=== PATIENT | female | born 1970 | race Caucasian/White ===

== ENCOUNTER 2018-06-26 11:44 | Emergency (ER) | payer MEDICAID ==
[2018-06-26 11:55] VITALS: BMI 28.6
[2018-06-26] MEDS ORDERED: Sodium Chloride 0.9% 1,000 ML IV STA (12:40)
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
[2018-06-26 15:02] LABS: BASO # 0.01 K/mm3 (0.0-2.0); BASO % 0.1 % (0.0-3.0); EOS % 0.6 % (1.5-5.0); GRAN # 5.35 (1.4-6.5); GRAN % 76.6 % (50.0-68.0); HEMOGLOBIN 11.6 g/dL (12.0-16.0); LYMPH # 0.9 (1.2-3.4); LYMPH % 13.3 % (22.0-35.0); MEAN CELL VOLUME 81.8 fl (80.0-105.0); MEAN CORPUSCULAR HEMOGLOBIN 26.7 pg (25.0-35.0); MEAN CORPUSCULAR HGB CONC 32.7 g/dl (31.0-37.0); MEAN PLATELET VOLUME 10.1 fl (7.0-11.0); MONO # 0.7 (0.1-0.6); MONO % 9.4 % (1.0-6.0); RBC 4.34 10^6/uL (3.5-6.1); RED CELL DISTRIBUTION WIDTH 16.8 % (11.5-14.5)
[2018-06-26 15:03] LABS: ALB/GLOB RATIO 1.2 (1.1-1.8); ALBUMIN 3.9 g/dL (3.0-4.8); ALT/SGPT 22 U/L (7-56); AST/SGOT 22 U/L (14-36); BLOOD UREA NITROGEN 10 mg/dL (7-21); CALCIUM 9.4 mg/dL (8.4-10.5); GFR NON-AFRICAN AMERICAN > 60
[2018-06-26 17:50] VITALS: BP 120/74; RESP 19; TEMP 98
[2018-06-26 17:55] VITALS: PULSE 90; O2SAT 99
--- NOTE | 2018-06-28 20:18 | US ---
HISTORY: Leg pain and swelling. Evaluate for DVT PHYSICIAN(S): Mao Lechuga MD. TECHNIQUE: Duplex sonography and color-flow Doppler with graded compression were used to evaluate the deep venous systems of both lower extremities. FINDINGS: The visualized deep venous systems of both lower extremities are sonographically normal and compressible. Normal wave forms and augmentation are seen. There is no sonographic evidence for deep venous thrombosis in the visualized segments of both lower extremities. IMPRESSION: No sonographic evidence for deep venous thrombosis in the visualized segments of both lower extremities.
== END 2018-06-26 17:56 | disposition left against medical advice (07) ==
LOC: ED 11:44
DX: M79.605 Pain in left leg (principal); M79.604 Pain in right leg

== ENCOUNTER 2018-08-28 14:16 | Emergency (ER) | payer MEDICAID ==
[2018-08-28 14:17] VITALS: BMI 28.6
[2018-08-28 14:35] VITALS: RESP 18; TEMP 98.3
--- NOTE | 2018-08-28 14:41 | ED PDOC ---
Arrival/HPI - General Time Seen by Provider: 08/28/18 14:19 Historian: Patient - History of Present Illness Narrative History of Present Illness (Text): 08/28/18 14:35 47yo female with pmhx of Ovarian CA with mets to her lung and bone (Currently on Chemo) bib EMS for complaint of nausea and vomiting. States she have had nausea and vomiting now daily for months secondary to her Chemo, but she have had 5epsiodes since this morning rather than the 3epsiodes she gets a day. Thinks is secondary to the Oxycodone she started a week ago. Notes generalized pain, which is chronic to her. Denies fever, chills, chest pain, SOB, diaphoresis, urinary symptoms, sick contact, any other complaint. Past Medical History - Provider Review Nursing Documentation Reviewed: Yes - Infectious Disease Hx of Infectious Diseases: None - Tetanus Immunization Tetanus Immunization: Unknown - Cardiac Hx Cardiac Disorders: No - Pulmonary Hx Respiratory Disorders: No - Neurological Hx Neurological Disorder: No - HEENT Hx HEENT Disorder: No - Renal Hx Renal Disorder: No - Endocrine/Metabolic Hx Endocrine Disorders: No - Hematological/Oncological Hx Blood Disorders: No Hx Blood Transfusion Reaction: No - Integumentary Hx Dermatological Disorder: No - Musculoskeletal/Rheumatological Hx Musculoskeletal Disorders: No - Gastrointestinal Hx Gastrointestinal Disorders: No - Genitourinary/Gynecological Hx Genitourinary Disorders: Yes Hx Ovarian Cancer: Yes - Psychiatric Hx Emotional Abuse: No Hx Physical Abuse: No Hx Substance Use: No - Surgical History Other/Comment: ROBOTIC HYSTERECTOMY;OVARIAN CYSTECTOMY - Anesthesia Hx Anesthesia: Yes Hx Anesthesia Reactions: No Hx Malignant Hyperthermia: No - Suicidal Assessment Feels Threatened In Home Enviroment: No Family/Social History - Physician Review Nursing Documentation Reviewed: Yes Family/Social History: Unknown Family HX Smoking Status: Never Smoked Hx Alcohol Use: No Hx Substance Use: No Allergies/Home Meds Allergies/Adverse Reactions: Allergies No Known Allergies Allergy (Verified 06/26/18 11:55) Home Medications: Home Meds Medication Instructions Recorded Confirmed Cyclophosphamide [Cytoxan] 0 mg PO DAILY 06/26/18 06/26/18 RX: Bevacizumab [Avastin] 0 ml IM DAILY 06/26/18 06/26/18 RX: Bevacizumab [Avastin] 0 ml IM DAILY 06/26/18 06/26/18 Prochlorperazine [Compazine] 10 mg PO PRN PRN 08/28/18 08/28/18 oxyCODONE/Acetaminophen [Percocet 1 tab PO PRN PRN 08/28/18 08/28/18 5/325 mg Tab] Review of Systems - Physician Review All systems were reviewed & negative as marked: Yes - Review of Systems Constitutional: Normal Eyes: Normal ENT: Normal Respiratory: Normal Cardiovascular: Normal Gastrointestinal: Nausea, Vomiting. absent: Abdominal Pain, Constipation, Diarrhea, Hematochezia, Hematemesis Genitourinary Female: Normal Musculoskeletal: Myalgias Skin: Normal Neurological: Normal Endocrine: Normal Hemo/Lymphatic: Normal Psychiatric: Normal Physical Exam Temperature: Afebrile Blood Pressure: Normal Pulse: Regular Respiratory Rate: Normal Appearance: Positive for: Well-Appearing, Non-Toxic, Comfortable Pain Distress: None Mental Status: Positive for: Alert and Oriented X 3 - Systems Exam Head: Present: Atraumatic, Normocephalic Pupils: Present: PERRL Extroacular Muscles: Present: EOMI Conjunctiva: Present: Normal Mouth: Present: Moist Mucous Membranes Neck: Present: Normal Range of Motion Respiratory/Chest: Present: Clear to Auscultation, Good Air Exchange. No: Respiratory Distress, Accessory Muscle Use Cardiovascular: Present: Regular Rate and Rhythm, Normal S1, S2. No: Murmurs Abdomen: No: Tenderness, Distention, Peritoneal Signs Back: Present: Normal Inspection Upper Extremity: Present: Normal Inspection. No: Cyanosis, Edema Lower Extremity: Present: Normal Inspection. No: Edema Neurological: Present: GCS=15, CN II-XII Intact, Speech Normal Skin: Present: Warm, Dry, Normal Color. No: Rashes Psychiatric: Present: Alert, Oriented x 3, Normal Insight, Normal Concentration Medical Decision Making ED Course and Treatment: 08/28/18 19:10 PT presented to ED For stated history. Her pain was controlled in ED with dilaudid after the first morning. Lab was reviewed and nonspecific She already have rx antiemesis at home. She was DC home and advised to continue with her medications and follow up with her PMD Disposition/Present on Arrival - Present on Arrival Any Indicators Present on Arrival: No History of DVT/PE: No History of Uncontrolled Diabetes: No Urinary Catheter: No History Surgical Site Infection Following: None - Disposition Have Diagnosis and Disposition been Completed?: Yes Diagnosis: Vomiting alone, Cancer associated pain Disposition: HOME/ ROUTINE Disposition Time: 18:00 Patient Plan: Discharge Condition: STABLE Discharge Instructions (ExitCare): Cancer Pain Syndromes (DC), Nausea and Vomiting, Adult (DC) Additional Instructions: Continue with your medications at home Follow up with your doctor Return to ED for any new or worsening symptoms Referrals: Concha Urban MD [Primary Care Provider] - Follow up with primary Forms: [employer] (Cymro)
[2018-08-28] MEDS ORDERED: Sodium Chloride 0.9% 1,000 ML IV STA (14:45)
[2018-08-28 15:22] LABS: VENOUS BLOOD GAS BASE EXCESS 2.7 mmol/L (0.0-2.0); VENOUS BLOOD GAS PO2 195 mm/Hg (30-55); VENOUS BLOOD PH 7.47 (7.32-7.43)
[2018-08-28] MEDS ORDERED: Morphine 4 mg/ml ISec IVP STA (15:22)
[2018-08-28] MEDS ORDERED: Morphine 2 mg/ml ISec IVP STA ×2 (15:23→16:13)
[2018-08-28 15:25] LABS: EOS % 0.1 % (1.5-5.0); GRAN # 8.64 (1.4-6.5); GRAN % 80.8 % (50.0-68.0); LYMPH # 0.8 (1.2-3.4); LYMPH % 7.4 % (22.0-35.0); MEAN CELL VOLUME 82.5 fl (80.0-105.0); MEAN CORPUSCULAR HEMOGLOBIN 26.6 pg (25.0-35.0); MEAN CORPUSCULAR HGB CONC 32.3 g/dl (31.0-37.0); MEAN PLATELET VOLUME 9.7 fl (7.0-11.0); MONO # 1.3 (0.1-0.6); MONO % 11.7 % (1.0-6.0); RBC 4.51 10^6/uL (3.5-6.1); RED CELL DISTRIBUTION WIDTH 16.2 % (11.5-14.5); WHITE BLOOD COUNT 10.7 10^3/uL (4.5-11.0)
[2018-08-28 15:30] LABS: ALB/GLOB RATIO 1.1 (1.1-1.8); ALBUMIN 4.1 g/dL (3.0-4.8); ALT/SGPT 25 U/L (7-56); AST/SGOT 42 U/L (14-36); BLOOD UREA NITROGEN 19 mg/dL (7-21); CALCIUM 9.7 mg/dL (8.4-10.5); GFR NON-AFRICAN AMERICAN > 60
[2018-08-28 15:31] LABS: INR 1.18; PARTIAL THROMBOPLASTIN TIME 24.9 Seconds (25.1-36.5); PROTHROMBIN TIME 13.5 SECONDS (9.4-12.5)
[2018-08-28] MEDS ORDERED: Potassium Chloride 40 mEq/30 ml LIQ UD PO STA (15:31)
[2018-08-28 15:42] LABS: TROPONIN I < 0.01 ng/mL
--- NOTE | 2018-08-28 15:50 | RAD ---
Date of service: 08/28/2018 HISTORY: Sepsis Patient COMPARISON: No prior. FINDINGS: LUNGS: No pulmonary infiltrate. PLEURA: No significant pleural effusion identified, no pneumothorax apparent. CARDIOVASCULAR: Normal heart size. No congestive change. No atherosclerotic calcification of the thoracic aorta. Left central venous infusion port. Questionable opacity lateral to the thoracic aortic arch. Rule out neoplasm. Additionally there is a nodular opacity at the medial left lung base and additional irregular opacity just above the mid left hemidiaphragm. There is a small rounded nodule at the right lung base and possibly a 2nd nodule. Consider further evaluation with computed tomography of the chest.. OSSEOUS STRUCTURES: No significant abnormalities. VISUALIZED UPPER ABDOMEN: Normal. OTHER FINDINGS: None. IMPRESSION: Multiple nodules and opacities. Consider further evaluation with computed tomography of the chest
[2018-08-28] MEDS ORDERED: HYDROmorphone 1 mg/ml ISec IVP STA (16:20)
[2018-08-28 20:21] VITALS: BP 135/82; PULSE 85; O2SAT 98
== END 2018-08-28 20:20 | disposition home or self-care (01) ==
LOC: ED 14:16
DX: R11.10 Vomiting, unspecified (principal); G89.3 Neoplasm related pain (acute) (chronic); Z85.43 Personal history of malignant neoplasm of ovary
CPT/HCPCS: 71045; 80053; 81025; 82803; 83735; 84100; 84145; 84484; 85025; 85610; 85730; 87040; 96374; 96375; 99285; J1170; J2270; J2405; J2765; J3480; J7030

== ENCOUNTER 2018-11-03 05:39 | Outpatient (CLI) | payer MEDICAID | END 2018-11-03 05:40 | disposition home or self-care (01) | LOC: PET-BROA 05:39 ==

== ENCOUNTER 2018-11-17 07:22 | Inpatient (IN) | payer MEDICAID ==
[2018-11-17 07:41] VITALS: BMI 23.3
[2018-11-17] MEDS ORDERED: Sodium Chloride 0.9% 1,000 ML IV ONE (07:50)
--- NOTE | 2018-11-17 07:59 | ED PDOC ---
Arrival/HPI - General Chief Complaint: Back Pain Time Seen by Provider: 11/17/18 07:25 Historian: Patient - History of Present Illness Narrative History of Present Illness (Text): 11/17/18 07:49 47 year old F with pmhx of Ovarian CA with mets to lung and bone (Currently on Chemo- last was 5d prior), chronic back pain, ovarian oophorectomy presents with chief complaint of chronic back pain. Patient reports she called Dr. Urban this morning who told her to present to the emergency department for evaluation of her back, likely admission and inpatient MRI L-Spine. Patient notes taking prescribed percocet 5/325mg at 0600 this morning which failed to relieve any pain. Patient also complains of left leg weakness x6 months (not recently worsened) mild constipation, and nausea since last night. Patient otherwise denies any enuresis, encoparesis or loss of sensation in her legs. No rash. Patient denies any fevers, chills, headache, dizziness, chest pain, shortness of breath, dyspnea on exertion, cough, diaphoresis, abdominal pain, diarrhea, neck pain, or any other complaint. Oncologist: Dr. Urban Symptom Onset: Gradual Symptom Course: Unchanged Activities at Onset: Light Context: Home Past Medical History - Provider Review Nursing Documentation Reviewed: Yes - Infectious Disease Hx of Infectious Diseases: None - Tetanus Immunization Tetanus Immunization: Unknown - Cardiac Hx Cardiac Disorders: No - Pulmonary Hx Respiratory Disorders: No - Neurological Hx Neurological Disorder: No - HEENT Hx HEENT Disorder: No - Renal Hx Renal Disorder: No - Endocrine/Metabolic Hx Endocrine Disorders: No - Hematological/Oncological Hx Blood Disorders: No Hx Blood Transfusion Reaction: No - Integumentary Hx Dermatological Disorder: No - Musculoskeletal/Rheumatological Hx Musculoskeletal Disorders: No - Gastrointestinal Hx Gastrointestinal Disorders: No - Genitourinary/Gynecological Hx Genitourinary Disorders: Yes Hx Ovarian Cancer: Yes - Psychiatric Hx Emotional Abuse: No Hx Physical Abuse: No Hx Substance Use: No - Surgical History Other/Comment: ROBOTIC HYSTERECTOMY;OVARIAN CYSTECTOMY - Anesthesia Hx Anesthesia: Yes Hx Anesthesia Reactions: No Hx Malignant Hyperthermia: No - Suicidal Assessment Feels Threatened In Home Enviroment: No Family/Social History - Physician Review Nursing Documentation Reviewed: Yes Family/Social History: Unknown Family HX Smoking Status: Never Smoked Hx Alcohol Use: No Hx Substance Use: No Allergies/Home Meds Allergies/Adverse Reactions: Allergies No Known Allergies Allergy (Verified 06/26/18 11:55) Home Medications: Home Meds Medication Instructions Recorded Confirmed Bevacizumab [Avastin] 0 ml IM DAILY 06/26/18 06/26/18 Bevacizumab [Avastin] 0 ml IM DAILY 06/26/18 06/26/18 Cyclophosphamide [Cytoxan] 0 mg PO DAILY 06/26/18 06/26/18 Prochlorperazine [Compazine] 10 mg PO PRN PRN 08/28/18 08/28/18 oxyCODONE/Acetaminophen [Percocet 1 tab PO PRN PRN 08/28/18 08/28/18 5/325 mg Tab] Review of Systems - Physician Review All systems were reviewed & negative as marked: Yes - Review of Systems Constitutional: absent: Fevers Eyes: absent: Vision Changes, Photophobia ENT: absent: Sore Throat, Rhinorrhea Respiratory: absent: SOB, Cough Cardiovascular: absent: Chest Pain, Calf Pain Gastrointestinal: Constipation, Nausea, Vomiting. absent: Abdominal Pain, Diarrhea, Hematochezia Genitourinary Female: absent: Dysuria, Hematuria, Urine Output Changes, Vaginal Bleeding, Vaginal Discharge Musculoskeletal: Back Pain. absent: Neck Pain Skin: absent: Rash Neurological: absent: Headache, Dizziness Physical Exam Vital Signs Reviewed: Yes Vital Signs Temp Pulse Resp BP Pulse Ox 11/17/18 07:32 100 F H 139 H 19 147/91 H 99 Temperature: Afebrile Blood Pressure: Normal Pulse: Tachycardic Respiratory Rate: Normal Appearance: Positive for: Well-Appearing, Non-Toxic, Comfortable Pain Distress: Moderate Mental Status: Positive for: Alert and Oriented X 3 - Systems Exam Head: Present: Atraumatic, Normocephalic Pupils: Present: PERRL Extroacular Muscles: Present: EOMI Conjunctiva: Present: Normal Ears: Present: Normal, NORMAL TM Mouth: Present: Moist Mucous Membranes Neck: Present: Normal Range of Motion. No: Meningeal Signs, MIDLINE TENDERNESS Respiratory/Chest: Present: Clear to Auscultation, Good Air Exchange. No: Respiratory Distress, Accessory Muscle Use Cardiovascular: Present: Regular Rate and Rhythm, Normal S1, S2. No: Murmurs Abdomen: No: Tenderness, Distention, Peritoneal Signs Back: Present: Other (refused back exam) Upper Extremity: Present: Normal Inspection. No: Cyanosis, Edema Lower Extremity: Present: NORMAL PULSES, Neurovascularly Intact, Capillary Refill < 2 s, Other (2/5 strength to LLE (chronic per pt)). No: Edema, CALF TENDERNESS, Tenderness, Swelling, Temperature Abnormalties Neurological: Present: GCS=15, CN II-XII Intact, Speech Normal Skin: Present: Warm, Dry, Normal Color. No: Rashes Psychiatric: Present: Alert, Oriented x 3, Normal Insight, Normal Concentration Medical Decision Making ED Course and Treatment: 11/17/18 07:48 Impression: 47 year old F presents with chief complaint of worsening chronic back pain. Hx of Ovarian cancer w/ mets to L3. Pt reports pain to lower lumbar area, without trauma or cauda equina signs: No enuresis / encoparesis or saddle anesthesia. Pt refuses lower back exam and notes diffuse tenderness to her back. Pt notes previous radiation treatment to her back with improvement 6 months prior but notes increasingly worsening pain over the past 4-5 months. She otherwise denies any abdominal pain, rash. No hx of IVDU or abnormal heart rythmn. No chest pain or shortness of breath. No GI or complaints other than mild constipation. No dark or blood stool. Likely Recurrent L3 metastatic Ovarian CA pain w/ out clinical signs or symptoms of cord compression. Sent in by Dr. Urban for Admission to hospitalist w/ inpt MRI and referral to Dr. Lechuga for possible kyphoplasty. Pt had an PET on 11/04 remarkable to probable pathologic L3 fx. Plan: -- Labs -- EKG -- Chest X-ray -- Toradol -- UA -- Reassess and disposition Prior Visits: Notes and results from previous visits were reviewed. Progress Notes: EKG shows Sinus Tachycardi at 134 BPM, No stemi 11/17/18 09:18 Vitals improved w/ fluids and pain meds, less tachy. Pt endorsed continued pain however with mild improvement, will order additional toradol, morphine. Appreciate consult w/ Dr. Nicole: to admit to his service Placed consult order to Dr. Lechuga. Pt in NAD, agreeable to plan. - Scribe Statement The provider has reviewed the documentation as recorded by the Beverly Mosher All medical record entries made by the Scribe were at my direction and personally dictated by me. I have reviewed the chart and agree that the record accurately reflects my personal performance of the history, physical exam, medical decision making, and the department course for this patient. I have also personally directed, reviewed, and agree with the discharge instructions and disposition. Disposition/Present on Arrival - Present on Arrival Any Indicators Present on Arrival: No History of DVT/PE: No History of Uncontrolled Diabetes: No Urinary Catheter: No History of Decub. Ulcer: No History Surgical Site Infection Following: None - Disposition Have Diagnosis and Disposition been Completed?: Yes Diagnosis: Back pain, Anemia Disposition Time: 08:37 Patient Problems: Current Active Problems Problem Status Onset Anemia Acute Back pain Acute Condition: STABLE Forms: [employer] (Lao)
[2018-11-17 08:20] LABS: BASO # 0.01 K/mm3 (0.0-2.0); BASO % 0.1 % (0.0-3.0); HEMOGLOBIN 8.2 g/dL (12.0-16.0); LYMPH # 0.4 (1.2-3.4); LYMPH % 4.5 % (22.0-35.0); MEAN CELL VOLUME 85.9 fl (80.0-105.0); MEAN CORPUSCULAR HGB CONC 31.4 g/dl (31.0-37.0); MEAN PLATELET VOLUME 8.8 fl (7.0-11.0); MONO % 0.5 % (1.0-6.0); PLATELET COUNT 331 10^3/uL (120.0-450.0); RBC 3.04 10^6/uL (3.5-6.1); RED CELL DISTRIBUTION WIDTH 23.1 % (11.5-14.5)
[2018-11-17 08:56] LABS: LYMPHOCYTE 2 % (22.0-35.0); NEUTROPHIL 98 % (50.0-70.0); PLATELET ESTIMATE NORMAL (NORMAL)
[2018-11-17 09:07] LABS: ALT/SGPT 11 U/L (7-56); AST/SGOT 32 U/L (14-36); BLOOD UREA NITROGEN 10 mg/dL (7-21); CALCIUM 8.2 mg/dL (8.4-10.5); GFR NON-AFRICAN AMERICAN > 60
[2018-11-17] MEDS ORDERED: Morphine 4 mg/ml ISec IVP STA (09:16)
[2018-11-17] MEDS ORDERED: POLYETHYLENE GLYCOL 3350 17 GM/Dose PACKET PO SCH (10:00)
[2018-11-17] MEDS ORDERED: Magnesium Oxide 400 mg Tab UD PO STA (10:01)
--- NOTE | 2018-11-17 10:02 | CP.PCM.HP ---
<Genaro Waller - Last Filed: 11/17/18 14:08> History of Present Illness - History of Present Illness History of Present Illness: PGY-1 Medicine H&P for Dr. Nicole CC: Intractable back pain Patient is a 47 year old female with past medical history of ovarian cancer s/p ovarian oophorectomy with mets to lung and bone (Currently on Chemo- last was 5 days prior), chronic back pain, presents with chief complaint of chronic back pain. Patient reports that she saw her PMD, Dr. Urban this morning who told her to present to the emergency department for evaluation of her back pain. She is complaining of lower back pain that she describes as sharp, 10/10 at its worst, and prevents her from ambulating. She is also complaining of pain on her right upper chest which is also sharp in nature. She states that she takes Percocet and Motrin at home which only helps a little bit. Patient is currently on chemotherapy and admits to not having much of an appetite lately. She is complaining of constipation and her last bowel movement was 10 days ago. Patient denies any fevers, chills, headache, dizziness, chest pain, shortness of breath, dyspnea on exertion, cough, diaphoresis, abdominal pain, diarrhea, neck pain, or urinary symptoms. 12 point ROS reviewed and negative except mentioned in HPI. PMH: Ovarian cancer s/p ovarian oophorectomy with mets to lung and bone (Currently on Chemo- last was 5d prior), chronic back pain PSHx: Ovarian oophorectomy Social Hx: Denies alcohol, tobacco, or drug use. Family Hx: denies Allergies: NKDA PMD/Oncologist: Dr. Urban Present on Admission - Present on Admission Any Indicators Present on Admission: No History of DVT/PE: No History of Uncontrolled Diabetes: No Urinary Catheter: No Decubitus Ulcer Present: No Past Patient History - Infectious Disease Hx of Infectious Diseases: None - Tetanus Immunizations Tetanus Immunization: Unknown - Past Medical History & Family History Past Medical History?: Yes - Past Social History Smoking Status: Never Smoked - CARDIAC Hx Cardiac Disorders: No - PULMONARY Hx Respiratory Disorders: No - NEUROLOGICAL Hx Neurological Disorder: No - HEENT Hx HEENT Problems: No - RENAL Hx Chronic Kidney Disease: No - ENDOCRINE/METABOLIC Hx Endocrine Disorders: No - HEMATOLOGICAL/ONCOLOGICAL Hx Blood Disorders: No Hx Blood Transfusion Reaction: No - INTEGUMENTARY Hx Dermatological Problems: No - MUSCULOSKELETAL/RHEUMATOLOGICAL Hx Musculoskeletal Disorders: No - GASTROINTESTINAL Hx Gastrointestinal Disorders: No - GENITOURINARY/GYNECOLOGICAL Hx Genitourinary Disorders: Yes Hx Ovarian Cancer: Yes - PSYCHIATRIC Hx Emotional Abuse: No Hx Physical Abuse: No Hx Substance Use: No - SURGICAL HISTORY Other/Comment: ROBOTIC HYSTERECTOMY;OVARIAN CYSTECTOMY - ANESTHESIA Hx Anesthesia: Yes Hx Anesthesia Reactions: No Hx Malignant Hyperthermia: No Meds Allergies/Adverse Reactions: Allergies Allergy/AdvReac Type Severity Reaction Status Date / Time No Known Allergies Allergy Verified 06/26/18 11:55 Physical Exam - Constitutional Appears: Chronically Ill Additional comments: Uncomfortable, in pain - Head Exam Head Exam: ATRAUMATIC, NORMAL INSPECTION - Eye Exam Eye Exam: EOMI, Normal appearance - ENT Exam ENT Exam: Normal Oropharynx Additional comments: No oral thrush noted - Respiratory Exam Respiratory Exam: Clear to Auscultation Bilateral. absent: Rales, Rhonchi, Wheezes, Respiratory Distress - Cardiovascular Exam Cardiovascular Exam: Tachycardia, +S1, +S2. absent: Gallop, Rubs, Systolic Mur mur - GI/Abdominal Exam GI & Abdominal Exam: Normal Bowel Sounds, Soft. absent: Distended, Guarding, Tenderness - Extremities Exam Extremities exam: Positive for: tenderness - Neurological Exam Neurological exam: Alert, CN II-XII Intact, Oriented x3 - Psychiatric Exam Psychiatric exam: Normal Affect, Normal Mood - Skin Skin Exam: Dry, Intact, Normal Color, Warm Results - Vital Signs Recent Vital Signs: Last Vital Signs Temp 100 F H 11/17/18 07:32 Pulse 130 H 11/17/18 09:25 Resp 18 11/17/18 09:25 BP 120/75 11/17/18 09:25 Pulse Ox 99 11/17/18 09:25 - Labs Result Diagrams: 11/17/18 08:00 11/17/18 08:00 Labs: Laboratory Results - last 24 hr 11/17/18 11/17/18 08:00 08:00 WBC 8.0 D RBC 3.04 L Hgb 8.2 L D Hct 26.1 L MCV 85.9 D MCH 27.0 MCHC 31.4 RDW 23.1 H Plt Count 331 MPV 8.8 Neut % (Auto) 94.9 H Lymph % (Auto) 4.5 L [place] % (Auto) 0.5 L Eos % (Auto) 0.0 L Baso % (Auto) 0.1 Lymph # (Auto) 0.4 L [place] # (Auto) 0.0 L Eos # (Auto) 0.0 Baso # (Auto) 0.01 Absolute Neuts (auto) 7.58 H Neutrophils % (Manual) 98 H Lymphocytes % (Manual) 2 L Monocytes % (Manual) TEST NOT PERFORMED Platelet Evaluation Normal Sodium 131 L Chloride 92 L Carbon Dioxide 31 BUN 10 Creatinine 0.3 L Est GFR ( Amer) > 60 Est GFR (Non-Af Amer) > 60 Random Glucose 187 H Calcium 8.2 L Magnesium 1.5 L Total Bilirubin 0.3 AST 32 ALT 11 Alkaline Phosphatase 106 Total Protein 6.1 Albumin 3.0 Globulin 3.1 Albumin/Globulin Ratio 1.0 L Assessment & Plan - Assessment and Plan (Free Text) Assessment: Patient is a 47 year old female with past medical histiry of ovarian cancer with mets to lung and bone (Currently on Chemo- last was 5d prior), chronic back mike n, ovarian oophorectomy presents with chief complaint of intractable back pain. Plan: Intractable back pain- likely 2/2 to metastatic cancer - PET Scan (11/03): Pulmonary and osseous metastatic disease. Lytic lesion at L3 vertebral body with cortical disruption concerning for pathologic fracture. - MRI of Lumbar spine: pending - Toradol 15mg IV Q6 PRN - Morphine 2mf Q6 PRN - Heme-Onc consulted, Dr. John Urban - IR consulted, Dr. Mao Lechuga - PT/OT evaluation Sinus tachycardia- r/o Pulmonary Embolism - Likely 2/2 pain - EKG: Sinus tachycardia @ 135, no ST changes - LE Venous Dopplers: No DVT - Pain control with Toradol and Morphine - Troponin: <0.01 X 1 Normocytic anemia - Iron studies, reticulocytes, B12, folate: pending - Heme-onc consulted, Dr. John Urban - Type and screen Hypokalemia, hypomagnesemia - Potassium and magnesium repleted - Continue to monitor Constipation - Miralax daily Prophylaxis - Hold AC for now Patient seen and case discussed with attending, Dr. Corey Waller, PGY-1 <Elvia Nicole - Last Filed: 11/17/18 14:53> Results - Vital Signs Recent Vital Signs: Last Vital Signs Temp 98 F 11/17/18 12:28 Pulse 113 H 11/17/18 13:51 Resp 18 11/17/18 13:51 BP 130/95 H 11/17/18 12:28 Pulse Ox 100 11/17/18 11:28 - Labs Result Diagrams: 11/17/18 08:00 11/17/18 08:00 Labs: Laboratory Results - last 24 hr 11/17/18 11/17/18 11/17/18 08:00 08:00 09:51 WBC 8.0 D RBC 3.04 L Hgb 8.2 L D Hct 26.1 L MCV 85.9 D MCH 27.0 MCHC 31.4 RDW 23.1 H Plt Count 331 MPV 8.8 Neut % (Auto) 94.9 H Lymph % (Auto) 4.5 L [place] % (Auto) 0.5 L Eos % (Auto) 0.0 L Baso % (Auto) 0.1 Lymph # (Auto) 0.4 L [place] # (Auto) 0.0 L Eos # (Auto) 0.0 Baso # (Auto) 0.01 Absolute Neuts (auto) 7.58 H Neutrophils % (Manual) 98 H Lymphocytes % (Manual) 2 L Monocytes % (Manual) TEST NOT PERFORMED Platelet Evaluation Normal Retic Count Sodium 131 L Potassium 2.9 L* Chloride 92 L Carbon Dioxide 31 Anion Gap 11 BUN 10 Creatinine 0.3 L Est GFR ( Amer) > 60 Est GFR (Non-Af Amer) > 60 Random Glucose 187 H Calcium 8.2 L Magnesium 1.5 L Iron TIBC % Saturation Total Bilirubin 0.3 AST 32 ALT 11 Alkaline Phosphatase 106 Troponin I Total Protein 6.1 Albumin 3.0 Globulin 3.1 Albumin/Globulin Ratio 1.0 L Blood Type O POSITIVE Blood Type Confirm Antibody Screen Negative BBK History Checked No verified bt 11/17/18 11/17/18 11/17/18 09:59 09:59 09:59 WBC RBC Hgb Hct MCV MCH MCHC RDW Plt Count MPV Neut % (Auto) Lymph % (Auto) [place] % (Auto) Eos % (Auto) Baso % (Auto) Lymph # (Auto) [place] # (Auto) Eos # (Auto) Baso # (Auto) Absolute Neuts (auto) Neutrophils % (Manual) Lymphocytes % (Manual) Monocytes % (Manual) Platelet Evaluation Retic Count 0.26 L Sodium Potassium Chloride Carbon Dioxide Anion Gap BUN Creatinine Est GFR ( Amer) Est GFR (Non-Af Amer) Random Glucose Calcium Magnesium Iron 71 TIBC 160 L % Saturation 45 Total Bilirubin AST ALT Alkaline Phosphatase Troponin I < 0.01 Total Protein Albumin Globulin Albumin/Globulin Ratio Blood Type Blood Type Confirm Antibody Screen BBK History Checked 11/17/18 10:06 WBC RBC Hgb Hct MCV MCH MCHC RDW Plt Count MPV Neut % (Auto) Lymph % (Auto) [place] % (Auto) Eos % (Auto) Baso % (Auto) Lymph # (Auto) [place] # (Auto) Eos # (Auto) Baso # (Auto) Absolute Neuts (auto) Neutrophils % (Manual) Lymphocytes % (Manual) Monocytes % (Manual) Platelet Evaluation Retic Count Sodium Potassium Chloride Carbon Dioxide Anion Gap BUN Creatinine Est GFR ( Amer) Est GFR (Non-Af Amer) Random Glucose Calcium Magnesium Iron TIBC % Saturation Total Bilirubin AST ALT Alkaline Phosphatase Troponin I Total Protein Albumin Globulin Albumin/Globulin Ratio Blood Type Blood Type Confirm O POSITIVE Antibody Screen BBK History Checked Attending/Attestation - Attestation I have personally seen and examined this patient.: Yes I have fully participated in the care of the patient.: Yes I have reviewed all pertinent clinical information: Yes Notes (Text): 11/17/18 14:47 47 year old female with past medical history of metastatic ovarian cancer (to lung and bone) on chemotherapy, history of ovarian oopherectomy, and history of chronic back pain who presents with complaint of intractable back pain. She had a recent outpatient PET scan which showed pulmonary and osseous metastatic disease; lytic lesion at L3 vertebral body with cortical disruption concerning for pathologic fracture. MRI spine is ordered. Continue with analgesics prn for pain. IR evaluation is ordered as per outpatient PMD request for evaluation of possible kyphoplasty. Patient may need PT as well. Serial cardiac enzymes are ordered for complaint of chest pain. EKG showed sinus tachycardia. Sinus tachycardia likely secondary to pain. Analgesics ordered as above. LE dopplers were negative for DVT. Patient is not hypoxic. Patient also found to have normocytic anemia. Anemia workup is ordered as above. Will follow up with hematology/oncology recommendations. Will start on miralax for complaint of constipation. Replete and repeat lytes. Elvia Nicole MD Hospitalist.
[2018-11-17] MEDS ORDERED: Potassium Chloride 20 mEq ER Tab PO STA (10:22)
--- NOTE | 2018-11-17 10:30 | RAD ---
Date of service: 11/17/2018 HISTORY: back pain COMPARISON: 08/28/2018 TECHNIQUE: 1 view obtained. FINDINGS: LUNGS: 4.8 cm mass in the left upper lobe. There is a 12 mm nodule at the right lung base. Findings are unchanged PLEURA: No significant pleural effusion identified, no pneumothorax apparent. CARDIOVASCULAR: No aortic atherosclerotic calcification present. Normal cardiac size. No pulmonary vascular congestion. OSSEOUS STRUCTURES: No significant abnormalities. VISUALIZED UPPER ABDOMEN: Normal. OTHER FINDINGS: Port-A-Cath IMPRESSION: 4.8 cm mass in the left upper lobe. There is a 12 mm nodule at the right lung base. Findings are unchanged
[2018-11-17 10:37] LABS: IRON 71 ug/dL (45-180)
[2018-11-17 10:46] LABS: % IRON SATURATION 45 % (20-55); TOTAL IRON BINDING CAPACITY 160 ug/dL (265-497)
[2018-11-17 10:49] LABS: TROPONIN I < 0.01 ng/mL
--- NOTE | 2018-11-17 11:34 | CARD ---
APPROVED REPORT Date of service: 11/17/2018 EKG Measurement Heart [id number] <Conclusion> Sinus tachycardia Otherwise normal ECG
[2018-11-17] MEDS ORDERED: Influenza Vaccine 60 mcg/0.5 mL SYR (4YR UP) IM ONE (14:19)
[2018-11-17] MEDS ORDERED: Gadodiamide 287 MG/ML VIAL (15ML) IV ONE (14:23)
--- NOTE | 2018-11-17 15:18 | MRI ---
Date of service: 11/17/2018 PROCEDURE: MR LUMBAR SPINE WITH AND WITHOUT CONTRAST HISTORY: rule out mets. COMPARISON: None available. TECHNIQUE: Multiecho multiplanar sequences were performed through the lumbar spine with and without the use of intravenous contrast. 15 cc of Omniscan FINDINGS: Normal lumbar lordosis. Vertebral body heights are preserved. Diffuse metastatic disease is seen throughout the spine. Conus medullaris unremarkable at the level of T12 Paraspinal soft tissues are unremarkable. There enhancement of the bony metastases. There is no evidence of epidural tumor invasion T12-L1: No disc herniation, spinal canal stenosis or neural foraminal narrowing. L1-2: No disc herniation, spinal canal stenosis or neural foraminal narrowing. L2-3: No disc herniation, spinal canal stenosis or neural foraminal narrowing. L3-4: No disc herniation, spinal canal stenosis or neural foraminal narrowing. L4-5: No disc herniation, spinal canal stenosis or neural foraminal narrowing. L5-S1: There is disc bulging and degeneration with mild anterolisthesis at L5-S1. There is moderate to severe bilateral foraminal stenosis but no central stenosis. OTHER FINDINGS: None. IMPRESSION: Diffuse bony metastatic disease throughout the spine. No evidence of vertebral compression fracture or epidural invasion. Disc degeneration with foraminal stenosis at L5-S1
[2018-11-17 16:15] LABS: BLOOD UREA NITROGEN 8 mg/dL (7-21); CALCIUM 8.1 mg/dL (8.4-10.5); GFR NON-AFRICAN AMERICAN > 60
[2018-11-17] MEDS: Morphine 2 mg/ml ISec IVP PRN (16:16)
[2018-11-17 16:17] LABS: TROPONIN I < 0.01 ng/mL
[2018-11-17 17:29] LABS: URINE BILIRUBIN NEGATIVE (NEGATIVE); URINE BLOOD NEGATIVE (NEGATIVE); URINE GLUCOSE (UA) NEGATIVE (NEGATIVE); URINE LEUKOCYTE ESTERASE MODERATE Leu/uL (NEGATIVE); URINE PROTEIN NEGATIVE mg/dL (<30 mg/dL)
[2018-11-17 17:32] LABS: URINE APPEARANCE SL CLOUDY (CLEAR); URINE COLOR YELLOW (YELLOW)
[2018-11-17 17:47] LABS: URINE BACTERIA MOD /hpf; URINE WBC 25 - 30 /hpf (0-6)
[2018-11-17 18:06] LABS: FOLATE 2.6 ng/mL
[2018-11-17] MEDS ORDERED: Morphine 2 mg/ml ISec IVP ONE (18:28)
--- NOTE | 2018-11-17 22:17 | CP.PCM.CON ---
History of Present Illness - History of Present Illness History of Present Illness: 47 year old female with a history of stage IV ovarian cancer on chemotherapy, presenting with intractable back pain. The patient notes to worsening lower back pain which is 10/10 at times. An outpatient PET CT scan was suggestive of pathologic vertebral body fracture involving the L-spine. Case discussed with Dr. Lechuga for possibility of kyphoplasty pending MRI results. Past medical history: Stage IV ovarian cancer Past surgical history: DRAFTER SEISMOGRAPH debulking surgery Family history: Denies hematologic and oncologic problems Social history: Denies tobacco, alcohol, and illicit drug use. Allergies: NKA Review of systems: All remaining review of systems including HEENT, cardiovascular, respiratory, gastrointestinal, genitourinary,k musculoskeletal, dermatologic, neurologic, and psychiatric are negative unless mentioned in the HPI. Past Patient History - Infectious Disease Hx of Infectious Diseases: None - Tetanus Immunizations Tetanus Immunization: Unknown - Past Medical History & Family History Past Medical History?: Yes - Past Social History Smoking Status: Never Smoked - CARDIAC Hx Cardiac Disorders: No - PULMONARY Hx Respiratory Disorders: No - NEUROLOGICAL Hx Neurological Disorder: No - HEENT Hx HEENT Problems: No - RENAL Hx Chronic Kidney Disease: No - ENDOCRINE/METABOLIC Hx Endocrine Disorders: No - HEMATOLOGICAL/ONCOLOGICAL Hx Blood Disorders: No Hx Blood Transfusion Reaction: No - INTEGUMENTARY Hx Dermatological Problems: No - MUSCULOSKELETAL/RHEUMATOLOGICAL Hx Musculoskeletal Disorders: No - GASTROINTESTINAL Hx Gastrointestinal Disorders: No - GENITOURINARY/GYNECOLOGICAL Hx Genitourinary Disorders: Yes Hx Ovarian Cancer: Yes - PSYCHIATRIC Hx Emotional Abuse: No Hx Physical Abuse: No Hx Substance Use: No - SURGICAL HISTORY Other/Comment: ROBOTIC HYSTERECTOMY;OVARIAN CYSTECTOMY - ANESTHESIA Hx Anesthesia: Yes Hx Anesthesia Reactions: No Hx Malignant Hyperthermia: No Meds Allergies/Adverse Reactions: Allergies Allergy/AdvReac Type Severity Reaction Status Date / Time No Known Allergies Allergy Verified 06/26/18 11:55 - Medications Medications: Current Medications Ketorolac Tromethamine (Toradol) 15 mg IVP Q6 PRN PRN Reason: Pain, Mild (1-3) Last Admin: 11/17/18 18:59 Dose: 15 mg Lidocaine (Lidoderm) 1 ea TD DAILY MARYSE Morphine Sulfate (Morphine) 2 mg IVP Q6 PRN PRN Reason: Pain, severe (8-10) Last Admin: 11/17/18 16:16 Dose: 2 mg Ondansetron HCl (Zofran Inj) 4 mg IVP Q6H PRN PRN Reason: Nausea/Vomiting Polyethylene Glycol (Miralax) 17 gm PO DAILY MARYSE Last Admin: 11/17/18 12:34 Dose: 17 gm Physical Exam - Head Exam Head Exam: ATRAUMATIC - Eye Exam Eye Exam: Normal appearance - ENT Exam ENT Exam: Mucous Membranes Dry - Respiratory Exam Respiratory Exam: NORMAL BREATHING PATTERN - Cardiovascular Exam Cardiovascular Exam: +S1, +S2 - GI/Abdominal Exam GI & Abdominal Exam: Normal Bowel Sounds - Extremities Exam Extremities exam: Positive for: normal inspection - Neurological Exam Neurological exam: Oriented x3 - Psychiatric Exam Psychiatric exam: Normal Affect, Normal Mood - Skin Skin Exam: Warm Results - Vital Signs Recent Vital Signs: Last Vital Signs Temp 99 F 11/17/18 17:17 Pulse 130 H 11/17/18 17:17 Resp 18 11/17/18 17:17 BP 117/61 11/17/18 17:17 Pulse Ox 100 11/17/18 11:28 - Labs Result Diagrams: 11/17/18 08:00 11/17/18 15:50 Labs: Laboratory Results - last 24 hr 11/17/18 11/17/18 11/17/18 08:00 08:00 09:51 WBC 8.0 D RBC 3.04 L Hgb 8.2 L D Hct 26.1 L MCV 85.9 D MCH 27.0 MCHC 31.4 RDW 23.1 H Plt Count 331 MPV 8.8 Neut % (Auto) 94.9 H Lymph % (Auto) 4.5 L [place] % (Auto) 0.5 L Eos % (Auto) 0.0 L Baso % (Auto) 0.1 Lymph # (Auto) 0.4 L [place] # (Auto) 0.0 L Eos # (Auto) 0.0 Baso # (Auto) 0.01 Absolute Neuts (auto) 7.58 H Neutrophils % (Manual) 98 H Lymphocytes % (Manual) 2 L Monocytes % (Manual) TEST NOT PERFORMED Platelet Evaluation Normal Retic Count Sodium 131 L Potassium 2.9 L* Chloride 92 L Carbon Dioxide 31 Anion Gap 11 BUN 10 Creatinine 0.3 L Est GFR ( Amer) > 60 Est GFR (Non-Af Amer) > 60 Random Glucose 187 H Calcium 8.2 L Magnesium 1.5 L Iron TIBC % Saturation Ferritin Total Bilirubin 0.3 AST 32 ALT 11 Alkaline Phosphatase 106 Troponin I Total Protein 6.1 Albumin 3.0 Globulin 3.1 Albumin/Globulin Ratio 1.0 L Vitamin B12 Folate Urine Color Urine Appearance Urine pH Ur Specific [place] Urine Protein Urine Glucose (UA) Urine Ketones Urine Blood Urine Nitrate Urine Bilirubin Urine Urobilinogen Ur Leukocyte Esterase Urine RBC Urine WBC Ur Epithelial Cells Urine Bacteria Blood Type O POSITIVE Blood Type Confirm Antibody Screen Negative BBK History Checked No verified bt 11/17/18 11/17/18 11/17/18 09:59 09:59 09:59 WBC RBC Hgb Hct MCV MCH MCHC RDW Plt Count MPV Neut % (Auto) Lymph % (Auto) [place] % (Auto) Eos % (Auto) Baso % (Auto) Lymph # (Auto) [place] # (Auto) Eos # (Auto) Baso # (Auto) Absolute Neuts (auto) Neutrophils % (Manual) Lymphocytes % (Manual) Monocytes % (Manual) Platelet Evaluation Retic Count 0.26 L Sodium Potassium Chloride Carbon Dioxide Anion Gap BUN Creatinine Est GFR ( Amer) Est GFR (Non-Af Amer) Random Glucose Calcium Magnesium Iron 71 TIBC 160 L % Saturation 45 Ferritin 862.0 Total Bilirubin AST ALT Alkaline Phosphatase Troponin I < 0.01 Total Protein Albumin Globulin Albumin/Globulin Ratio Vitamin B12 571 Folate 2.6 Urine Color Urine Appearance Urine pH Ur Specific [place] Urine Protein Urine Glucose (UA) Urine Ketones Urine Blood Urine Nitrate Urine Bilirubin Urine Urobilinogen Ur Leukocyte Esterase Urine RBC Urine WBC Ur Epithelial Cells Urine Bacteria Blood Type Blood Type Confirm Antibody Screen BBK History Checked 11/17/18 11/17/18 11/17/18 10:06 15:50 17:20 WBC RBC Hgb Hct MCV MCH MCHC RDW Plt Count MPV Neut % (Auto) Lymph % (Auto) [place] % (Auto) Eos % (Auto) Baso % (Auto) Lymph # (Auto) [place] # (Auto) Eos # (Auto) Baso # (Auto) Absolute Neuts (auto) Neutrophils % (Manual) Lymphocytes % (Manual) Monocytes % (Manual) Platelet Evaluation Retic Count Sodium 133 Potassium 3.6 Chloride 94 L Carbon Dioxide 29 Anion Gap 14 BUN 8 Creatinine 0.3 L Est GFR ( Amer) > 60 Est GFR (Non-Af Amer) > 60 Random Glucose 86 Calcium 8.1 L Magnesium Iron TIBC % Saturation Ferritin Total Bilirubin AST ALT Alkaline Phosphatase Troponin I < 0.01 Total Protein Albumin Globulin Albumin/Globulin Ratio Vitamin B12 Folate Urine Color Yellow Urine Appearance Sl cloudy Urine pH 6.0 Ur Specific [place] 1.015 Urine Protein Negative Urine Glucose (UA) Negative Urine Ketones Negative Urine Blood Negative Urine Nitrate Negative Urine Bilirubin Negative Urine Urobilinogen 1.0 H Ur Leukocyte Esterase Moderate H Urine RBC None Urine WBC 25 - 30 H Ur Epithelial Cells 6 - 8 H Urine Bacteria Mod Blood Type Blood Type Confirm O POSITIVE Antibody Screen BBK History Checked 11/17/18 21:44 WBC RBC Hgb Hct MCV MCH MCHC RDW Plt Count MPV Neut % (Auto) Lymph % (Auto) [place] % (Auto) Eos % (Auto) Baso % (Auto) Lymph # (Auto) [place] # (Auto) Eos # (Auto) Baso # (Auto) Absolute Neuts (auto) Neutrophils % (Manual) Lymphocytes % (Manual) Monocytes % (Manual) Platelet Evaluation Retic Count Sodium Potassium Chloride Carbon Dioxide Anion Gap BUN Creatinine Est GFR ( Amer) Est GFR (Non-Af Amer) Random Glucose Calcium Magnesium Iron TIBC % Saturation Ferritin Total Bilirubin AST ALT Alkaline Phosphatase Troponin I < 0.01 Total Protein Albumin Globulin Albumin/Globulin Ratio Vitamin B12 Folate Urine Color Urine Appearance Urine pH Ur Specific [place] Urine Protein Urine Glucose (UA) Urine Ketones Urine Blood Urine Nitrate Urine Bilirubin Urine Urobilinogen Ur Leukocyte Esterase Urine RBC Urine WBC Ur Epithelial Cells Urine Bacteria Blood Type Blood Type Confirm Antibody Screen BBK History Checked Assessment & Plan (1) Back pain Assessment and Plan: pathologic fracture by PET CT for possible kyphoplasty by Dr. Lechuga pending MRI L-spine pain meds with bowel regimen Status: Acute (2) Anemia Assessment and Plan: secondary to chemotherapy and chronic disease from malignancy will give a dose of Aranesp Status: Acute (3) Ovarian cancer Assessment and Plan: stage IV bone metastasis on salvage chemotherapy (Doxil + Avastin) outpatient treatment Thank you for this interesting consult. Status: Acute
[2018-11-18 06:28] LABS: BASO # 0.01 K/mm3 (0.0-2.0); BASO % 0.3 % (0.0-3.0); LYMPH # 0.3 (1.2-3.4); LYMPH % 7.6 % (22.0-35.0); MEAN CELL VOLUME 87.2 fl (80.0-105.0); MEAN CORPUSCULAR HEMOGLOBIN 26.3 pg (25.0-35.0); MEAN CORPUSCULAR HGB CONC 30.2 g/dl (31.0-37.0); MEAN PLATELET VOLUME 9.3 fl (7.0-11.0); MONO # 0.1 (0.1-0.6); MONO % 1.5 % (1.0-6.0); RBC 3.04 10^6/uL (3.5-6.1)
[2018-11-18 07:42] LABS: ALB/GLOB RATIO 0.9 (1.1-1.8); ALBUMIN 3.2 g/dL (3.0-4.8); ALT/SGPT 27 U/L (7-56); AST/SGOT 62 U/L (14-36); BLOOD UREA NITROGEN 8 mg/dL (7-21); CALCIUM 8.6 mg/dL (8.4-10.5); GFR NON-AFRICAN AMERICAN > 60
[2018-11-18] MEDS: Sodium Chloride 0.45% 1,000 ML IV SCH (10:59)
[2018-11-18] MEDS: POLYETHYLENE GLYCOL 3350 17 GM/Dose PACKET PO SCH ×2 (10:59→18:08)
[2018-11-18] MEDS: Lidocaine 5% Patch TD SCH (10:59)
[2018-11-18] MEDS: Morphine 2 mg/ml ISec IVP PRN ×2 (11:05→22:01)
[2018-11-18 11:54] LABS: INR 1.27; PARTIAL THROMBOPLASTIN TIME 30.4 Seconds (26.9-38.3); PROTHROMBIN TIME 14.4 SECONDS (9.4-12.5)
--- NOTE | 2018-11-18 13:14 | CP.PCM.PN ---
<Luis Craft - Last Filed: 11/18/18 13:10> Subjective - Date & Time of Evaluation Date of Evaluation: 11/18/18 Time of Evaluation: 08:00 - Subjective Subjective: Luis Craft PGY-1 Progress Note for Hospitalist Service Patient seen and evaluated at bedside. No acute events reported overnight. Patient reports L chest pain and lower back pain. Patient lying in bed with family member at bedside. Objective - Vital Signs/Intake and Output Vital Signs (last 24 hours): Temp Pulse Resp BP Pulse Ox 98.5 F 114 H 20 124/80 98 11/18/18 12:00 11/18/18 12:00 11/18/18 12:00 11/18/18 12:00 11/18/18 06:00 Intake and Output: 11/18/18 11/18/18 06:59 18:59 Intake Total 600 Output Total 400 Balance 200 - Medications Medications: Current Medications Sodium Chloride (Sodium Chloride 0.45%) 1,000 mls @ 100 mls/hr IV .Q10H [facility] Stop: 11/19/18 12:00 Last Admin: 11/18/18 10:59 Dose: 100 mls/hr Ketorolac Tromethamine (Toradol) 15 mg IVP Q6 PRN PRN Reason: Pain, Mild (1-3) Last Admin: 11/18/18 12:35 Dose: 15 mg Lidocaine (Lidoderm) 1 ea TD DAILY [facility] Last Admin: 11/18/18 10:59 Dose: 1 ea Morphine Sulfate (Morphine) 2 mg IVP Q6 PRN PRN Reason: Pain, severe (8-10) Last Admin: 11/18/18 11:05 Dose: 2 mg Ondansetron HCl (Zofran Inj) 4 mg IVP Q6H PRN PRN Reason: Nausea/Vomiting Polyethylene Glycol (Miralax) 17 gm PO BID [facility] Last Admin: 11/18/18 10:59 Dose: 17 gm - Labs Labs: 11/18/18 05:30 11/18/18 05:30 PT 14.4 SECONDS (9.4-12.5) H 11/18/18 11:30 INR 1.27 11/18/18 11:30 APTT 30.4 Seconds (26.9-38.3) 11/18/18 11:30 - Additional Findings Additional findings: - Constitutional Appears: Chronically Ill Additional comments: Uncomfortable, in pain - Head Exam Head Exam: ATRAUMATIC, NORMAL INSPECTION - Eye Exam Eye Exam: EOMI, Normal appearance - ENT Exam ENT Exam: Normal Oropharynx Additional comments: No oral thrush noted - Respiratory Exam Respiratory Exam: Clear to Auscultation Bilateral. absent: Rales, Rhonchi, Wheezes, Respiratory Distress - Back exam vertebral TTP - Cardiovascular Exam Cardiovascular Exam: Tachycardia, +S1, +S2. absent: Gallop, Rubs, Systolic Murmur - GI/Abdominal Exam GI & Abdominal Exam: Normal Bowel Sounds, Soft. absent: Distended, Guarding, Tenderness - Extremities Exam Extremities exam: Positive for: tenderness - Neurological Exam Neurological exam: Alert, CN II-XII Intact, Oriented x3 - Psychiatric Exam Psychiatric exam: Normal Affect, Normal Mood - Skin Skin Exam: Dry, Intact, Normal Color, Warm Assessment and Plan - Assessment and Plan (Free Text) Assessment: Patient is a 47 year old female with past medical histiry of ovarian cancer with mets to lung and bone (Currently on Chemo- last was 5d prior), chronic back pain, ovarian oophorectomy presents with chief complaint of intractable back pain. Plan: Intractable back pain- likely 2/2 to metastatic cancer - PET Scan (11/03): Pulmonary and osseous metastatic disease. Lytic lesion at L3 vertebral body with cortical disruption concerning for pathologic fracture. - MRI of Lumbar spine: Diffuse bony metastatic disease throughout the spine. No evidence of vertebral compression fracture or epidural invasion. Disc degeneration with foraminal stenosis at L5-S1 - CA 125 elevated at 167 - Toradol 15mg IV Q6 PRN - Morphine 2mf Q6 PRN - Heme-Onc consulted, Dr. John Urban - further recs appreciated - IR consulted, Dr. Mao Lechuga - plan for kyphoplasty and ablation today to L3 - further recs appreciated. - PT/OT evaluation appreciated Sinus tachycardia- r/o Pulmonary Embolism - Improved to 114 bpm - Likely 2/2 pain - EKG: Sinus tachycardia @ 135, no ST changes - LE Venous Dopplers: No DVT - Pain control with Toradol and Morphine - Troponin: <0.01 X 3 Normocytic anemia - Iron 71, TIBC 160, Ferritin 862, B12 571 - Heme-onc consulted, Dr. John Urban - anemia 2/2 chemotherapy and chronic disease from malignancy, will give a dose of Aranesp Folate deficiency - level of 2.6 - RBC folate pending - repletion Hypokalemia, hypomagnesemia - resolved - Continue to monitor Constipation - Miralax daily Prophylaxis - Continue to hold AC for now in light of intervention Patient seen, case reviewed and plan approved by Dr. Nicole. Luis Craft, PGY-1 <Elvia Nicole - Last Filed: 11/18/18 14:05> Objective - Vital Signs/Intake and Output Vital Signs (last 24 hours): Temp Pulse Resp BP Pulse Ox 98.5 F 114 H 20 124/80 98 11/18/18 12:00 11/18/18 12:00 11/18/18 12:00 11/18/18 12:00 11/18/18 06:00 Intake and Output: 11/18/18 11/18/18 06:59 18:59 Intake Total 600 Output Total 400 Balance 200 - Medications Medications: Current Medications Folic Acid (Folic Acid) 1 mg PO DAILY [facility] Sodium Chloride (Sodium Chloride 0.45%) 1,000 mls @ 100 mls/hr IV .Q10H [facility] Stop: 11/19/18 12:00 Last Admin: 11/18/18 10:59 Dose: 100 mls/hr Ketorolac Tromethamine (Toradol) 15 mg IVP Q6 PRN PRN Reason: Pain, Mild (1-3) Last Admin: 11/18/18 12:35 Dose: 15 mg Lidocaine (Lidoderm) 1 ea TD DAILY [facility] Last Admin: 11/18/18 10:59 Dose: 1 ea Morphine Sulfate (Morphine) 2 mg IVP Q6 PRN PRN Reason: Pain, severe (8-10) Last Admin: 11/18/18 11:05 Dose: 2 mg Ondansetron HCl (Zofran Inj) 4 mg IVP Q6H PRN PRN Reason: Nausea/Vomiting Polyethylene Glycol (Miralax) 17 gm PO BID [facility] Last Admin: 11/18/18 10:59 Dose: 17 gm - Labs Labs: 11/18/18 05:30 11/18/18 05:30 PT 14.4 SECONDS (9.4-12.5) H 11/18/18 11:30 INR 1.27 11/18/18 11:30 APTT 30.4 Seconds (26.9-38.3) 11/18/18 11:30 Attending/Attestation - Attestation I have personally seen and examined this patient.: Yes I have fully participated in the care of the patient.: Yes I have reviewed all pertinent clinical information, including history, physical exam and plan: Yes Notes (Text): 11/18/18 14:01 47 year old female with past medical history of metastatic ovarian cancer (to lung and bone) on chemotherapy, history of ovarian oopherectomy, and history of chronic back pain who presented with complaint of intractable back pain. She had a recent outpatient PET scan which showed pulmonary and osseous metastatic disease; lytic lesion at L3 vertebral body with cortical disruption concerning for pathologic fracture. She was referred by pmd for IR evaluation for possible kyphoplasty. MRI lumbar spine reviewed as above. Will follow up with IR recommendations. Continue with toradol prn for pain. Miralax ordered for constipation. PT evaluation is pending. Sinus tachycardia may be secondary to pain but improving. Serial cardiac enzymes were negative. LE dopplers were negative for DVT. Patient is not hypoxic. Patient also found to have normocytic anemia. Anemia workup was reviewed. Will supplement folate. Hematology/oncology is following. Elvia Nicole MD Hospitalist.
[2018-11-18] MEDS ORDERED: Lidocaine PF 2% (5 ml) Inj (For Cardiac Arrhy) ONE (14:34)
[2018-11-18] MEDS ORDERED: Midazolam 2 MG/2 ML VIAL ONE ×3 (15:04→15:30)
[2018-11-18] MEDS ORDERED: Iohexol 350mgl/ml 50 ML ONE (15:09)
--- NOTE | 2018-11-18 16:42 | VASCULAR ---
PROCEDURE: 1. RF ablation lytic L3 metastases 2. L3 kyphoplasty 3. Fluoroscopic L3 vertebral body biopsy HISTORY: Stage IV ovarian carcinoma with bone metastases. Severe refractory lumbar back pain with dominant L3 lytic metastases. Needs RF ablation and kyphoplasty for pain control PHYSICIAN(S): Mao Lechuga MD. TECHNIQUE: he relative risks and indications of the procedure were explained to the patient and informed written consent obtained. The patient was placed prone on the arteriography table and the thoracolumbar spine prepped and draped in the usual sterile fashion. Conscious sedation and monitoring were provided throughout the procedure by a nurse. The L3 vertebral body was carefully localized with fluoroscopy. The skin and soft tissues were anesthetized with 1% Xylocaine. Under direct fluoroscopic guidance, bilateral transpedicular bone needles were placed into the posterior aspect of the L3 vertebral body. Through the right needle, a biopsy of the lateral and superior aspect of the [id number] body was performed. The specimen was sent to histology. The sizing drill was used to select RF probe sizes. On the right, a 10 mm probe was selected and on the left a 7 mm probe was selected. The probes were positioned with fluoroscopy. RF ablation was performed, 5.5 minutes on the left and 6.5 minutes on the right. No issues were encountered during ablation. The ablation needles were removed. Next bilateral 15mm bone balloons were placed in the superior and anterior portion of the L3 vertebral body. They were inflated to approximately 3 cc apiece with dilute contrast. The balloons were removed and 5.0 cc of barium-impregnated PMMA cement instilled into the L3 vertebral body. No extravasation was seen. The bone needles were removed. The patient tolerated the procedure well. IMPRESSION: 1. RF ablation of lytic L3 bone metastases as described above 2. L3 kyphoplasty 3. Fluoroscopic L3 vertebral body biopsy
[2018-11-18] MEDS ORDERED: HYDROmorphone 2 mg/ml ISec IVP STA (16:44)
[2018-11-18] MEDS ORDERED: HYDROmorphone 2 mg/ml ISec IM PRN (16:45)
[2018-11-18] MEDS ORDERED: HYDROmorphone 2 mg/ml ISec ONE (16:51)
--- NOTE | 2018-11-18 19:12 | CON ---
DATE OF CONSULTATION: 11/18/2018 TIME: 09:00 a.m. CHIEF COMPLAINT/HISTORY OF PRESENT ILLNESS: This is an unfortunate 47-year-old female with widely metastatic ovarian CA. I was contacted by Dr. Urban concerning her refractory lumbar back pain. She has diffuse bone metastasis. However, she is having severe lower lumbar pain, which is not responding to analgesics and conservative measures. Ms. Shields had an lumbar MRI on admission. This revealed multilevel metastatic disease of the lumbar spine. There is a predominant lytic lesion at the L3 vertebral body on her PET scan and the MRI. The lesion anatomically looks amenable to RF ablation and kyphoplasty. I explained the risks, benefits and alternatives to the patient. She understands and wants to proceed for some relief of her lumbar pain. Mao Lechuga MD [facility]
--- NOTE | 2018-11-18 19:49 | CP.PCM.PN ---
Subjective - Date & Time of Evaluation Date of Evaluation: 11/18/18 Time of Evaluation: 18:00 - Subjective Subjective: S/p RFA ablation and kyphoplasty of L3 by IR Objective - Vital Signs/Intake and Output Vital Signs (last 24 hours): Temp Pulse Resp BP Pulse Ox 98 F 112 H 12 149/95 H 100 11/18/18 17:09 11/18/18 17:09 11/18/18 17:09 11/18/18 17:09 11/18/18 17:09 - Medications Medications: Current Medications Acetaminophen (Tylenol 325mg Tab) 650 mg PO Q4 PRN PRN Reason: Pain, Mild (1-3) Folic Acid (Folic Acid) 1 mg PO DAILY [facility] Last Admin: 11/18/18 18:08 Dose: 1 mg Hydromorphone HCl (Dilaudid) 2 mg IM Q4H PRN PRN Reason: Pain, severe (8-10) Sodium Chloride (Sodium Chloride 0.45%) 1,000 mls @ 100 mls/hr IV .Q10H [facility] Stop: 11/19/18 12:00 Last Admin: 11/18/18 10:59 Dose: 100 mls/hr Ketorolac Tromethamine (Toradol) 15 mg IVP Q6 PRN PRN Reason: Pain, Mild (1-3) Last Admin: 11/18/18 19:33 Dose: 15 mg Lidocaine (Lidoderm) 1 ea TD DAILY [facility] Last Admin: 11/18/18 10:59 Dose: 1 ea Morphine Sulfate (Morphine) 2 mg IVP Q6 PRN PRN Reason: Pain, severe (8-10) Last Admin: 11/18/18 11:05 Dose: 2 mg Ondansetron HCl (Zofran Inj) 4 mg IVP Q6H PRN PRN Reason: Nausea/Vomiting Polyethylene Glycol (Miralax) 17 gm PO BID [facility] Last Admin: 11/18/18 18:08 Dose: 17 gm - Labs Labs: 11/18/18 05:30 11/18/18 05:30 PT 14.4 SECONDS (9.4-12.5) H 11/18/18 11:30 INR 1.27 11/18/18 11:30 APTT 30.4 Seconds (26.9-38.3) 11/18/18 11:30 - Head Exam Head Exam: ATRAUMATIC - Eye Exam Eye Exam: Normal appearance - ENT Exam ENT Exam: Mucous Membranes Dry - Respiratory Exam Respiratory Exam: NORMAL BREATHING PATTERN - Cardiovascular Exam Cardiovascular Exam: +S1, +S2 - GI/Abdominal Exam GI & Abdominal Exam: Normal Bowel Sounds Assessment and Plan (1) Back pain Assessment & Plan: s/p RFA and kyphoplasty to L3 pain meds with bowel regimen Status: Acute (2) Anemia Assessment & Plan: chronic diseas from malignancy anemia of chemotherapy Status: Acute (3) Ovarian cancer Assessment & Plan: stage IV outpatient treatment Status: Acute
[2018-11-19] MEDS: Sodium Chloride 0.45% 1,000 ML IV SCH ×2 (01:20→10:47)
[2018-11-19] MEDS: Morphine 2 mg/ml ISec IVP PRN ×3 (04:19→16:21)
[2018-11-19 06:40] LABS: HEMOGLOBIN 7.3 g/dL (12.0-16.0); LYMPH # 0.4 (1.2-3.4); LYMPH % 11.9 % (22.0-35.0); MEAN CELL VOLUME 85.5 fl (80.0-105.0); MEAN CORPUSCULAR HEMOGLOBIN 26.5 pg (25.0-35.0); MEAN CORPUSCULAR HGB CONC 31.1 g/dl (31.0-37.0); MEAN PLATELET VOLUME 9.6 fl (7.0-11.0); MONO # 0.1 (0.1-0.6); MONO % 1.6 % (1.0-6.0); RBC 2.75 10^6/uL (3.5-6.1); RED CELL DISTRIBUTION WIDTH 21.9 % (11.5-14.5); WHITE BLOOD COUNT 3.1 10^3/uL (4.5-11.0)
[2018-11-19 07:13] LABS: ALBUMIN 2.9 g/dL (3.0-4.8); ALT/SGPT 37 U/L (7-56); AST/SGOT 97 U/L (14-36); BLOOD UREA NITROGEN 6 mg/dL (7-21); GFR NON-AFRICAN AMERICAN > 60
[2018-11-19] MEDS ORDERED: Magnesium Citrate Oral SOL (300 ml) PO ONE (08:18)
[2018-11-19] MEDS ORDERED: Magnesium Oxide 400 mg Tab UD PO STA (09:40)
[2018-11-19] MEDS: Potassium & Sodium Phosphate PO SCH ×2 (10:50→18:08)
[2018-11-19] MEDS: Lidocaine 5% Patch TD SCH (10:50)
[2018-11-19] MEDS: Morphine 30 mg SR Tab PO SCH ×4 (11:56→22:52)
[2018-11-19] MEDS: POLYETHYLENE GLYCOL 3350 17 GM/Dose PACKET PO SCH ×3 (12:15→19:45)
--- NOTE | 2018-11-19 13:35 | CP.PCM.CON ---
History of Present Illness - History of Present Illness History of Present Illness: Palliative consult requested by Dr Terrence Nicole Reason : Advance care planning This is a 47 year old female with history of ovarian cancer with mets to lung and bone chronic back pain who present with chronic back pain. Patient reported that she saw her oncologist who referred her to ED further evaluation. She is complained of sharp lower back pain that she 10/10 which hindered her form walking. An outpatient PET CT scan was suggestive of pathologic vertebral body fracture involving the L-spine. She is also complained of pain on her right upper chest. Patient is currently on chemotherapy( Doxil/Avastin). She is complained of constipation. She denied any fevers, chills, headache, dizziness, shortness of breath, dyspnea on exertion, cough, diaphoresis, abdominal pain, diarrhea, neck pain, or urinary symptoms. Chest x ray: 4.8 cm mass in AMBER, 12 mm nodule in right lung base Lumbar Spine x ray: Diffuse bony metastatic disease throughout the spine, no evidence of vertebral compression fracture or epidurla invasion. Disc degeneration with stenosis L5-S1. Duplex LE: negative for DVT PMHx: Ovarian cancer whit metastatic disease to lung and bone. Currently on salvage chemotherapy, chronic back pain PSHx: BSHA, Social History: Never smoker, no alcohol, tobacco, or drug use. Family History: Denies Advance Care Planning:The patient does not have an Advance Directive Past Patient History - Infectious Disease Hx of Infectious Diseases: None - Tetanus Immunizations Tetanus Immunization: Unknown - Past Medical History & Family History Past Medical History?: Yes - Past Social History Smoking Status: Never Smoked - CARDIAC Hx Cardiac Disorders: No - PULMONARY Hx Respiratory Disorders: No - NEUROLOGICAL Hx Neurological Disorder: No - HEENT Hx HEENT Problems: No - RENAL Hx Chronic Kidney Disease: No - ENDOCRINE/METABOLIC Hx Endocrine Disorders: No - HEMATOLOGICAL/ONCOLOGICAL Hx Blood Disorders: No Hx Blood Transfusion Reaction: No - INTEGUMENTARY Hx Dermatological Problems: No - MUSCULOSKELETAL/RHEUMATOLOGICAL Hx Musculoskeletal Disorders: No - GASTROINTESTINAL Hx Gastrointestinal Disorders: No - GENITOURINARY/GYNECOLOGICAL Hx Genitourinary Disorders: Yes Hx Ovarian Cancer: Yes - PSYCHIATRIC Hx Emotional Abuse: No Hx Physical Abuse: No Hx Substance Use: No - SURGICAL HISTORY Other/Comment: ROBOTIC HYSTERECTOMY;OVARIAN CYSTECTOMY - ANESTHESIA Hx Anesthesia: Yes Hx Anesthesia Reactions: No Hx Malignant Hyperthermia: No Meds Allergies/Adverse Reactions: Allergies Allergy/AdvReac Type Severity Reaction Status Date / Time No Known Allergies Allergy Verified 06/26/18 11:55 - Medications Medications: Current Medications Acetaminophen (Tylenol 325mg Tab) 650 mg PO Q4 PRN PRN Reason: Pain, Mild (1-3) Folic Acid (Folic Acid) 1 mg PO DAILY [facility] Last Admin: 11/19/18 10:50 Dose: 1 mg Ketorolac Tromethamine (Toradol) 15 mg IVP Q6 PRN PRN Reason: Pain, Mild (1-3) Last Admin: 11/19/18 10:52 Dose: 15 mg Lidocaine (Lidoderm) 1 ea TD DAILY [facility] Last Admin: 11/19/18 10:50 Dose: 1 ea Morphine Sulfate (Morphine) 2 mg IVP Q6 PRN PRN Reason: Pain, severe (8-10) Last Admin: 11/19/18 08:57 Dose: 2 mg Morphine Sulfate (Morphine Extended Release Tab) 30 mg PO Q12 [facility] Last Admin: 11/19/18 11:58 Dose: Not Given Ondansetron HCl (Zofran Inj) 4 mg IVP Q6H PRN PRN Reason: Nausea/Vomiting Polyethylene Glycol (Miralax) 17 gm PO BID [facility] Last Admin: 11/19/18 12:15 Dose: Not Given Potassium Phos/Sodium Phos (Neutra-Phos) 1 pkt PO ACTID [facility] Stop: 11/19/18 16:31 Last Admin: 11/19/18 10:50 Dose: 1 pkt Results - Vital Signs Recent Vital Signs: Last Vital Signs Temp 100.2 F H 11/19/18 12:00 Pulse 99 H 11/19/18 12:00 Resp 20 11/19/18 12:00 BP 141/87 11/19/18 12:00 Pulse Ox 99 11/19/18 06:00 - Labs Result Diagrams: 11/19/18 06:00 11/19/18 06:00 Labs: Laboratory Results - last 24 hr 11/19/18 11/19/18 06:00 06:00 WBC 3.1 L D RBC 2.75 L Hgb 7.3 L Hct 23.5 L MCV 85.5 MCH 26.5 MCHC 31.1 RDW 21.9 H Plt Count 148 MPV 9.6 Neut % (Auto) 86.5 H Lymph % (Auto) 11.9 L Frederick % (Auto) 1.6 Eos % (Auto) 0.0 L Baso % (Auto) 0.0 Lymph # (Auto) 0.4 L Frederick # (Auto) 0.1 Eos # (Auto) 0.0 Baso # (Auto) 0.00 Absolute Neuts (auto) 2.68 Sodium 133 Potassium 3.6 Chloride 98 Carbon Dioxide 26 Anion Gap 12 BUN 6 L Creatinine 0.3 L Est GFR ( Amer) > 60 Est GFR (Non-Af Amer) > 60 Random Glucose 94 Calcium 8.0 L Phosphorus 1.9 L Magnesium 1.5 L Total Bilirubin 0.2 AST 97 H D ALT 37 Alkaline Phosphatase 112 Total Protein 5.9 Albumin 2.9 L Globulin 3.0 Albumin/Globulin Ratio 1.0 L Assessment & Plan - Assessment and Plan (Free Text) Assessment: 47 year old female with history of ovarian cancer who is admitted with back pain secondary to metastatic disease. She is s/p RFA ablation and kyphoplasty of L3.She is febrile, workup pending The patient is alert,oriented. She complains of back pain. She is aware of her diagnosis. She indicated that she is being followed by Dr Urban and intends to continue treatment. She a does not have an Advanced Directive. Resuscitation wishes discussed. Ramifications of CPR/intubation explained. The patient did not voice her wishes, but is thinking about our conversation. She states that her mother is her health care decision maker. She is anxious to be discharged home. It was explained that she has a fever and would liley stay though the night for further evaluation/observation Time spent in goals of care and advance care planning, 20 minutes Plan: Goals of care and advance care planning Back pain; s/p kyphoplasty. Continue Morphine 30 mg ER, Morphine IVP for breakthrough, Bowel regimen> Mrilax Fever: Blood /urine cultures pending Ovarian cancer; Will follow up with oncology as out patient (
--- NOTE | 2018-11-19 14:06 | RAD ---
Date of service: 11/19/2018 HISTORY: fever, r/o PNA COMPARISON: 11/17/2018 TECHNIQUE: 1 view obtained. FINDINGS: LUNGS: No change in the left upper lobe mass. Right lower lobe nodule. PLEURA: No significant pleural effusion identified, no pneumothorax apparent. CARDIOVASCULAR: No aortic atherosclerotic calcification present. Normal cardiac size. No pulmonary vascular congestion. OSSEOUS STRUCTURES: No significant abnormalities. VISUALIZED UPPER ABDOMEN: Normal. OTHER FINDINGS: None. IMPRESSION: No evidence of pneumonia.
--- NOTE | 2018-11-19 16:29 | CP.PCM.PN ---
<Genaro Waller - Last Filed: 11/19/18 16:20> Subjective - Date & Time of Evaluation Date of Evaluation: 11/19/18 Time of Evaluation: 16:20 - Subjective Subjective: PGY-1 Progress Note for Hospitalist Service Patient seen and evaluated at bedside. No acute events reported overnight. Patient reports lower back pain. Patient lying in bed with mother at bedside. Patient had a fever of 100.8 today. Objective - Vital Signs/Intake and Output Vital Signs (last 24 hours): Temp Pulse Resp BP Pulse Ox 100.2 F H 130 H 20 141/87 99 11/19/18 12:00 11/19/18 14:00 11/19/18 12:00 11/19/18 12:00 11/19/18 06:00 Intake and Output: 11/19/18 11/19/18 06:59 18:59 Intake Total 360 Output Total 0 Balance 360 - Medications Medications: Current Medications Acetaminophen (Tylenol 325mg Tab) 650 mg PO Q4 PRN PRN Reason: Pain, Mild (1-3) Folic Acid (Folic Acid) 1 mg PO DAILY [facility] Last Admin: 11/19/18 10:50 Dose: 1 mg Ketorolac Tromethamine (Toradol) 15 mg IVP Q6 PRN PRN Reason: Pain, Mild (1-3) Last Admin: 11/19/18 10:52 Dose: 15 mg Lidocaine (Lidoderm) 1 ea TD DAILY [facility] Last Admin: 11/19/18 10:50 Dose: 1 ea Morphine Sulfate (Morphine) 2 mg IVP Q6 PRN PRN Reason: Pain, severe (8-10) Last Admin: 11/19/18 08:57 Dose: 2 mg Morphine Sulfate (Morphine Extended Release Tab) 30 mg PO Q12 [facility] Last Admin: 11/19/18 13:46 Dose: 30 mg Ondansetron HCl (Zofran Inj) 4 mg IVP Q6H PRN PRN Reason: Nausea/Vomiting Polyethylene Glycol (Miralax) 17 gm PO BID [facility] Last Admin: 11/19/18 12:15 Dose: Not Given Potassium Phos/Sodium Phos (Neutra-Phos) 1 pkt PO ACTID [facility] Stop: 11/19/18 16:31 Last Admin: 11/19/18 10:50 Dose: 1 pkt - Labs Labs: 11/19/18 06:00 11/19/18 06:00 PT 14.4 SECONDS (9.4-12.5) H 11/18/18 11:30 INR 1.27 11/18/18 11:30 APTT 30.4 Seconds (26.9-38.3) 11/18/18 11:30 - Additional Findings Additional findings: - Constitutional Appears: Chronically Ill Additional comments: Uncomfortable, in pain - Head Exam Head Exam: ATRAUMATIC, NORMAL INSPECTION - Eye Exam Eye Exam: EOMI, Normal appearance - ENT Exam ENT Exam: Normal Oropharynx Additional comments: No oral thrush noted - Respiratory Exam Respiratory Exam: Clear to Auscultation Bilateral. absent: Rales, Rhonchi, Wheezes, Respiratory Distress - Back exam vertebral TTP - Cardiovascular Exam Cardiovascular Exam: Tachycardia, +S1, +S2. absent: Gallop, Rubs, Systolic Murmur - GI/Abdominal Exam GI & Abdominal Exam: Normal Bowel Sounds, Soft. 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 Plan: Intractable back pain- likely 2/2 to metastatic cancer - PET Scan (11/03): Pulmonary and osseous metastatic disease. Lytic lesion at L3 vertebral body with cortical disruption concerning for pathologic fracture. - MRI of Lumbar spine: Diffuse bony metastatic disease throughout the spine. No evidence of vertebral compression fracture or epidural invasion. Disc degeneration with foraminal stenosis at L5-S1 - Patient is s/p RFA of L3 and kyphoplasty of L3 on 11/18 - CA 125 elevated at 167 - Toradol 15mg IV Q6 PRN - Morphine 2mg Q6 PRN - Lidoderm patch - Heme-Onc consulted, Dr. John Urban - - IR consulted, Dr. Mao Lechuga - PT/OT evaluation appreciated Sinus tachycardia- r/o Pulmonary Embolism - Likely 2/2 pain - EKG: Sinus tachycardia @ 135, no ST changes - LE Venous Dopplers: No DVT - Pain control with Toradol, Lidoderm, and Morphine - Troponin: <0.01 X 3 Fever - Repeat blood culture, UA, Urine culture - Will start empiric antibiotics if UA is positive - CXR: no acute disease - Continue to monitor Normocytic anemia - Iron 71, TIBC 160, Ferritin 862, B12 571 - Heme-onc consulted, Dr. John Urban - anemia 2/2 chemotherapy and chronic disease from malignancy, will give a dose of Aranesp Folate deficiency - level of 2.6 - repletion Hypokalemia, hypomagnesemia - resolved - Continue to monitor Constipation - Miralax daily Patient seen and case discussed with attending, . Genaro Waller, PGY-1 <Elvia Nicole - Last Filed: 11/19/18 17:29> Objective - Vital Signs/Intake and Output Vital Signs (last 24 hours): Temp Pulse Resp BP Pulse Ox 100.2 F H 130 H 20 141/87 99 11/19/18 12:00 11/19/18 14:00 11/19/18 12:00 11/19/18 12:00 11/19/18 06:00 Intake and Output: 11/19/18 11/19/18 06:59 18:59 Intake Total 360 Output Total 0 Balance 360 - Medications Medications: Current Medications Acetaminophen (Tylenol 325mg Tab) 650 mg PO Q4 PRN PRN Reason: Pain, Mild (1-3) Folic Acid (Folic Acid) 1 mg PO DAILY [facility] Last Admin: 11/19/18 10:50 Dose: 1 mg Ketorolac Tromethamine (Toradol) 15 mg IVP Q6 PRN PRN Reason: Pain, Mild (1-3) Last Admin: 11/19/18 10:52 Dose: 15 mg Lidocaine (Lidoderm) 1 ea TD DAILY [facility] Last Admin: 11/19/18 10:50 Dose: 1 ea Morphine Sulfate (Morphine) 2 mg IVP Q6 PRN PRN Reason: Pain, severe (8-10) Last Admin: 11/19/18 16:21 Dose: 2 mg Morphine Sulfate (Morphine Extended Release Tab) 30 mg PO Q12 [facility] Last Admin: 11/19/18 13:46 Dose: 30 mg Ondansetron HCl (Zofran Inj) 4 mg IVP Q6H PRN PRN Reason: Nausea/Vomiting Polyethylene Glycol (Miralax) 17 gm PO BID [facility] Last Admin: 11/19/18 12:15 Dose: Not Given - Labs Labs: 11/19/18 06:00 11/19/18 06:00 PT 14.4 SECONDS (9.4-12.5) H 11/18/18 11:30 INR 1.27 11/18/18 11:30 APTT 30.4 Seconds (26.9-38.3) 11/18/18 11:30 Attending/Attestation - Attestation I have personally seen and examined this patient.: Yes I have fully participated in the care of the patient.: Yes I have reviewed all pertinent clinical information, including history, physical exam and plan: Yes Notes (Text): 11/19/18 17:25 47 year old female with past medical history of metastatic ovarian cancer (to lung and bone) on chemotherapy, history of ovarian oopherectomy, and history of chronic back pain who presented with complaint of intractable back pain. She had a recent outpatient PET scan which showed pulmonary and osseous metastatic disease; lytic lesion at L3 vertebral body with cortical disruption concerning for pathologic fracture. IR evaluation was appreciated and patient is s/p kyphoplasty and RFA. She is on morphine and lidoderm patch. Extended release medication added today. PT evaluation was appreciated who recommended JASMINA, however patient is refusing and requesting to be discharged home. Sinus tachycardia may be secondary to pain. Serial cardiac enzymes were negative. LE dopplers were negative for DVT. Patient is not hypoxic. Patient also found to have normocytic anemia. Anemia workup was reviewed. Continue with folic acid. Was also given aranesp. Hematology/oncology is following. Today patient noted to have fever 100.8. Will repeat septic workup including CXR, UA/UCx, BCx. Consider antibiotics if UA is suggestive for UTI. She is on miralax for constipation. Refused magnesium citrate. Will replete and repeat lytes. Elvia Nicole MD Hospitalist.
[2018-11-19] MEDS ORDERED: Oxycodone/Acetaminophen 5/325 mg Tab PO PRN (17:32)
[2018-11-19] MEDS ORDERED: oxyCODONE 5 mg Immediate Release Tab PO SCH (18:00)
[2018-11-19] MEDS ORDERED: Morphine 2 mg/ml ISec IVP ONE (21:09)
[2018-11-20] MEDS ORDERED: Morphine 2 mg/ml ISec IVP ONE (03:29)
[2018-11-20 07:11] LABS: HEMOGLOBIN 7.2 g/dL (12.0-16.0); LYMPH # 0.3 (1.2-3.4); LYMPH % 14.6 % (22.0-35.0); MEAN CELL VOLUME 85.7 fl (80.0-105.0); MEAN CORPUSCULAR HEMOGLOBIN 26.4 pg (25.0-35.0); MEAN CORPUSCULAR HGB CONC 30.8 g/dl (31.0-37.0); MEAN PLATELET VOLUME 8.5 fl (7.0-11.0); MONO # 0.1 (0.1-0.6); MONO % 5.7 % (1.0-6.0); PLATELET COUNT 82 10^3/uL (120.0-450.0); RBC 2.73 10^6/uL (3.5-6.1); RED CELL DISTRIBUTION WIDTH 21.7 % (11.5-14.5)
[2018-11-20 07:21] LABS: ALT/SGPT 32 U/L (7-56); AST/SGOT 73 U/L (14-36); BLOOD UREA NITROGEN 10 mg/dL (7-21); CALCIUM 7.9 mg/dL (8.4-10.5); GFR NON-AFRICAN AMERICAN > 60
[2018-11-20 07:24] LABS: WHITE BLOOD COUNT 1.9 10^3/uL (4.5-11.0)
[2018-11-20] MEDS ORDERED: Potassium Phosphate 15 MMOLE in Sodium Chloride 0.9% 250 ML IVPB ONE (07:36)
[2018-11-20] MEDS: Potassium & Sodium Phosphate PO SCH ×3 (10:00→19:00)
[2018-11-20] MEDS ORDERED: cefTRIAXone 1 gm 1 GM/100 ML BAG IVPB SCH (10:00)
--- NOTE | 2018-11-20 10:29 | CP.PCM.PN ---
<Luis Craft - Last Filed: 11/20/18 12:20> Subjective - Date & Time of Evaluation Date of Evaluation: 11/20/18 Time of Evaluation: 08:00 - Subjective Subjective: Luis Craft PGY-1 Progress Note for Hospitalist Service Patient seen and evaluated at bedside. Febrile to 102.1 overnight. Sitting in bed comfortably with family member at bedside. Patient can speak in full sentences without becoming breathless. Reports pain is currently controlled. No bowel movements at this time. Objective - Vital Signs/Intake and Output Vital Signs (last 24 hours): Temp Pulse Resp BP Pulse Ox 102.1 F H 135 H 20 152/80 H 99 11/20/18 06:28 11/20/18 06:00 11/20/18 06:00 11/20/18 06:00 11/20/18 06:00 Intake and Output: 11/20/18 11/20/18 06:59 18:59 Intake Total 980 Output Total 2200 Balance -1220 - Medications Medications: Current Medications Acetaminophen (Tylenol 325mg Tab) 650 mg PO Q4 PRN PRN Reason: Pain, Mild (1-3) Last Admin: 11/20/18 06:26 Dose: 650 mg Folic Acid (Folic Acid) 1 mg PO DAILY [facility] Last Admin: 11/19/18 10:50 Dose: 1 mg Vancomycin HCl (Vancomycin 1gm) 1 gm in 250 mls @ 167 mls/hr IVPB DAILY [facility]; Protocol Cefepime HCl (Maxipime 1gm) 1 gm in 100 mls @ 100 mls/hr IVPB Q12 [facility]; Protocol Potassium Phosphate 15 mmole/ (Sodium Chloride) 255 mls @ 42.5 mls/hr IVPB ONCE ONE Stop: 11/20/18 13:35 Ketorolac Tromethamine (Toradol) 15 mg IVP Q6 PRN PRN Reason: Pain, Mild (1-3) Last Admin: 11/20/18 06:13 Dose: 15 mg Lidocaine (Lidoderm) 1 ea TD DAILY [facility] Last Admin: 11/19/18 10:50 Dose: 1 ea Morphine Sulfate (Morphine Extended Release Tab) 30 mg PO Q12 [facility] Last Admin: 11/19/18 22:52 Dose: 30 mg Ondansetron HCl (Zofran Inj) 4 mg IVP Q6H PRN PRN Reason: Nausea/Vomiting Oxycodone HCl (Oxycodone Immediate Release Tab) 5 mg PO Q4 PRN PRN Reason: Pain, severe (8-10) Polyethylene Glycol (Miralax) 17 gm PO BID [facility] Last Admin: 11/19/18 19:45 Dose: Not Given Potassium Phos/Sodium Phos (Neutra-Phos) 1 pkt PO TID [facility] Stop: 11/20/18 18:01 - Labs Labs: 11/20/18 06:00 11/20/18 06:00 PT 14.4 SECONDS (9.4-12.5) H 11/18/18 11:30 INR 1.27 11/18/18 11:30 APTT 30.4 Seconds (26.9-38.3) 11/18/18 11:30 - Additional Findings Additional findings: - Constitutional Appears: Chronically Ill Additional comments: Comfortable, pain currently controlled - Head Exam Head Exam: ATRAUMATIC, NORMAL INSPECTION - Eye Exam Eye Exam: EOMI, Normal appearance - ENT Exam ENT Exam: Normal Oropharynx Additional comments: Cold sores evident in oral cavity - Respiratory Exam Respiratory Exam: Clear to Auscultation Bilateral. absent: Rales, Rhonchi, Wheezes, Respiratory Distress - Back exam vertebral TTP - Cardiovascular Exam Cardiovascular Exam: Tachycardia, +S1, +S2. absent: Gallop, Rubs, Systolic Murmur - GI/Abdominal Exam GI & Abdominal Exam: Normal Bowel Sounds, Soft. absent: Distended, Guarding, Tenderness - Extremities Exam Extremities exam: Positive for: tenderness - Neurological Exam Neurological exam: Alert, CN II-XII Intact, Oriented x3 - Psychiatric Exam Psychiatric exam: Normal Affect, Normal Mood - Skin Skin Exam: Dry, Intact, Normal Color, Warm Assessment and Plan - Assessment and Plan (Free Text) Assessment: Patient is a 47 year old female with past medical history of Stage IV ovarian cancer with mets to lung and bone (Currently on Chemo- last was 5d prior to admission), chronic back pain, ovarian oophorectomy presents with chief complaint of intractable back pain. Plan: SIRS with Fever of unknown origin - Tachy, hypertensive - may be secondary to post-op vs underlying infection - F/U repeat blood culture, UA, Urine culture - Begin NS @ 75 cc/hr - Vanc and Cefepime coverage - CXR: no acute disease - Continue to monitor Neutropenia - ANC >1.5 so no need for precautions at this time - Continue to monitor Sinus tachycardia - Likely 2/2 pain vs fever - EKG: Sinus tachycardia @ 135, no ST changes - LE Venous Dopplers: No DVT - Pain control with Toradol, Lidoderm, and Oxycodone - Troponin: <0.01 X 3 Normocytic anemia - Hgb slight drop to 7.2, will consider transfusion per Dr. Urban recs - F/U peripheral blood smear - Iron 71, TIBC 160, Ferritin 862, B12 571 - Heme-onc consulted, Dr. John Urban - anemia 2/2 chemotherapy and chronic disease from malignancy, s/p dose of Aranesp Intractable back pain- likely 2/2 to metastatic cancer - PET Scan (11/03): Pulmonary and osseous metastatic disease. Lytic lesion at L3 vertebral body with cortical disruption concerning for pathologic fracture. - MRI of Lumbar spine: Diffuse bony metastatic disease throughout the spine. No evidence of vertebral compression fracture or epidural invasion. Disc degeneration with foraminal stenosis at L5-S1 - Patient is s/p RFA of L3 and kyphoplasty of L3 on 11/18 - CA 125 elevated at 167 - Toradol 15mg IV Q6 PRN, Morphine 30 mg Q12 extended release - Oxy 5 q 4 PRN, Lidoderm patch - Zofran 4 mg q6h for nausea - Heme-Onc consulted, Dr. John Urban - IR consulted, Dr. Mao Lechuga - PT/OT evaluation appreciated Folate deficiency - Level of 2.6 - Repletion daily - F/u folate RBC level Hypokalemia, hypophosphatemia - repleted - F/U repeat BMP and Phos - Continue to monitor Constipation - Monitor for BM - Miralax increased to BID, Relistor added DVT Ppx: Lovenox, SCDs Patient seen, case reviewed and plan approved by Dr. Nicole. Luis Craft, PGY-1 <Elvia Nicole - Last Filed: 11/20/18 12:34> Objective - Vital Signs/Intake and Output Vital Signs (last 24 hours): Temp Pulse Resp BP Pulse Ox 102.1 F H 135 H 20 152/80 H 99 11/20/18 06:28 11/20/18 06:00 11/20/18 06:00 11/20/18 06:00 11/20/18 06:00 Intake and Output: 11/20/18 11/20/18 06:59 18:59 Intake Total 980 Output Total 2200 Balance -1220 - Medications Medications: Current Medications Acetaminophen (Tylenol 325mg Tab) 650 mg PO Q4 PRN PRN Reason: Pain, Mild (1-3) Last Admin: 11/20/18 06:26 Dose: 650 mg Enoxaparin Sodium (Lovenox) 40 mg SC DAILY [facility]; Protocol Folic Acid (Folic Acid) 1 mg PO DAILY [facility] Last Admin: 11/20/18 12:06 Dose: 1 mg Vancomycin HCl (Vancomycin 1gm) 1 gm in 250 mls @ 167 mls/hr IVPB DAILY [facility]; Protocol Cefepime HCl (Maxipime 1gm) 1 gm in 100 mls @ 100 mls/hr IVPB Q12 [facility]; Protocol Last Admin: 11/20/18 12:08 Dose: 100 mls/hr Potassium Phosphate 15 mmole/ (Sodium Chloride) 255 mls @ 42.5 mls/hr IVPB ONCE ONE Stop: 11/20/18 13:35 Sodium Chloride (Sodium Chloride 0.9%) 1,000 mls @ 75 mls/hr IV .[id number] [facility] Stop: 11/21/18 01:04 Ketorolac Tromethamine (Toradol) 15 mg IVP Q6 PRN PRN Reason: Pain, Mild (1-3) Last Admin: 11/20/18 12:00 Dose: 15 mg Lidocaine (Lidoderm) 1 ea TD DAILY [facility] Last Admin: 11/20/18 12:10 Dose: 1 ea Morphine Sulfate (Morphine Extended Release Tab) 30 mg PO Q12 [facility] Last Admin: 11/20/18 12:06 Dose: 30 mg Ondansetron HCl (Zofran Inj) 4 mg IVP Q6H PRN PRN Reason: Nausea/Vomiting Oxycodone HCl (Oxycodone Immediate Release Tab) 5 mg PO Q4 PRN PRN Reason: Pain, severe (8-10) Polyethylene Glycol (Miralax) 17 gm PO BID [facility] Last Admin: 11/20/18 12:10 Dose: 17 gm Potassium Phos/Sodium Phos (Neutra-Phos) 1 pkt PO TID [facility] Stop: 11/20/18 18:01 - Labs Labs: 11/20/18 06:00 11/20/18 06:00 PT 14.4 SECONDS (9.4-12.5) H 11/18/18 11:30 INR 1.27 11/18/18 11:30 APTT 30.4 Seconds (26.9-38.3) 11/18/18 11:30 Attending/Attestation - Attestation I have personally seen and examined this patient.: Yes I have fully participated in the care of the patient.: Yes I have reviewed all pertinent clinical information, including history, physical exam and plan: Yes Notes (Text): 11/20/18 12:29 47 year old female with past medical history of metastatic ovarian cancer (to lung and bone) on chemotherapy, history of ovarian oopherectomy, and history of chronic back pain who presented with complaint of intractable back pain. She had a recent outpatient PET scan which showed pulmonary and osseous metastatic disease; lytic lesion at L3 vertebral body with cortical disruption concerning for pathologic fracture. MRI spine also showed metastatic disease to bone. She was seen by IR and is s/p kyphoplasty and RFA. She is on toradol, morphine ER and lidoderm patch. This morning she reports some improvement of pain. Denies any chest pain or shortness of breath today. Sinus tachycardia may be secondary to pain vs fever/infection. LE dopplers and serial cardiac enzymes were negative. Patient has fever 102 and pancytopenia noted today. Started on broad spectrum antibiotics (vanco/cefepime). CXR negative. Awaiting repeat UA/UCx/BCx. ID evaluation is requested. She is on miralax for constipation. Added relistor as per heme. Continue with folic acid. S/p aranesp. Will replete and repeat lytes. PT evaluation was appreciated who recommended JASMINA, however patient is refusing and requesting to be discharged home. Elvia Nicole MD Hospitalist.
[2018-11-20] MEDS ORDERED: Sodium Chloride 0.9% 1,000 ML IV SCH (11:45)
[2018-11-20] MEDS: Morphine 30 mg SR Tab PO SCH ×2 (12:06→21:31)
[2018-11-20] MEDS: Cefepime 1gm in NS 100ml 1 GM/100 ML BAG IVPB SCH ×2 (12:08→23:04)
[2018-11-20] MEDS: Lidocaine 5% Patch TD SCH (12:10)
[2018-11-20] MEDS: POLYETHYLENE GLYCOL 3350 17 GM/Dose PACKET PO SCH ×2 (12:10→18:30)
[2018-11-20] MEDS ORDERED: Potassium Chloride 20 mEq ER Tab PO ONE (12:37)
[2018-11-20 13:51] LABS: PH,URINE 6.5 (4.7-8.0); URINE BILIRUBIN NEGATIVE (NEGATIVE); URINE BLOOD TRACE-INTACT (NEGATIVE); URINE GLUCOSE (UA) NEGATIVE (NEGATIVE); URINE LEUKOCYTE ESTERASE MODERATE Leu/uL (NEGATIVE); URINE PROTEIN NEGATIVE mg/dL (<30 mg/dL)
[2018-11-20 13:52] LABS: URINE APPEARANCE CLEAR (CLEAR); URINE COLOR DARK YELLOW (YELLOW)
[2018-11-20 13:56] LABS: URINE RBC 0 - 2 /hpf (0-2)
[2018-11-20] MEDS: Enoxaparin 40 mg Syringe SC SCH (14:30)
[2018-11-20 14:37] LABS: BLOOD UREA NITROGEN 14 mg/dL (7-21); GFR NON-AFRICAN AMERICAN > 60
--- NOTE | 2018-11-20 14:46 | CP.PCM.CON ---
History of Present Illness - History of Present Illness History of Present Illness: Infectious Disease Consultation: November 20, 2018 47 yo female with Ovarian cancer with mets to lung and bone presented with back pain. The patient has a history of chronic back pain. ID called into case as the patient became Leukopenic and developed fevers up to 102.1 F this morning. Patient received Chemotherapy 5 days prior to this hospitalization. Cultures negative to date. Noted outpatient PET CT scan suggested pathologic vertebral body fracture involving L-spine. Kyphoplasty was performed on 11/19/2018. PMHx: Ovarian cancer with metastatic disease to lungs and bone, chronic back pain. PSHx: Ovarian oophorectomy Social Hx: No tobacco, EtOH, or illicit drug use Family Hx: none given Active Medications Acetaminophen (Tylenol 325mg Tab) 650 mg PO Q4 PRN PRN Reason: Pain, Mild (1-3) Last Admin: 11/20/18 06:26 Dose: 650 mg Enoxaparin Sodium (Lovenox) 40 mg SC DAILY MARYSE; Protocol Folic Acid (Folic Acid) 1 mg PO DAILY MARYSE Last Admin: 11/20/18 12:06 Dose: 1 mg Vancomycin HCl (Vancomycin 1gm) 1 gm in 250 mls @ 167 mls/hr IVPB DAILY MARYSE; Protocol Cefepime HCl (Maxipime 1gm) 1 gm in 100 mls @ 100 mls/hr IVPB Q12 MARYSE; Protocol Last Admin: 11/20/18 12:08 Dose: 100 mls/hr Sodium Chloride (Sodium Chloride 0.9%) 1,000 mls @ 75 mls/hr IV .[id number] MARYSE Stop: 11/21/18 01:04 Ketorolac Tromethamine (Toradol) 15 mg IVP Q6 PRN PRN Reason: Pain, Mild (1-3) Last Admin: 11/20/18 12:00 Dose: 15 mg Lidocaine (Lidoderm) 1 ea TD DAILY MARYSE Last Admin: 11/20/18 12:10 Dose: 1 ea Morphine Sulfate (Morphine Extended Release Tab) 30 mg PO Q12 MARYSE Last Admin: 11/20/18 12:06 Dose: 30 mg Ondansetron HCl (Zofran Inj) 4 mg IVP Q6H PRN PRN Reason: Nausea/Vomiting Oxycodone HCl (Oxycodone Immediate Release Tab) 5 mg PO Q4 PRN PRN Reason: Pain, severe (8-10) Polyethylene Glycol (Miralax) 17 gm PO BID MARYSE Last Admin: 11/20/18 12:10 Dose: 17 gm Potassium Phos/Sodium Phos (Neutra-Phos) 1 pkt PO TID [facility] Stop: 11/20/18 18:01 Allergies: NKDA ROS: severe back pain, fevers NO chest pain, abdominal pain, melena, hematuria, hematemesis, hematochezia, depression, anxiety, diarrhea, vision loss, hearing loss, loss of consciousness Past Patient History - Infectious Disease Hx of Infectious Diseases: None - Tetanus Immunizations Tetanus Immunization: Unknown - Past Medical History & Family History Past Medical History?: Yes - Past Social History Smoking Status: Never Smoked - CARDIAC Hx Cardiac Disorders: No - PULMONARY Hx Respiratory Disorders: No - NEUROLOGICAL Hx Neurological Disorder: No - HEENT Hx HEENT Problems: No - RENAL Hx Chronic Kidney Disease: No - ENDOCRINE/METABOLIC Hx Endocrine Disorders: No - HEMATOLOGICAL/ONCOLOGICAL Hx Blood Disorders: No Hx Blood Transfusion Reaction: No - INTEGUMENTARY Hx Dermatological Problems: No - MUSCULOSKELETAL/RHEUMATOLOGICAL Hx Musculoskeletal Disorders: No - GASTROINTESTINAL Hx Gastrointestinal Disorders: No - GENITOURINARY/GYNECOLOGICAL Hx Genitourinary Disorders: Yes Hx Ovarian Cancer: Yes - PSYCHIATRIC Hx Emotional Abuse: No Hx Physical Abuse: No Hx Substance Use: No - SURGICAL HISTORY Other/Comment: ROBOTIC HYSTERECTOMY;OVARIAN CYSTECTOMY - ANESTHESIA Hx Anesthesia: Yes Hx Anesthesia Reactions: No Hx Malignant Hyperthermia: No Meds Allergies/Adverse Reactions: Allergies Allergy/AdvReac Type Severity Reaction Status Date / Time No Known Allergies Allergy Verified 06/26/18 11:55 - Medications Medications: Current Medications Acetaminophen (Tylenol 325mg Tab) 650 mg PO Q4 PRN PRN Reason: Pain, Mild (1-3) Last Admin: 11/20/18 06:26 Dose: 650 mg Enoxaparin Sodium (Lovenox) 40 mg SC DAILY MARYSE; Protocol Folic Acid (Folic Acid) 1 mg PO DAILY MARYSE Last Admin: 11/20/18 12:06 Dose: 1 mg Vancomycin HCl (Vancomycin 1gm) 1 gm in 250 mls @ 167 mls/hr IVPB DAILY MARYSE; Protocol Cefepime HCl (Maxipime 1gm) 1 gm in 100 mls @ 100 mls/hr IVPB Q12 MARYSE; Protocol Last Admin: 11/20/18 12:08 Dose: 100 mls/hr Sodium Chloride (Sodium Chloride 0.9%) 1,000 mls @ 75 mls/hr IV .[id number] [facility] Stop: 11/21/18 01:04 Ketorolac Tromethamine (Toradol) 15 mg IVP Q6 PRN PRN Reason: Pain, Mild (1-3) Last Admin: 11/20/18 12:00 Dose: 15 mg Lidocaine (Lidoderm) 1 ea TD DAILY [facility] Last Admin: 11/20/18 12:10 Dose: 1 ea Morphine Sulfate (Morphine Extended Release Tab) 30 mg PO Q12 [facility] Last Admin: 11/20/18 12:06 Dose: 30 mg Ondansetron HCl (Zofran Inj) 4 mg IVP Q6H PRN PRN Reason: Nausea/Vomiting Oxycodone HCl (Oxycodone Immediate Release Tab) 5 mg PO Q4 PRN PRN Reason: Pain, severe (8-10) Polyethylene Glycol (Miralax) 17 gm PO BID [facility] Last Admin: 11/20/18 12:10 Dose: 17 gm Potassium Phos/Sodium Phos (Neutra-Phos) 1 pkt PO TID [facility] Stop: 11/20/18 18:01 Physical Exam - Constitutional Appears: Non-toxic, No Acute Distress, Chronically Ill - Head Exam Head Exam: ATRAUMATIC, NORMOCEPHALIC - Eye Exam Eye Exam: EOMI, PERRL Pupil Exam: NORMAL ACCOMODATION, PERRL - ENT Exam ENT Exam: Mucous Membranes Moist, Normal External Ear Exam, TM's Normal Bilaterally - Neck Exam Neck exam: Positive for: Full Rom, Normal Inspection - Respiratory Exam Respiratory Exam: Clear to Auscultation Bilateral, NORMAL BREATHING PATTERN. absent: Rales, Rhonchi, Wheezes - Cardiovascular Exam Cardiovascular Exam: Tachycardia, +S1, +S2 - GI/Abdominal Exam GI & Abdominal Exam: Normal Bowel Sounds, Soft. absent: Distended, Tenderness - Extremities Exam Extremities exam: Positive for: full ROM, normal inspection - Neurological Exam Neurological exam: Alert, CN II-XII Intact, Oriented x3 - Psychiatric Exam Psychiatric exam: Normal Affect, Normal Mood - Skin Skin Exam: Intact, Normal Color Results - Vital Signs Recent Vital Signs: Last Vital Signs Temp 98.3 F 11/20/18 12:00 Pulse 117 H 11/20/18 12:00 Resp 18 11/20/18 12:00 BP 119/80 11/20/18 12:00 Pulse Ox 99 11/20/18 06:00 - Labs Result Diagrams: 11/20/18 06:00 11/20/18 06:00 Labs: Laboratory Results - last 24 hr 11/20/18 11/20/18 11/20/18 06:00 06:00 07:00 WBC 1.9 L* D RBC 2.73 L Hgb 7.2 L Hct 23.4 L MCV 85.7 MCH 26.4 MCHC 30.8 L RDW 21.7 H Plt Count 82 L MPV 8.5 Neut % (Auto) 79.7 H Lymph % (Auto) 14.6 L [place] % (Auto) 5.7 Eos % (Auto) 0.0 L Baso % (Auto) 0.0 Lymph # (Auto) 0.3 L [place] # (Auto) 0.1 Eos # (Auto) 0.0 Baso # (Auto) 0.00 Absolute Neuts (auto) 1.53 Sodium 131 L Potassium 3.5 L Chloride 95 L Carbon Dioxide 26 Anion Gap 13 BUN 10 Creatinine 0.3 L Est GFR ( Amer) > 60 Est GFR (Non-Af Amer) > 60 Random Glucose 101 Calcium 7.9 L Phosphorus 2.0 L Magnesium 1.8 Total Bilirubin 0.6 AST 73 H D ALT 32 Alkaline Phosphatase 137 H D Total Protein 6.1 Albumin 3.0 Globulin 3.1 Albumin/Globulin Ratio 1.0 L Urine Color Dark yellow Urine Appearance Clear Urine pH 6.5 Ur Specific [place] 1.015 Urine Protein Negative Urine Glucose (UA) Negative Urine Ketones Negative Urine Blood Trace-intact H Urine Nitrate Negative Urine Bilirubin Negative Urine Urobilinogen 4.0 H Ur Leukocyte Esterase Moderate H Urine RBC 0 - 2 Urine WBC 2 - 5 Ur Epithelial Cells 1 - 3 Assessment & Plan - Assessment and Plan (Free Text) Assessment: 47 yo female with metastatic (stage 4) Ovarian cancer to bone and lungs with chronic severe back pain. Had PET CT suggestive of Pathologic Vertebral Body fracture of the L-spine. Kyphoplasty done on 11/18/2018. The patient with fevers up to 102.1 F this AM. Leukopenia noted as well. Check for Influenza and other viruses such as CMV and EBV. Start Tamiflu for now. Leukopenia and fevers can be secondary to recent Kyphoplasty surgery as well. Send belcher cultures for evaluation. Currently on Cefepime and Vancomycin IV for antibiotic coverage which is a good starting point. Thank you for allowing me to participate in the care of the patient, we will follow with you.
[2018-11-20] MEDS ORDERED: Potassium Chloride 20 mEq ER Tab PO STA (15:34)
[2018-11-20] MEDS: Vancomycin 1gm in NS 250ml 1 GM/250 ML BAG IVPB SCH (18:39)
[2018-11-21 07:19] LABS: LYMPH # 0.2 (1.2-3.4); LYMPH % 19.8 % (22.0-35.0); MEAN CELL VOLUME 86.1 fl (80.0-105.0); MEAN CORPUSCULAR HGB CONC 31.4 g/dl (31.0-37.0); MONO # 0.1 (0.1-0.6); MONO % 12.5 % (1.0-6.0); PLATELET COUNT 51 10^3/uL (120.0-450.0); RBC 2.37 10^6/uL (3.5-6.1); RED CELL DISTRIBUTION WIDTH 21.5 % (11.5-14.5)
[2018-11-21 07:52] LABS: ALB/GLOB RATIO 0.9 (1.1-1.8); ALBUMIN 2.8 g/dL (3.0-4.8); ALT/SGPT 41 U/L (7-56); AST/SGOT 70 U/L (14-36); BLOOD UREA NITROGEN 9 mg/dL (7-21); CALCIUM 7.6 mg/dL (8.4-10.5); GFR NON-AFRICAN AMERICAN > 60
[2018-11-21 07:55] LABS: HEMOGLOBIN 6.4 g/dL (12.0-16.0)
[2018-11-21 10:00] LABS: ATYPICAL LYMPHOCYTE 1 % (0.0-0.0); BAND 8 % (0-2); LYMPHOCYTE 23 % (22.0-35.0); NEUTROPHIL 60 % (50.0-70.0)
[2018-11-21 10:01] LABS: ANISOCYTOSIS 2+; HYPOCHROMIA 1+; MONOCYTE 8 % (1.0-6.0); PLATELET ESTIMATE LOW (NORMAL)
[2018-11-21] MEDS: Vancomycin 1gm in NS 250ml 1 GM/250 ML BAG IVPB SCH (10:03)
[2018-11-21] MEDS: Lidocaine 5% Patch TD SCH (10:03)
[2018-11-21] MEDS: Enoxaparin 40 mg Syringe SC SCH (10:04)
[2018-11-21] MEDS: Morphine 30 mg SR Tab PO SCH ×2 (10:04→21:27)
[2018-11-21] MEDS: POLYETHYLENE GLYCOL 3350 17 GM/Dose PACKET PO SCH ×2 (10:04→17:20)
[2018-11-21] MEDS: Cefepime 1gm in NS 100ml 1 GM/100 ML BAG IVPB SCH ×2 (10:04→21:28)
--- NOTE | 2018-11-21 11:14 | CP.PCM.PN ---
<Luis Craft - Last Filed: 11/21/18 13:15> Subjective - Date & Time of Evaluation Date of Evaluation: 11/21/18 Time of Evaluation: 09:00 - Subjective Subjective: Luis Craft PGY-1 Progress Note for Hospitalist Service Patient seen and evaluated at bedside. Febrile to 103 overnight. Presently sitting in bed comfortably with family member at bedside. Patient can speak in full sentences without becoming breathless. Reports pain is currently controlled. No bowel movements at this time, but patient refused Miralax and Mg citrate. Objective - Vital Signs/Intake and Output Vital Signs (last 24 hours): Temp Pulse Resp BP Pulse Ox 99.5 F 119 H 20 112/74 99 11/21/18 05:57 11/21/18 05:57 11/21/18 05:57 11/21/18 05:57 11/21/18 05:57 Intake and Output: 11/21/18 11/21/18 06:59 18:59 Intake Total 840 Output Total 900 Balance -60 - Medications Medications: Current Medications Acetaminophen (Tylenol 325mg Tab) 650 mg PO Q4 PRN PRN Reason: Pain, Mild (1-3) Last Admin: 11/21/18 03:37 Dose: 650 mg Enoxaparin Sodium (Lovenox) 40 mg SC DAILY MARYSE; Protocol Last Admin: 11/21/18 10:04 Dose: 40 mg Folic Acid (Folic Acid) 1 mg PO DAILY MARYSE Last Admin: 11/21/18 10:04 Dose: 1 mg Vancomycin HCl (Vancomycin 1gm) 1 gm in 250 mls @ 167 mls/hr IVPB DAILY MARYSE; Protocol Last Admin: 11/21/18 10:03 Dose: 167 mls/hr Cefepime HCl (Maxipime 1gm) 1 gm in 100 mls @ 100 mls/hr IVPB Q12 MARYSE; Protocol Last Admin: 11/21/18 10:04 Dose: 100 mls/hr Ketorolac Tromethamine (Toradol) 15 mg IVP Q6 PRN PRN Reason: Pain, Mild (1-3) Last Admin: 11/21/18 11:03 Dose: 15 mg Lidocaine (Lidoderm) 1 ea TD DAILY MARYSE Last Admin: 11/21/18 10:03 Dose: 1 ea Morphine Sulfate (Morphine Extended Release Tab) 30 mg PO Q12 MARYSE Last Admin: 11/21/18 10:04 Dose: 30 mg Ondansetron HCl (Zofran Inj) 4 mg IVP Q6H PRN PRN Reason: Nausea/Vomiting Oseltamivir Phosphate (Tamiflu Cap) 75 mg PO BID [facility]; Protocol Stop: 11/26/18 07:45 Last Admin: 11/21/18 10:04 Dose: 75 mg Oxycodone HCl (Oxycodone Immediate Release Tab) 5 mg PO Q4 PRN PRN Reason: Pain, severe (8-10) Polyethylene Glycol (Miralax) 17 gm PO BID [facility] Last Admin: 11/21/18 10:04 Dose: 17 gm - Labs Labs: 11/21/18 07:00 11/21/18 07:00 PT 14.4 SECONDS (9.4-12.5) H 11/18/18 11:30 INR 1.27 11/18/18 11:30 APTT 30.4 Seconds (26.9-38.3) 11/18/18 11:30 - Additional Findings Additional findings: - Constitutional Appears: Chronically Ill Additional comments: Comfortable, pain currently controlled - Head Exam Head Exam: ATRAUMATIC, NORMAL INSPECTION - Eye Exam Eye Exam: EOMI, Normal appearance - ENT Exam ENT Exam: Normal Oropharynx Additional comments: Cold sores evident in oral cavity - Respiratory Exam Respiratory Exam: Clear to Auscultation Bilateral. absent: Rales, Rhonchi, Wheezes, Respiratory Distress - Back exam vertebral TTP, no erythema or discharge at kyphoplasty site - Cardiovascular Exam Cardiovascular Exam: Tachycardia, +S1, +S2. absent: Gallop, Rubs, Systolic Murmur - GI/Abdominal Exam GI & Abdominal Exam: Normal Bowel Sounds, Soft. 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 Plan: SIRS with Fever of unknown origin - Tachy, hypertensive - may be secondary to post-op vs underlying infection - F/U repeat blood culture, UA, Urine culture - F/u CTA chest PE protocol - F/U CT abdomen/pelvis IV contrast for ? spinal abscess - Vanc and Cefepime coverage - Tamiflu started empirically, f/u influenza - CXR: no acute disease - Continue to monitor Neutropenia, Thrombocytopenia - 2/2 chemo vs febrile neutropenia - Granix 480 mcg given per Hem recs - Neutropenic precautions - Continue to monitor Sinus tachycardia - Likely 2/2 pain vs fever - EKG: Sinus tachycardia @ 135, no ST changes - LE Venous Dopplers: No DVT - Pain control with Toradol, Lidoderm, and Oxycodone - Troponin: <0.01 X 3 Constipation - Monitor for BM - C/w Miralax BID; s/p Relistor 1 dose, will give a second dose tonight Normocytic anemia - Hgb drop to 6.4, 2 PRBC units to be transfused 2 units with f/u H&H. Patient consented - F/U peripheral blood smear - Iron 71, TIBC 160, Ferritin 862, B12 571 - Heme-onc consulted, Dr. John Urban - anemia 2/2 chemotherapy and chronic disease from malignancy, s/p dose of Aranesp Intractable back pain- likely 2/2 to metastatic cancer - PET Scan (11/03): Pulmonary and osseous metastatic disease. Lytic lesion at L3 vertebral body with cortical disruption concerning for pathologic fracture. - MRI of Lumbar spine: Diffuse bony metastatic disease throughout the spine. No evidence of vertebral compression fracture or epidural invasion. Disc degeneration with foraminal stenosis at L5-S1 - Patient is s/p RFA of L3 and kyphoplasty of L3 on 11/18 - CA 125 elevated at 167 - Toradol 15mg IV Q6 PRN, Morphine 30 mg Q12 extended release - Oxy 5 q 4 PRN, Lidoderm patch - Zofran 4 mg q6h for nausea - Heme-Onc consulted, Dr. John Urban - IR consulted, Dr. Mao Lechuga - PT/OT evaluation appreciated Folate deficiency - Level of 2.6, RBC level noted - Repletion daily Hypophosphatemia - repleted with Neutraphos - F/U repeat Phos in AM - Continue to monitor DVT Ppx: Lovenox, SCDs. Hold LVX if PLT drop below 50 Patient seen, case reviewed and plan approved by Dr. Nicole. Luis Craft, PGY-1 <Elvia Nicole - Last Filed: 11/21/18 13:34> Objective - Vital Signs/Intake and Output Vital Signs (last 24 hours): Temp Pulse Resp BP Pulse Ox 99.5 F 119 H 20 112/74 99 11/21/18 05:57 11/21/18 05:57 11/21/18 05:57 11/21/18 05:57 11/21/18 05:57 Intake and Output: 11/21/18 11/21/18 06:59 18:59 Intake Total 840 Output Total 900 Balance -60 - Medications Medications: Current Medications Acetaminophen (Tylenol 325mg Tab) 650 mg PO Q4 PRN PRN Reason: Pain, Mild (1-3) Last Admin: 11/21/18 03:37 Dose: 650 mg Enoxaparin Sodium (Lovenox) 40 mg SC DAILY MARYSE; Protocol Last Admin: 11/21/18 10:04 Dose: 40 mg Folic Acid (Folic Acid) 1 mg PO DAILY MARYSE Last Admin: 11/21/18 10:04 Dose: 1 mg Vancomycin HCl (Vancomycin 1gm) 1 gm in 250 mls @ 167 mls/hr IVPB DAILY MARYSE; Protocol Last Admin: 11/21/18 10:03 Dose: 167 mls/hr Cefepime HCl (Maxipime 1gm) 1 gm in 100 mls @ 100 mls/hr IVPB Q12 MARYSE; Protocol Last Admin: 11/21/18 10:04 Dose: 100 mls/hr Sodium Chloride (Sodium Chloride 0.9%) 1,000 mls @ 75 mls/hr IV .[id number] MARYSE Ketorolac Tromethamine (Toradol) 15 mg IVP Q6 PRN PRN Reason: Pain, Mild (1-3) Last Admin: 11/21/18 11:03 Dose: 15 mg Lidocaine (Lidoderm) 1 ea TD DAILY MARYSE Last Admin: 11/21/18 10:03 Dose: 1 ea Methylnaltrexone [place] (Relistor) 8 mg SC ONCE ONE Stop: 11/21/18 18:31 Morphine Sulfate (Morphine Extended Release Tab) 30 mg PO Q12 MARYSE Last Admin: 04/14/19 10:04 Dose: 30 mg Ondansetron HCl (Zofran Inj) 4 mg IVP Q6H PRN PRN Reason: Nausea/Vomiting Last Admin: 11/21/18 12:45 Dose: 4 mg Oseltamivir Phosphate (Tamiflu Cap) 75 mg PO BID [facility]; Protocol Stop: 11/26/18 07:45 Last Admin: 11/21/18 10:04 Dose: 75 mg Oxycodone HCl (Oxycodone Immediate Release Tab) 5 mg PO Q4 PRN PRN Reason: Pain, severe (8-10) Polyethylene Glycol (Miralax) 17 gm PO BID [facility] Last Admin: 11/21/18 10:04 Dose: 17 gm - Labs Labs: 11/21/18 07:00 11/21/18 07:00 PT 14.4 SECONDS (9.4-12.5) H 11/18/18 11:30 INR 1.27 11/18/18 11:30 APTT 30.4 Seconds (26.9-38.3) 11/18/18 11:30 Attending/Attestation - Attestation I have personally seen and examined this patient.: Yes I have fully participated in the care of the patient.: Yes I have reviewed all pertinent clinical information, including history, physical exam and plan: Yes Notes (Text): 11/21/18 13:27 47 year old female with past medical history of metastatic ovarian cancer (to lung and bone) on chemotherapy, history of ovarian oopherectomy, and history of chronic back pain who presented with complaint of intractable back pain. She had a recent outpatient PET scan which showed pulmonary and osseous metastatic disease; lytic lesion at L3 vertebral body with cortical disruption concerning for pathologic fracture. MRI spine also showed metastatic disease to bone. She was seen by IR and is s/p kyphoplasty and RFA. She is on toradol, morphine ER and lidoderm patch. She reports improvement of her pain since the procedure. Patient began to have fevers and pancytopenia. Continue with neutropenic precautions. Continue with broad spectrum antibiotics and Tamiflu as per ID. Follow up on cultures. In light of persistent fever and tachycardia will obtain CT chest/abd/pelvis. Hematology is following and recommended granix and prbc transfusion. Continue with folic acid. S/p aranesp. She is on miralax for constipation which is intermittently refuses. Relistor administered as per heme/onc. PT evaluation was appreciated who recommended JASMINA, however patient is refusing and requesting to be discharged home. Will have PT reassess prior to discharge. Elvia Nicole MD Hospitalist.
[2018-11-21] MEDS ORDERED: Potassium & Sodium Phosphate PO ONE (11:40)
[2018-11-21] MEDS: oxyCODONE 5 mg Immediate Release Tab PO PRN (15:06)
[2018-11-21] MEDS: Sodium Chloride 0.9% 1,000 ML IV SCH (15:11)
--- NOTE | 2018-11-21 16:03 | CT ---
Date of service: 11/21/2018 PROCEDURE: CT Chest with contrast (Pulmonary Angiogram) HISTORY: Sustained tachycardia COMPARISON: Correlation made with PET-CT scan 11/03/2018. TECHNIQUE: Axial computed tomography images were obtained of the chest in the pulmonary arterial phase of enhancement. Coronal and sagittal reformatted images were created and reviewed. Intravenous contrast dose: 96 cc Omnipaque 350 Radiation dose: Total exam DLP = 229.77 mGy-cm. This CT exam was performed using one or more of the following dose reduction techniques: Automated exposure control, adjustment of the mA and/or kV according to patient size, and/or use of iterative reconstruction technique. FINDINGS: Note the examination is somewhat limited due to suboptimal opacification of the pulmonary arteries as well as crossing streak and beam hardening artifact arising from the upper extremities which have not been moved from the field of view. PULMONARY ARTERIES: The visualized pulmonary trunk, right and left main, lobar and segmental and proximal subsegmental branches of the pulmonary arteries are relatively well opacified with no definitive filling defects seen to suggest acute central pulmonary embolus.. There is however splaying and compressive effects on the upper lobe of branches of the pulmonary artery due to aforementioned left upper lobe mass. Pulmonary trunk measures approximately 2.5 cm. AORTA: No acute findings. No thoracic aortic aneurysm. Ascending thoracic aorta measures approximately 3.0 cm and descending thoracic aorta measures approximately 2.2 cm. No significant aortic c atherosclerotic calcification or mural plaque present. LUNGS: Redemonstrated is a larger lobulated left upper lobe mass which abuts the left transverse portion of the aortic arch and descending thoracic aorta as well as superior margin of the left main pulmonary artery consistent with tumor. Multiple (too numerous to count) small to medium-sized metastatic parenchymal nodules are seen throughout the upper and lower lobes bilaterally... There are mild linear atelectatic and/or scarring changes seen both lung bases. No evidence of significant consolidation changes. PLEURAL SPACES: Unremarkable. No effusion or pneumothorax. HEART: Heart size within range of normal. No significant pericardial effusion.. No cardiomegaly. No significant pericardial effusion. LYMPH NODES: No significant mediastinal adenopathy. There appears to be adenopathy in the left suprahilar region contiguous with left upper lobe mass. BONES, CHEST WALL: Previously noted scattered bony metastatic lesions are less well seen on this exam as compared to prior PET-CT scan. No acute compression fractures no retropulsed fragments. OTHER FINDINGS: Unremarkable. IMPRESSION: No definitive evidence of acute central pulmonary embolus. Left upper lobe pulmonary arteries are displaced and somewhat compressed by large left upper lobe mass. Multiple small to medium-sized parenchymal metastatic nodules scattered throughout the upper and lower lobes bilaterally. Multiple bone metastases less well seen as compared to prior PET-CT scan. Please refer that study for additional details.
--- NOTE | 2018-11-21 16:33 | CP.PCM.PN ---
Subjective - Date & Time of Evaluation Date of Evaluation: 11/21/18 Time of Evaluation: 15:15 - Subjective Subjective: Infectious Disease Follow Up: November 21, 2018 47 yo female with Ovarian cancer with mets to lung and bone presented with back pain. The patient has a history of chronic back pain. ID called into case as the patient became Leukopenic and developed fevers up to 102.1 F this morning. Patient received Chemotherapy 5 days prior to this hospitalization. Cultures negative to date. Noted outpatient PET CT scan suggested pathologic vertebral body fracture involving L-spine. Kyphoplasty was performed on 11/19/2018. Afebrile so far today with temperature up to 100.0 F. Objective - Vital Signs/Intake and Output Vital Signs (last 24 hours): Temp Pulse Resp BP Pulse Ox 99.3 F 123 H 20 143/84 97 11/21/18 15:50 11/21/18 15:50 11/21/18 15:50 11/21/18 15:50 11/21/18 12:00 Intake and Output: 11/21/18 11/21/18 06:59 18:59 Intake Total 840 50 Output Total 900 Balance -60 50 - Medications Medications: Current Medications Acetaminophen (Tylenol 325mg Tab) 650 mg PO Q4 PRN PRN Reason: Pain, Mild (1-3) Last Admin: 11/21/18 03:37 Dose: 650 mg Enoxaparin Sodium (Lovenox) 40 mg SC DAILY [facility]; Protocol Last Admin: 11/21/18 10:04 Dose: 40 mg Folic Acid (Folic Acid) 1 mg PO DAILY [facility] Last Admin: 11/21/18 10:04 Dose: 1 mg Vancomycin HCl (Vancomycin 1gm) 1 gm in 250 mls @ 167 mls/hr IVPB DAILY [facility]; Protocol Last Admin: 11/21/18 10:03 Dose: 167 mls/hr Cefepime HCl (Maxipime 1gm) 1 gm in 100 mls @ 100 mls/hr IVPB Q12 [facility]; Protocol Last Admin: 11/21/18 10:04 Dose: 100 mls/hr Sodium Chloride (Sodium Chloride 0.9%) 1,000 mls @ 75 mls/hr IV .[id number] [facility] Last Admin: 11/21/18 15:11 Dose: 75 mls/hr Ketorolac Tromethamine (Toradol) 15 mg IVP Q6 PRN PRN Reason: Pain, Mild (1-3) Last Admin: 11/21/18 11:03 Dose: 15 mg Lidocaine (Lidoderm) 1 ea TD DAILY [facility] Last Admin: 11/21/18 10:03 Dose: 1 ea Methylnaltrexone [place] (Relistor) 8 mg SC ONCE ONE Stop: 11/21/18 18:31 Morphine Sulfate (Morphine Extended Release Tab) 30 mg PO Q12 [facility] Last Admin: 11/21/18 10:04 Dose: 30 mg Ondansetron HCl (Zofran Inj) 4 mg IVP Q6H PRN PRN Reason: Nausea/Vomiting Last Admin: 11/21/18 12:45 Dose: 4 mg Oseltamivir Phosphate (Tamiflu Cap) 75 mg PO BID [facility]; Protocol Stop: 11/26/18 07:45 Last Admin: 11/21/18 10:04 Dose: 75 mg Oxycodone HCl (Oxycodone Immediate Release Tab) 5 mg PO Q4 PRN PRN Reason: Pain, severe (8-10) Last Admin: 11/21/18 15:06 Dose: 5 mg Polyethylene Glycol (Miralax) 17 gm PO BID [facility] Last Admin: 11/21/18 10:04 Dose: 17 gm - Labs Labs: 11/21/18 07:00 11/21/18 07:00 PT 14.4 SECONDS (9.4-12.5) H 11/18/18 11:30 INR 1.27 11/18/18 11:30 APTT 30.4 Seconds (26.9-38.3) 11/18/18 11:30 - Constitutional Appears: Non-toxic, No Acute Distress, Chronically Ill - Head Exam Head Exam: ATRAUMATIC, NORMOCEPHALIC - Eye Exam Eye Exam: EOMI, PERRL Pupil Exam: NORMAL ACCOMODATION, PERRL - ENT Exam ENT Exam: Mucous Membranes Moist, Normal External Ear Exam, TM's Normal Bilaterally - Neck Exam Neck Exam: Full ROM, Normal Inspection - Respiratory Exam Respiratory Exam: Clear to Ausculation Bilateral, NORMAL BREATHING PATTERN. absent: Rales, Rhonchi, Wheezes - Cardiovascular Exam Cardiovascular Exam: Tachycardia, +S1, +S2 - GI/Abdominal Exam GI & Abdominal Exam: Soft, Normal Bowel Sounds. absent: Distended, Tenderness - Extremities Exam Extremities Exam: Full ROM, Normal Inspection - Neurological Exam Neurological Exam: Alert, Awake, CN II-XII Intact, Oriented x3 - Psychiatric Exam Psychiatric exam: Normal Affect, Normal Mood - Skin Skin Exam: Intact, Normal Color Assessment and Plan - Assessment and Plan (Free Text) Assessment: 47 yo female with metastatic (stage 4) Ovarian cancer to bone and lungs with chronic severe back pain. Had PET CT suggestive of Pathologic Vertebral Body fracture of the L-spine. Kyphoplasty done on 11/18/2018. The patient with fevers up to 102.1 F yesterday AM. Leukopenia noted as well. Check for Influenza and other viruses such as CMV and EBV. Start Tamiflu for now. Leukopenia and fevers can be secondary to recent Kyphoplasty surgery as well. Send belcher cultures for evaluation. Currently on Cefepime and Vancomycin IV for antibiotic coverage which is a good starting point. Tmax over the past 24 hours was 103.0 F. Afebrile so far today with temperature up to 100.0 F. CMV and EBV ordered for the AM. Please send Influenza testing. Thank you for allowing me to participate in the care of the patient, we will follow with you.
--- NOTE | 2018-11-21 16:40 | CT ---
Date of service: 11/21/2018 PROCEDURE: CT abdomen and pelvis. HISTORY: Rule out spinal abscess. Patient has a history of metastatic ovarian carcinoma COMPARISON: Correlation made with concurrent CTA chest as well as prior PET-CT scan 11/03/2018. TECHNIQUE: Contiguous axial images of the abdomen and pelvis performed following intravenous injection of approximately 96 cc of Omnipaque 350 contrast material. Additional 2D sagittal and coronal reformats generated. Radiation dose: Total exam DLP = 607.06 mGy-cm. This CT exam was performed using one or more of the following dose reduction techniques: Automated exposure control, adjustment of the mA and/or kV according to patient size, and/or use of iterative reconstruction technique. FINDINGS: LOWER THORAX: Numerous small medium-sized metastatic deposits again noted in both lower lung crisostomo. LIVER: Liver exhibits relatively normal size measuring approximately 18 cm in CC dimension. Minor fatty hepatic infiltration. No obvious hepatic masses collections or calcifications. Portal and splenic veins are opacified. GALLBLADDER AND BILE DUCTS: Gallbladder is incompletely distended with slight thick-walled appearance. PANCREAS: Unremarkable. No mass. No ductal dilatation. SPLEEN: Spleen exhibits normal size and attenuation pattern without mass collection or calcification. ADRENALS: There are no adrenal lesions. KIDNEYS AND URETERS: Kidneys demonstrate symmetric nephrograms. No evidence of nephrolithiasis or hydronephrosis. BLADDER: The urinary bladder is appears incompletely distended with a large amount of excreted opaque contrast material resulting in crossing streak and beam hardening artifact. Mild urinary bladder wall thickening REPRODUCTIVE: Hysterectomy APPENDIX: No definitive radiographic evidence of acute appendicitis. BOWEL: Evaluation of the bowel is somewhat limited due to the lack of oral contrast material. Stomach is partially distended with liquid food debris and air. Visualized loops of small bowel exhibit normal contour and caliber. No evidence of acute mechanical small bowel obstruction. Stool and air seen throughout the large bowel. PERITONEUM: Unremarkable. No fluid collection. No free air. LYMPH NODES: Unremarkable. No enlarged lymph nodes. VASCULATURE: Unremarkable. No aortic aneurysm. No significant aortic atherosclerotic calcification or mural plaque present. BONES: No definitive evidence of discitis osteomyelitis or paraspinal mass. No obvious intradural lesions so far as can be seen within limitation of the study. Consider follow-up MRI of the lumbar spine if paraspinal abscess is suspected. There is a small asymmetric broad-based bulge of the posterior annulus seen at the L1-L2 level that compresses the ventral surface of the thecal sac centrally into the right more so than left. Multiple metastatic lytic lesions scattered throughout the lower thoracic and lumbar spine less well seen on this study as compared to PET-CT scan. Interval kyphoplasty L3 segment. Redemonstrated is an approximately grade 1-grade 2 spondylolisthesis L5-S1 level due to bilateral spondylolysis. Multiple lesions scattered throughout the pelvis also less well seen. OTHER FINDINGS: None. IMPRESSION: There are multiple metastatic lesions both lung bases. Multiple osseous metastases. Interval kyphoplasty L3 segment. No evidence of discitis osteomyelitis. No obvious paraspinal soft tissue lesions. There is a small asymmetric broad-based bulge of the posterior annulus seen at the L1-L2 level that compresses the ventral surface of the thecal sac centrally into the right more so than left. Within limitation of the exam, there are no obvious extradural masses or collections not withstanding the aforementioned disc bulge.. Consider follow-up MRI if further evaluation is required Mild fatty hepatic infiltration. Hysterectomy. See above discussion for additional details and findings
--- NOTE | 2018-11-21 21:22 | CP.PCM.PN ---
Subjective - Date & Time of Evaluation Date of Evaluation: 11/19/18 Time of Evaluation: 12:00 - Subjective Subjective: Has back pain. Objective - Vital Signs/Intake and Output Vital Signs (last 24 hours): Temp Pulse Resp BP Pulse Ox 98.5 F 111 H 19 119/75 97 11/21/18 20:48 11/21/18 20:48 11/21/18 20:48 11/21/18 20:48 11/21/18 12:00 Intake and Output: 11/21/18 11/22/18 18:59 06:59 Intake Total 50 1075 Output Total 750 Balance 50 325 - Medications Medications: Current Medications Acetaminophen (Tylenol 325mg Tab) 650 mg PO Q4 PRN PRN Reason: fever > 100.4 /mild pain (1-3) Enoxaparin Sodium (Lovenox) 40 mg SC DAILY [facility]; Protocol Last Admin: 11/21/18 10:04 Dose: 40 mg Folic Acid (Folic Acid) 1 mg PO DAILY [facility] Last Admin: 11/21/18 10:04 Dose: 1 mg Vancomycin HCl (Vancomycin 1gm) 1 gm in 250 mls @ 167 mls/hr IVPB DAILY [facility]; Protocol Last Admin: 11/21/18 10:03 Dose: 167 mls/hr Cefepime HCl (Maxipime 1gm) 1 gm in 100 mls @ 100 mls/hr IVPB Q12 [facility]; Protocol Last Admin: 11/21/18 10:04 Dose: 100 mls/hr Sodium Chloride (Sodium Chloride 0.9%) 1,000 mls @ 75 mls/hr IV .[id number] [facility] Last Admin: 11/21/18 15:11 Dose: 75 mls/hr Ketorolac Tromethamine (Toradol) 15 mg IVP Q6 PRN PRN Reason: Pain, Mild (1-3) Last Admin: 11/21/18 17:02 Dose: 15 mg Lidocaine (Lidoderm) 1 ea TD DAILY [facility] Last Admin: 11/21/18 10:03 Dose: 1 ea Morphine Sulfate (Morphine Extended Release Tab) 30 mg PO Q12 [facility] Last Admin: 11/21/18 10:04 Dose: 30 mg Ondansetron HCl (Zofran Inj) 4 mg IVP Q6H PRN PRN Reason: Nausea/Vomiting Last Admin: 11/21/18 12:45 Dose: 4 mg Oseltamivir Phosphate (Tamiflu Cap) 75 mg PO BID [facility]; Protocol Stop: 11/26/18 07:45 Last Admin: 11/21/18 17:20 Dose: 75 mg Oxycodone HCl (Oxycodone Immediate Release Tab) 5 mg PO Q4 PRN PRN Reason: Pain, severe (8-10) Last Admin: 11/21/18 15:06 Dose: 5 mg Polyethylene Glycol (Miralax) 17 gm PO BID [facility] Last Admin: 11/21/18 17:20 Dose: 17 gm - Labs Labs: 11/21/18 07:00 11/21/18 07:00 PT 14.4 SECONDS (9.4-12.5) H 11/18/18 11:30 INR 1.27 11/18/18 11:30 APTT 30.4 Seconds (26.9-38.3) 11/18/18 11:30 - Head Exam Head Exam: ATRAUMATIC - Eye Exam Eye Exam: Normal appearance - ENT Exam ENT Exam: Mucous Membranes Dry - Respiratory Exam Respiratory Exam: NORMAL BREATHING PATTERN - Cardiovascular Exam Cardiovascular Exam: +S1, +S2 - GI/Abdominal Exam GI & Abdominal Exam: Normal Bowel Sounds Assessment and Plan (1) Back pain Assessment & Plan: s/p RFA and kyphoplasty to L3 pain meds with bowel regimen Status: Acute (2) Anemia Assessment & Plan: chronic disease from malignancy anemia of chemotherapy Status: Acute (3) Ovarian cancer Assessment & Plan: stage IV outpatient treatment Status: Acute
--- NOTE | 2018-11-21 21:23 | CP.PCM.PN ---
Subjective - Date & Time of Evaluation Date of Evaluation: 11/20/18 Time of Evaluation: 18:00 - Subjective Subjective: Feels constipated Objective - Vital Signs/Intake and Output Vital Signs (last 24 hours): Temp Pulse Resp BP Pulse Ox 98.5 F 111 H 19 119/75 97 11/21/18 20:48 11/21/18 20:48 11/21/18 20:48 11/21/18 20:48 11/21/18 12:00 Intake and Output: 11/21/18 11/22/18 18:59 06:59 Intake Total 50 1075 Output Total 750 Balance 50 325 - Medications Medications: Current Medications Acetaminophen (Tylenol 325mg Tab) 650 mg PO Q4 PRN PRN Reason: fever > 100.4 /mild pain (1-3) Enoxaparin Sodium (Lovenox) 40 mg SC DAILY [facility]; Protocol Last Admin: 11/21/18 10:04 Dose: 40 mg Folic Acid (Folic Acid) 1 mg PO DAILY [facility] Last Admin: 11/21/18 10:04 Dose: 1 mg Vancomycin HCl (Vancomycin 1gm) 1 gm in 250 mls @ 167 mls/hr IVPB DAILY [facility]; Protocol Last Admin: 11/21/18 10:03 Dose: 167 mls/hr Cefepime HCl (Maxipime 1gm) 1 gm in 100 mls @ 100 mls/hr IVPB Q12 [facility]; Protocol Last Admin: 11/21/18 10:04 Dose: 100 mls/hr Sodium Chloride (Sodium Chloride 0.9%) 1,000 mls @ 75 mls/hr IV .[id number] [facility] Last Admin: 11/21/18 15:11 Dose: 75 mls/hr Ketorolac Tromethamine (Toradol) 15 mg IVP Q6 PRN PRN Reason: Pain, Mild (1-3) Last Admin: 11/21/18 17:02 Dose: 15 mg Lidocaine (Lidoderm) 1 ea TD DAILY [facility] Last Admin: 11/21/18 10:03 Dose: 1 ea Morphine Sulfate (Morphine Extended Release Tab) 30 mg PO Q12 [facility] Last Admin: 11/21/18 10:04 Dose: 30 mg Ondansetron HCl (Zofran Inj) 4 mg IVP Q6H PRN PRN Reason: Nausea/Vomiting Last Admin: 11/21/18 12:45 Dose: 4 mg Oseltamivir Phosphate (Tamiflu Cap) 75 mg PO BID [facility]; Protocol Stop: 11/26/18 07:45 Last Admin: 11/21/18 17:20 Dose: 75 mg Oxycodone HCl (Oxycodone Immediate Release Tab) 5 mg PO Q4 PRN PRN Reason: Pain, severe (8-10) Last Admin: 11/21/18 15:06 Dose: 5 mg Polyethylene Glycol (Miralax) 17 gm PO BID [facility] Last Admin: 11/21/18 17:20 Dose: 17 gm - Labs Labs: 11/21/18 07:00 11/21/18 07:00 PT 14.4 SECONDS (9.4-12.5) H 11/18/18 11:30 INR 1.27 11/18/18 11:30 APTT 30.4 Seconds (26.9-38.3) 11/18/18 11:30 - Head Exam Head Exam: ATRAUMATIC - Eye Exam Eye Exam: Normal appearance - ENT Exam ENT Exam: Mucous Membranes Dry - Respiratory Exam Respiratory Exam: NORMAL BREATHING PATTERN - Cardiovascular Exam Cardiovascular Exam: +S1, +S2 - GI/Abdominal Exam GI & Abdominal Exam: Normal Bowel Sounds Assessment and Plan (1) Back pain Assessment & Plan: s/p RFA and kyphoplasty to L3 pain meds with bowel regimen Status: Acute (2) Anemia Assessment & Plan: chronic 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
--- NOTE | 2018-11-21 21:25 | CP.PCM.PN ---
Subjective - Date & Time of Evaluation Date of Evaluation: 11/21/18 Time of Evaluation: 17:00 - Subjective Subjective: Having fevers Objective - Vital Signs/Intake and Output Vital Signs (last 24 hours): Temp Pulse Resp BP Pulse Ox 98.5 F 111 H 19 119/75 97 11/21/18 20:48 11/21/18 20:48 11/21/18 20:48 11/21/18 20:48 11/21/18 12:00 Intake and Output: 11/21/18 11/22/18 18:59 06:59 Intake Total 50 1075 Output Total 750 Balance 50 325 - Medications Medications: Current Medications Acetaminophen (Tylenol 325mg Tab) 650 mg PO Q4 PRN PRN Reason: fever > 100.4 /mild pain (1-3) Enoxaparin Sodium (Lovenox) 40 mg SC DAILY [facility]; Protocol Last Admin: 11/21/18 10:04 Dose: 40 mg Folic Acid (Folic Acid) 1 mg PO DAILY [facility] Last Admin: 11/21/18 10:04 Dose: 1 mg Vancomycin HCl (Vancomycin 1gm) 1 gm in 250 mls @ 167 mls/hr IVPB DAILY [facility]; Protocol Last Admin: 11/21/18 10:03 Dose: 167 mls/hr Cefepime HCl (Maxipime 1gm) 1 gm in 100 mls @ 100 mls/hr IVPB Q12 [facility]; Protocol Last Admin: 11/21/18 10:04 Dose: 100 mls/hr Sodium Chloride (Sodium Chloride 0.9%) 1,000 mls @ 75 mls/hr IV .[id number] [facility] Last Admin: 11/21/18 15:11 Dose: 75 mls/hr Ketorolac Tromethamine (Toradol) 15 mg IVP Q6 PRN PRN Reason: Pain, Mild (1-3) Last Admin: 11/21/18 17:02 Dose: 15 mg Lidocaine (Lidoderm) 1 ea TD DAILY [facility] Last Admin: 11/21/18 10:03 Dose: 1 ea Morphine Sulfate (Morphine Extended Release Tab) 30 mg PO Q12 [facility] Last Admin: 11/21/18 10:04 Dose: 30 mg Ondansetron HCl (Zofran Inj) 4 mg IVP Q6H PRN PRN Reason: Nausea/Vomiting Last Admin: 11/21/18 12:45 Dose: 4 mg Oseltamivir Phosphate (Tamiflu Cap) 75 mg PO BID [facility]; Protocol Stop: 11/26/18 07:45 Last Admin: 11/21/18 17:20 Dose: 75 mg Oxycodone HCl (Oxycodone Immediate Release Tab) 5 mg PO Q4 PRN PRN Reason: Pain, severe (8-10) Last Admin: 11/21/18 15:06 Dose: 5 mg Polyethylene Glycol (Miralax) 17 gm PO BID [facility] Last Admin: 11/21/18 17:20 Dose: 17 gm - Labs Labs: 11/21/18 07:00 11/21/18 07:00 PT 14.4 SECONDS (9.4-12.5) H 11/18/18 11:30 INR 1.27 11/18/18 11:30 APTT 30.4 Seconds (26.9-38.3) 11/18/18 11:30 - Head Exam Head Exam: ATRAUMATIC - Eye Exam Eye Exam: Normal appearance - ENT Exam ENT Exam: Mucous Membranes Dry - Respiratory Exam Respiratory Exam: NORMAL BREATHING PATTERN - Cardiovascular Exam Cardiovascular Exam: +S1, +S2 - GI/Abdominal Exam GI & Abdominal Exam: Normal Bowel Sounds Assessment and Plan (1) Pancytopenia Assessment & Plan: secondary to chemotherapy and bone mets neutropenic fever; abx and neutropenic precautions one dose of growth factor today 2U PRBC today s/p Aranesp hold lovenox if plt < 50,000 Status: Acute (2) Back pain Assessment & Plan: s/p RFA and kyphoplasty to L3 pain meds with bowel regimen Status: Acute (3) Ovarian cancer Assessment & Plan: stage IV outpatient treatment Status: Acute
[2018-11-22 01:50] LABS: HEMOGLOBIN 9.6 g/dL (12.0-16.0)
[2018-11-22] MEDS: Sodium Chloride 0.9% 1,000 ML IV SCH ×2 (01:56→16:01)
[2018-11-22] MEDS: oxyCODONE 5 mg Immediate Release Tab PO PRN ×4 (01:57→20:29)
[2018-11-22 08:04] LABS: HEMOGLOBIN 9.3 g/dL (12.0-16.0); LYMPH # 0.3 (1.2-3.4); LYMPH % 19.1 % (22.0-35.0); MEAN CELL VOLUME 85.7 fl (80.0-105.0); MEAN CORPUSCULAR HEMOGLOBIN 27.7 pg (25.0-35.0); MEAN CORPUSCULAR HGB CONC 32.3 g/dl (31.0-37.0); MEAN PLATELET VOLUME 10.7 fl (7.0-11.0); MONO # 0.4 (0.1-0.6); MONO % 20.8 % (1.0-6.0); RBC 3.36 10^6/uL (3.5-6.1); RED CELL DISTRIBUTION WIDTH 18.7 % (11.5-14.5)
[2018-11-22 08:08] LABS: WHITE BLOOD COUNT 1.8 10^3/uL (4.5-11.0)
[2018-11-22 08:18] LABS: ALB/GLOB RATIO 0.9 (1.1-1.8); ALBUMIN 2.7 g/dL (3.0-4.8); ALT/SGPT 30 U/L (7-56); AST/SGOT 47 U/L (14-36); BLOOD UREA NITROGEN 10 mg/dL (7-21); CALCIUM 7.8 mg/dL (8.4-10.5); GFR NON-AFRICAN AMERICAN > 60
[2018-11-22] MEDS ORDERED: Potassium Chloride 20 mEq ER Tab PO STA (08:26)
--- NOTE | 2018-11-22 09:04 | CP.PCM.PN ---
<Genaro Waller - Last Filed: 11/22/18 15:33> Subjective - Date & Time of Evaluation Date of Evaluation: 11/22/18 Time of Evaluation: 09:04 - Subjective Subjective: PGY-1 Medicine Progress note for Dr. Zuniga Patient seen and examined at bedside. Patient had a Tmax of 101.2 yesterday. She did not have another fever overnight. She states that her pain is currently controlled. She is not complaining of back pain. She states that she had a bowel movement yesterday passing little amount of stool. Patient is complaining of some ulcers in her mouth. She denies fevers, chills, shortness of breath, chest pain, abdominal pain, nausea, vomiting, diarrhea, or urinary symptoms. Objective - Vital Signs/Intake and Output Vital Signs (last 24 hours): Temp Pulse Resp BP Pulse Ox 99 F 119 H 18 131/86 131 H 11/22/18 05:55 11/22/18 05:55 11/22/18 05:55 11/22/18 05:55 11/22/18 05:55 Intake and Output: 11/22/18 11/22/18 06:59 18:59 Intake Total 2360 Output Total 750 Balance 1610 - Medications Medications: Current Medications Acetaminophen (Tylenol 325mg Tab) 650 mg PO Q4 PRN PRN Reason: fever > 100.4 /mild pain (1-3) Enoxaparin Sodium (Lovenox) 40 mg SC DAILY [facility]; Protocol Last Admin: 11/21/18 10:04 Dose: 40 mg Folic Acid (Folic Acid) 1 mg PO DAILY [facility] Last Admin: 11/21/18 10:04 Dose: 1 mg Vancomycin HCl (Vancomycin 1gm) 1 gm in 250 mls @ 167 mls/hr IVPB DAILY [facility]; Protocol Last Admin: 11/21/18 10:03 Dose: 167 mls/hr Cefepime HCl (Maxipime 1gm) 1 gm in 100 mls @ 100 mls/hr IVPB Q12 [facility]; Protocol Last Admin: 11/21/18 21:28 Dose: 100 mls/hr Sodium Chloride (Sodium Chloride 0.9%) 1,000 mls @ 75 mls/hr IV .[id number] [facility] Last Admin: 11/22/18 01:56 Dose: 75 mls/hr Ketorolac Tromethamine (Toradol) 15 mg IVP Q6 PRN PRN Reason: Pain, Mild (1-3) Last Admin: 11/22/18 05:09 Dose: 15 mg Lidocaine (Lidoderm) 1 ea TD DAILY [facility] Last Admin: 11/21/18 10:03 Dose: 1 ea Morphine Sulfate (Morphine Extended Release Tab) 30 mg PO Q12 [facility] Last Admin: 11/21/18 21:27 Dose: 30 mg Ondansetron HCl (Zofran Inj) 4 mg IVP Q6H PRN PRN Reason: Nausea/Vomiting Last Admin: 11/21/18 12:45 Dose: 4 mg Oseltamivir Phosphate (Tamiflu Cap) 75 mg PO BID [facility]; Protocol Stop: 11/26/18 07:45 Last Admin: 11/21/18 17:20 Dose: 75 mg Oxycodone HCl (Oxycodone Immediate Release Tab) 5 mg PO Q4 PRN PRN Reason: Pain, severe (8-10) Last Admin: 11/22/18 07:46 Dose: 5 mg Polyethylene Glycol (Miralax) 17 gm PO BID [facility] Last Admin: 11/21/18 17:20 Dose: 17 gm - Labs Labs: 11/22/18 07:30 11/22/18 07:30 PT 14.4 SECONDS (9.4-12.5) H 11/18/18 11:30 INR 1.27 11/18/18 11:30 APTT 30.4 Seconds (26.9-38.3) 11/18/18 11:30 - Additional Findings Additional findings: - Constitutional Appears: Chronically Ill Additional comments: Comfortable, pain currently controlled - Head Exam Head Exam: ATRAUMATIC, NORMAL INSPECTION - Eye Exam Eye Exam: EOMI, Normal appearance - ENT Exam ENT Exam: Normal Oropharynx - Respiratory Exam Respiratory Exam: Clear to Auscultation Bilateral. absent: Rales, Rhonchi, Wheezes, Respiratory Distress - Cardiovascular Exam Cardiovascular Exam: Tachycardia, +S1, +S2. absent: Gallop, Rubs, Systolic Murmur - GI/Abdominal Exam GI & Abdominal Exam: Normal Bowel Sounds, Soft. absent: Distended, Guarding, Tenderness - Extremities Exam Extremities exam: Positive for: tenderness. No edema noted. 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 Patient is s/p RFA of L3 and kyphoplasty of L3 on 11/18. Plan: SIRS with Fever of unknown origin - Likely secondary to post-op vs underlying infection - Blood cultures: no growth to date - UA: moderate LE, few WBC - Urine culture contaminated - CTA chest: Negative for PE - CT abdomen/pelvis IV contrast: Multiple metastatic lesions to bases of lungs and bones. No evidence of disciitis osteomyelitis. - Vanc and Cefepime coverage - Tamiflu started empirically - Follow up EBV, CMV - Influenza negative - CXR: no acute disease - Continue to monitor Neutropenia, Thrombocytopenia - Likely 2/2 chemotherapy vs febrile neutropenia - Granix 480 mcg given - Neutropenic precautions - Continue to monitor Sinus tachycardia - Likely 2/2 pain vs fever - CTA chest: Negative for PE - EKG: Sinus tachycardia @ 135, no ST changes - LE Venous Dopplers: No DVT - Pain control with Toradol, Lidoderm, Morphine ER, and Oxycodone - Troponin: <0.01 X 3 Constipation - Patient had a small bowel movement yesterday - C/w Miralax BID - Received 2 doses of Relistor Apthous ulcers - Lidocaine 2% viscous - Daily multivitamins Normocytic anemia - Patient got 2 units of PRBC - Hb: 6.4-->9.3 - Heme-onc consulted, Dr. John Urban - anemia 2/2 chemotherapy and chronic disease from malignancy, s/p dose of Aranesp Intractable back pain- likely 2/2 to metastatic cancer - PET Scan (11/03): Pulmonary and osseous metastatic disease. Lytic lesion at L3 vertebral body with cortical disruption concerning for pathologic fracture. - MRI of Lumbar spine: Diffuse bony metastatic disease throughout the spine. No evidence of vertebral compression fracture or epidural invasion. Disc degeneration with foraminal stenosis at L5-S1 - Patient is s/p RFA of L3 and kyphoplasty of L3 on 11/18 - CA 125 elevated at 167 - Toradol 15mg IV Q6 PRN - Morphine 30 mg Q12 extended release - Oxycodone 5 q 4 PRN - Lidoderm patch - Zofran 4 mg q6h for nausea - Heme-Onc consulted, Dr. John Urban - IR consulted, Dr. Mao Lechuga - Continue to work with PT/OT Folate deficiency - Daily Folic acid supplementation Hypophosphatemia - Repleted with Neutraphos - Continue to monitor Propphylaxis: - Lovenox, SCDs. Hold LVX if PLT drop below 50 Disposition: PT recommended [facility], but patient refuses to go. Patient seen and case discussed with attending, Dr. Zuniga. Genaro Waller, PGY-1 <Marjorie Zuniga - Last Filed: 11/26/18 18:22> Objective - Vital Signs/Intake and Output Vital Signs (last 24 hours): Temp Pulse Resp BP Pulse Ox 99.1 F 84 18 102/55 L 94 L 11/24/18 16:24 11/25/18 17:32 11/25/18 17:32 11/25/18 17:32 11/25/18 17:32 - Labs Labs: 11/25/18 06:00 11/25/18 06:00 PT 14.4 SECONDS (9.4-12.5) H 11/18/18 11:30 INR 1.27 11/18/18 11:30 APTT 30.4 Seconds (26.9-38.3) 11/18/18 11:30 Attending/Attestation - Attestation I have personally seen and examined this patient.: Yes I have fully participated in the care of the patient.: Yes I have reviewed all pertinent clinical information, including history, physical exam and plan: Yes Notes (Text): 11/26/18 18:22 Medical record note made by the resident after discussion with my direction and input after the patient was personally seen and examined by me. I have reviewed the chart and agree that the record accurately reflects by personal performance of the history, physical exam, data review, and medical decision-making, in the course for the patient. I have also personally directed the plan of care.
[2018-11-22] MEDS: Enoxaparin 40 mg Syringe SC SCH (10:12)
[2018-11-22] MEDS: POLYETHYLENE GLYCOL 3350 17 GM/Dose PACKET PO SCH ×2 (10:12→17:47)
[2018-11-22] MEDS: Morphine 30 mg SR Tab PO SCH ×2 (10:13→22:20)
[2018-11-22] MEDS: Vancomycin 1gm in NS 250ml 1 GM/250 ML BAG IVPB SCH (10:13)
[2018-11-22] MEDS: Cefepime 1gm in NS 100ml 1 GM/100 ML BAG IVPB SCH ×2 (10:13→22:26)
[2018-11-22] MEDS: Lidocaine 5% Patch TD SCH (10:15)
[2018-11-22] MEDS ORDERED: Lidocaine 2% Viscous 100 ml PO PRN (12:24)
--- NOTE | 2018-11-22 14:44 | CP.PCM.PN ---
Subjective - Date & Time of Evaluation Date of Evaluation: 11/22/18 Time of Evaluation: 11:00 - Subjective Subjective: Complaining of low back pain, just took pain medication Objective - Vital Signs/Intake and Output Vital Signs (last 24 hours): Temp Pulse Resp BP Pulse Ox 98.7 F 111 H 19 133/84 131 H 11/22/18 12:00 11/22/18 12:00 11/22/18 12:00 11/22/18 12:00 11/22/18 05:55 Intake and Output: 11/22/18 11/22/18 06:59 18:59 Intake Total 2360 Output Total 750 Balance 1610 - Medications Medications: Current Medications Acetaminophen (Tylenol 325mg Tab) 650 mg PO Q4 PRN PRN Reason: fever > 100.4 /mild pain (1-3) Enoxaparin Sodium (Lovenox) 40 mg SC DAILY [facility]; Protocol Last Admin: 11/22/18 10:12 Dose: 40 mg Folic Acid (Folic Acid) 1 mg PO DAILY [facility] Last Admin: 11/22/18 10:13 Dose: 1 mg Vancomycin HCl (Vancomycin 1gm) 1 gm in 250 mls @ 167 mls/hr IVPB DAILY [facility]; Protocol Last Admin: 11/22/18 10:13 Dose: 167 mls/hr Cefepime HCl (Maxipime 1gm) 1 gm in 100 mls @ 100 mls/hr IVPB Q12 [facility]; Protocol Last Admin: 11/22/18 10:13 Dose: 100 mls/hr Sodium Chloride (Sodium Chloride 0.9%) 1,000 mls @ 75 mls/hr IV .[id number] [facility] Last Admin: 11/22/18 01:56 Dose: 75 mls/hr Ketorolac Tromethamine (Toradol) 15 mg IVP Q6 PRN PRN Reason: Pain, Mild (1-3) Last Admin: 11/22/18 13:49 Dose: 15 mg Lidocaine (Lidoderm) 1 ea TD DAILY [facility] Last Admin: 11/22/18 10:15 Dose: 1 ea Lidocaine HCl (Lidocaine 2% Viscous) 15 ml PO Q3H PRN PRN Reason: Pain, moderate (4-7) Morphine Sulfate (Morphine Extended Release Tab) 30 mg PO Q12 [facility] Last Admin: 11/22/18 10:13 Dose: 30 mg Multivitamins (Thera Tab) 1 tab PO DAILY [facility] Ondansetron HCl (Zofran Inj) 4 mg IVP Q6H PRN PRN Reason: Nausea/Vomiting Last Admin: 11/21/18 12:45 Dose: 4 mg Oseltamivir Phosphate (Tamiflu Cap) 75 mg PO BID [facility]; Protocol Stop: 11/26/18 07:45 Last Admin: 11/22/18 10:13 Dose: 75 mg Oxycodone HCl (Oxycodone Immediate Release Tab) 5 mg PO Q4 PRN PRN Reason: Pain, severe (8-10) Last Admin: 11/22/18 07:46 Dose: 5 mg Polyethylene Glycol (Miralax) 17 gm PO BID [facility] Last Admin: 11/22/18 10:12 Dose: 17 gm - Labs Labs: 11/22/18 07:30 11/22/18 07:30 PT 14.4 SECONDS (9.4-12.5) H 11/18/18 11:30 INR 1.27 11/18/18 11:30 APTT 30.4 Seconds (26.9-38.3) 11/18/18 11:30 - Constitutional Appears: No Acute Distress - Eye Exam Eye Exam: Normal appearance, PERRL - ENT Exam ENT Exam: Mucous Membranes Moist - Respiratory Exam Respiratory Exam: Clear to Ausculation Bilateral, NORMAL BREATHING PATTERN - Cardiovascular Exam Cardiovascular Exam: REGULAR RHYTHM, +S1, +S2 - GI/Abdominal Exam GI & Abdominal Exam: Soft, Normal Bowel Sounds - Extremities Exam Extremities Exam: Pedal Edema - Skin Skin Exam: Pallor, Warm Assessment and Plan - Assessment and Plan (Free Text) Assessment: 47 year old female with history of ovarian cancer who is admitted s/p ablation and L3 kyphoplasty. She is neutropenic secodnary to chemotherapy The patient is alert, oriented. States her pain is slightly better than it was before kyphoplasty procedure. Still requiring pain medication. She is on neutropenic precautions. She denies no other complaints. She is anxiously awaiting to be cleared for discharge home. She intends to continue treatment as an out patient under Dr. Urban services. Time spent with apit in goals of care discussion 20 minutes Plan: Goals of care Continue neutropenic precautions, GSF Pain management, bowel regimen as ordered F/u with oncologist as out [email or web address] Thank you for allowing me to participate in your patient care, will sign off
[2018-11-22] MEDS: Multivitamin Therapeutic Tab PO SCH ×2 (16:15→16:39)
--- NOTE | 2018-11-22 17:26 | CP.PCM.PN ---
Subjective - Date & Time of Evaluation Date of Evaluation: 11/22/18 Time of Evaluation: 15:45 - Subjective Subjective: Infectious Disease Follow Up: November 22, 2018 47 yo female with Ovarian cancer with mets to lung and bone presented with back pain. The patient has a history of chronic back pain. ID called into case as the patient became Leukopenic and developed fevers up to 102.1 F this morning. Patient received Chemotherapy 5 days prior to this hospitalization. Cultures negative to date. Noted outpatient PET CT scan suggested pathologic vertebral body fracture involving L-spine. Kyphoplasty was performed on 11/19/2018. Afebrile so far today with temperature up to 99.9 F. WBC increased slightly to 1.8. Blood cultures negative. Urine culture with multiple organisms... possibly contamination. Objective - Vital Signs/Intake and Output Vital Signs (last 24 hours): Temp Pulse Resp BP Pulse Ox 98.7 F 107 H 19 133/84 131 H 11/22/18 12:00 11/22/18 14:00 11/22/18 12:00 11/22/18 12:00 11/22/18 05:55 Intake and Output: 11/22/18 11/22/18 06:59 18:59 Intake Total 2360 Output Total 750 Balance 1610 - Medications Medications: Current Medications Acetaminophen (Tylenol 325mg Tab) 650 mg PO Q4 PRN PRN Reason: fever > 100.4 /mild pain (1-3) Enoxaparin Sodium (Lovenox) 40 mg SC DAILY [facility]; Protocol Last Admin: 11/22/18 10:12 Dose: 40 mg Folic Acid (Folic Acid) 1 mg PO DAILY [facility] Last Admin: 11/22/18 10:13 Dose: 1 mg Vancomycin HCl (Vancomycin 1gm) 1 gm in 250 mls @ 167 mls/hr IVPB DAILY [facility]; Protocol Last Admin: 11/22/18 10:13 Dose: 167 mls/hr Cefepime HCl (Maxipime 1gm) 1 gm in 100 mls @ 100 mls/hr IVPB Q12 [facility]; Protocol Last Admin: 11/22/18 10:13 Dose: 100 mls/hr Sodium Chloride (Sodium Chloride 0.9%) 1,000 mls @ 75 mls/hr IV .[id number] [facility] Last Admin: 11/22/18 16:01 Dose: Not Given Ketorolac Tromethamine (Toradol) 15 mg IVP Q6 PRN PRN Reason: Pain, Mild (1-3) Last Admin: 11/22/18 13:49 Dose: 15 mg Lidocaine (Lidoderm) 1 ea TD DAILY [facility] Last Admin: 11/22/18 10:15 Dose: 1 ea Lidocaine HCl (Lidocaine 2% Viscous) 15 ml PO Q3H PRN PRN Reason: Pain, moderate (4-7) Last Admin: 11/22/18 16:15 Dose: 15 ml Morphine Sulfate (Morphine Extended Release Tab) 30 mg PO Q12 [facility] Last Admin: 11/22/18 10:13 Dose: 30 mg Multivitamins (Thera Tab) 1 tab PO DAILY [facility] Last Admin: 11/22/18 16:39 Dose: Not Given Ondansetron HCl (Zofran Inj) 4 mg IVP Q6H PRN PRN Reason: Nausea/Vomiting Last Admin: 11/21/18 12:45 Dose: 4 mg Oseltamivir Phosphate (Tamiflu Cap) 75 mg PO BID [facility]; Protocol Stop: 11/26/18 07:45 Last Admin: 11/22/18 10:13 Dose: 75 mg Oxycodone HCl (Oxycodone Immediate Release Tab) 5 mg PO Q4 PRN PRN Reason: Pain, severe (8-10) Last Admin: 11/22/18 16:15 Dose: 5 mg Polyethylene Glycol (Miralax) 17 gm PO BID [facility] Last Admin: 11/22/18 10:12 Dose: 17 gm - Labs Labs: 11/22/18 07:30 11/22/18 07:30 PT 14.4 SECONDS (9.4-12.5) H 11/18/18 11:30 INR 1.27 11/18/18 11:30 APTT 30.4 Seconds (26.9-38.3) 11/18/18 11:30 - Constitutional Appears: Non-toxic, No Acute Distress, Chronically Ill - Head Exam Head Exam: ATRAUMATIC, NORMOCEPHALIC - Eye Exam Eye Exam: EOMI, PERRL Pupil Exam: NORMAL ACCOMODATION, PERRL - ENT Exam ENT Exam: Mucous Membranes Moist, Normal External Ear Exam, TM's Normal Bilaterally - Neck Exam Neck Exam: Full ROM, Normal Inspection - Respiratory Exam Respiratory Exam: Clear to Ausculation Bilateral, NORMAL BREATHING PATTERN. absent: Rales, Rhonchi, Wheezes - Cardiovascular Exam Cardiovascular Exam: REGULAR RHYTHM, RRR, +S1, +S2 - GI/Abdominal Exam GI & Abdominal Exam: Soft, Normal Bowel Sounds. absent: Distended, Tenderness - Extremities Exam Extremities Exam: Full ROM, Normal Inspection - Neurological Exam Neurological Exam: Alert, Awake, CN II-XII Intact, Oriented x3 - Psychiatric Exam Psychiatric exam: Normal Affect, Normal Mood - Skin Skin Exam: Intact, Normal Color Assessment and Plan - Assessment and Plan (Free Text) Assessment: 47 yo female with metastatic (stage 4) Ovarian cancer to bone and lungs with chronic severe back pain. Had PET CT suggestive of Pathologic Vertebral Body fracture of the L-spine. Kyphoplasty done on 11/18/2018. The patient with fevers up to 102.1 F yesterday AM. Leukopenia noted as well. Check for Influenza and other viruses such as CMV and EBV. Start Tamiflu for now. Leukopenia and fevers can be secondary to recent Kyphoplasty surgery as well. Send belcher cultures for evaluation. Currently on Cefepime and Vancomycin IV for antibiotic coverage which is a good starting point. Tmax on 11/20/2018 was 103.0 F. Afebrile so far today with temperature up to 99.9 F. CMV and EBV ordered for the AM. Influenza testing was negative. Cultures negative to date regarding blood cultures. Thank you for allowing me to participate in the care of the patient, we will follow with you.
[2018-11-23] MEDS: Morphine 30 mg SR Tab PO SCH ×3 (02:34→21:37)
[2018-11-23 06:40] LABS: EOS % 0.5 % (1.5-5.0); HEMOGLOBIN 9.2 g/dL (12.0-16.0); LYMPH # 0.4 (1.2-3.4); LYMPH % 17.9 % (22.0-35.0); MEAN CELL VOLUME 86.4 fl (80.0-105.0); MEAN CORPUSCULAR HEMOGLOBIN 27.1 pg (25.0-35.0); MEAN CORPUSCULAR HGB CONC 31.4 g/dl (31.0-37.0); MONO # 0.5 (0.1-0.6); MONO % 23.6 % (1.0-6.0); PLATELET COUNT 93 10^3/uL (120.0-450.0); RBC 3.39 10^6/uL (3.5-6.1); RED CELL DISTRIBUTION WIDTH 19.1 % (11.5-14.5); WHITE BLOOD COUNT 2.1 10^3/uL (4.5-11.0)
[2018-11-23 06:54] LABS: ALB/GLOB RATIO 0.9 (1.1-1.8); ALBUMIN 2.6 g/dL (3.0-4.8); ALT/SGPT 42 U/L (7-56); AST/SGOT 61 U/L (14-36); BLOOD UREA NITROGEN 11 mg/dL (7-21); GFR NON-AFRICAN AMERICAN > 60
[2018-11-23] MEDS ORDERED: Potassium Chloride 20 mEq ER Tab PO ONE (06:59)
[2018-11-23] MEDS: Multivitamin Therapeutic Tab PO SCH (09:24)
[2018-11-23] MEDS: Lidocaine 5% Patch TD SCH (09:25)
[2018-11-23] MEDS: POLYETHYLENE GLYCOL 3350 17 GM/Dose PACKET PO SCH ×2 (09:25→18:32)
[2018-11-23] MEDS: Vancomycin 1gm in NS 250ml 1 GM/250 ML BAG IVPB SCH (09:25)
[2018-11-23] MEDS: Cefepime 1gm in NS 100ml 1 GM/100 ML BAG IVPB SCH ×2 (09:25→21:35)
[2018-11-23] MEDS: Sodium Chloride 0.9% 1,000 ML IV SCH (09:26)
[2018-11-23] MEDS: Enoxaparin 40 mg Syringe SC SCH (09:30)
--- NOTE | 2018-11-23 11:54 | CP.PCM.PN ---
<Genaro Waller - Last Filed: 11/23/18 11:50> Subjective - Date & Time of Evaluation Date of Evaluation: 11/23/18 Time of Evaluation: 11:51 - Subjective Subjective: PGY-1 Medicine Progress note for Dr. Zuniga Patient seen and examined at bedside. Patient had a Tmax of 100.9 yesterday. She did not have another fever overnight. She is complaining of lower back pain 03/19. She denies fevers, chills, shortness of breath, chest pain, abdominal pain, nausea, vomiting, diarrhea, or urinary symptoms. Objective - Vital Signs/Intake and Output Vital Signs (last 24 hours): Temp Pulse Resp BP Pulse Ox 97.8 F 103 H 20 140/91 H 131 H 11/23/18 05:57 11/23/18 05:57 11/23/18 05:57 11/23/18 05:57 11/22/18 05:55 Intake and Output: 11/23/18 11/23/18 06:59 18:59 Intake Total 1310 Output Total 800 Balance 510 - Medications Medications: Current Medications Acetaminophen (Tylenol 325mg Tab) 650 mg PO Q4 PRN PRN Reason: fever > 100.4 /mild pain (1-3) Last Admin: 11/22/18 17:50 Dose: 650 mg Enoxaparin Sodium (Lovenox) 40 mg SC DAILY [facility]; Protocol Last Admin: 11/23/18 09:30 Dose: Not Given Folic Acid (Folic Acid) 1 mg PO DAILY [facility] Last Admin: 11/23/18 09:25 Dose: 1 mg Vancomycin HCl (Vancomycin 1gm) 1 gm in 250 mls @ 167 mls/hr IVPB DAILY [facility]; Pr otocol Last Admin: 11/23/18 09:25 Dose: 167 mls/hr Cefepime HCl (Maxipime 1gm) 1 gm in 100 mls @ 100 mls/hr IVPB Q12 [facility]; Protocol Last Admin: 11/23/18 09:25 Dose: 100 mls/hr Sodium Chloride (Sodium Chloride 0.9%) 1,000 mls @ 75 mls/hr IV .[id number] [facility] Last Admin: 11/23/18 09:26 Dose: 75 mls/hr Ketorolac Tromethamine (Toradol) 15 mg IVP Q6 PRN PRN Reason: Pain, Mild (1-3) Last Admin: 11/23/18 10:42 Dose: 15 mg Lidocaine (Lidoderm) 1 ea TD DAILY [facility] Last Admin: 11/23/18 09:25 Dose: 1 ea Lidocaine HCl (Lidocaine 2% Viscous) 15 ml PO Q3H PRN PRN Reason: Pain, moderate (4-7) Last Admin: 11/22/18 16:15 Dose: 15 ml Morphine Sulfate (Morphine Extended Release Tab) 30 mg PO Q12 [facility] Last Admin: 11/23/18 09:24 Dose: 30 mg Multivitamins (Thera Tab) 1 tab PO DAILY [facility] Last Admin: 11/23/18 09:24 Dose: Not Given Ondansetron HCl (Zofran Inj) 4 mg IVP Q6H PRN PRN Reason: Nausea/Vomiting Last Admin: 11/21/18 12:45 Dose: 4 mg Oseltamivir Phosphate (Tamiflu Cap) 75 mg PO BID [facility]; Protocol Stop: 11/26/18 07:45 Last Admin: 11/23/18 09:24 Dose: 75 mg Oxycodone HCl (Oxycodone Immediate Release Tab) 5 mg PO Q4 PRN PRN Reason: Pain, severe (8-10) Last Admin: 11/22/18 20:29 Dose: 5 mg Polyethylene Glycol (Miralax) 17 gm PO BID [facility] Last Admin: 11/23/18 09:25 Dose: 17 gm - Labs Labs: 11/23/18 06:15 11/23/18 06:15 PT 14.4 SECONDS (9.4-12.5) H 11/18/18 11:30 INR 1.27 11/18/18 11:30 APTT 30.4 Seconds (26.9-38.3) 11/18/18 11:30 - Additional Findings Additional findings: - Constitutional Appears: Chronically Ill, not in distress - Head Exam Head Exam: ATRAUMATIC, NORMAL INSPECTION - Eye Exam Eye Exam: EOMI, Normal appearance - ENT Exam ENT Exam: Normal Oropharynx Some apthous ulcers noted on the sides of mouth and bottom inner lip - Respiratory Exam Respiratory Exam: Clear to Auscultation Bilateral. absent: Rales, Rhonchi, Wheezes, Respiratory Distress - Cardiovascular Exam Cardiovascular Exam: Tachycardia, +S1, +S2. absent: Gallop, Rubs, Systolic Murmur - GI/Abdominal Exam GI & Abdominal Exam: Normal Bowel Sounds, Soft. absent: Distended, Guarding, Tenderness - Extremities Exam Extremities exam: Positive for: tenderness. No edema noted. 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 Patient is s/p RFA of L3 and kyphoplasty of L3 on 11/18. Plan: Neutropenic fever - Likely secondary to chemotherapy, r/o infectious etiologies - Blood cultures: no growth to date - UA: moderate LE, few WBC - Urine culture contaminated - CT abdomen/pelvis IV contrast: Multiple metastatic lesions to bases of lungs and bones. No evidence of disciitis osteomyelitis. - CXR: no acute disease - Vanc and Cefepime coverage - Tamiflu started empirically - Follow up EBV, CMV - Influenza negative - Granix 480 mcg given - Abs neutrophils: 1070-->1230 - Neutropenic precautions discontinued - ID consulted, Dr. Joyce Sinus tachycardia - Likely 2/2 pain vs fever - CTA chest: Negative for PE - EKG: Sinus tachycardia @ 135, no ST changes - LE Venous Dopplers: No DVT - Pain control with Toradol, Lidoderm, Morphine ER, and Oxycodone - Troponin: <0.01 X 3 Constipation - C/w Miralax BID - Received 2 doses of Relistor Apthous ulcers - Lidocaine 2% viscous - Daily multivitamins Normocytic anemia - Patient got 2 units of PRBC - Heme-onc consulted, Dr. John Urban - anemia 2/2 chemotherapy and chronic disease from malignancy, s/p dose of Aranesp - Continue to monitor H&H Intractable back pain- likely 2/2 to metastatic cancer - PET Scan (11/03): Pulmonary and osseous metastatic disease. Lytic lesion at L3 vertebral body with cortical disruption concerning for pathologic fracture. - MRI of Lumbar spine: Diffuse bony metastatic disease throughout the spine. No evidence of vertebral compression fracture or epidural invasion. Disc degen eration with foraminal stenosis at L5-S1 - Patient is s/p RFA of L3 and kyphoplasty of L3 on 11/18 - CA 125 elevated at 167 - Toradol 15mg IV Q6 PRN - Morphine 30 mg Q12 extended release - Oxycodone 5 q 4 PRN - Lidoderm patch - Zofran 4 mg q6h for nausea - Heme-Onc consulted, Dr. John Urban - IR consulted, Dr. Mao Lechuga - Continue to work with PT/OT Folate deficiency - Daily Folic acid supplementation Propphylaxis: - Lovenox, SCDs. Hold LVX if PLT drop below 50 Disposition: PT recommended [facility], but patient refuses to go. Patient seen and case discussed with attending, Dr. Zuniga. Genaro Waller, PGY-1 <Marjorie Zuniga - Last Filed: 11/26/18 18:22> Objective - Vital Signs/Intake and Output Vital Signs (last 24 hours): Temp Pulse Resp BP Pulse Ox 99.1 F 84 18 102/55 L 94 L 11/24/18 16:24 11/25/18 17:32 11/25/18 17:32 11/25/18 17:32 11/25/18 17:32 - Labs Labs: 11/25/18 06:00 11/25/18 06:00 PT 14.4 SECONDS (9.4-12.5) H 11/18/18 11:30 INR 1.27 11/18/18 11:30 APTT 30.4 Seconds (26.9-38.3) 11/18/18 11:30 Attending/Attestation - Attestation I have personally seen and examined this patient.: Yes I have fully participated in the care of the patient.: Yes I have reviewed all pertinent clinical information, including history, physical exam and plan: Yes Notes (Text): 11/26/18 18:22 Medical record note made by the resident after discussion with my direction and input after the patient was personally seen and examined by me. I have reviewed the chart and agree that the record accurately reflects by personal performance of the history, physical exam, data review, and medical decision-making, in the course for the patient. I have also personally directed the plan of care.
[2018-11-23] MEDS: oxyCODONE 5 mg Immediate Release Tab PO PRN ×2 (14:10→18:37)
--- NOTE | 2018-11-23 16:54 | CP.PCM.PN ---
Subjective - Date & Time of Evaluation Date of Evaluation: 11/23/18 Time of Evaluation: 15:15 - Subjective Subjective: Infectious Disease Follow Up: November 23, 2018 47 yo female with Ovarian cancer with mets to lung and bone presented with back pain. The patient has a history of chronic back pain. ID called into case as the patient became Leukopenic and developed fevers up to 102.1 F this morning. Patient received Chemotherapy 5 days prior to this hospitalization. Cultures negative to date. Noted outpatient PET CT scan suggested pathologic vertebral body fracture involving L-spine. Kyphoplasty was performed on 11/19/2018. Fever of 100.9 F last night. Afebrile so far today. WBC increased slightly to 2.1 from 1.8. Blood cultures negative. Urine culture with multiple organisms... possibly contamination. Patient's complaint is of back pain right now. Objective - Vital Signs/Intake and Output Vital Signs (last 24 hours): Temp Pulse Resp BP Pulse Ox 98.4 F 100 H 20 130/83 131 H 11/23/18 12:00 11/23/18 12:00 11/23/18 12:00 11/23/18 12:00 11/22/18 05:55 Intake and Output: 11/23/18 11/23/18 06:59 18:59 Intake Total 1310 Output Total 800 Balance 510 - Medications Medications: Current Medications Acetaminophen (Tylenol 325mg Tab) 650 mg PO Q4 PRN PRN Reason: fever > 100.4 /mild pain (1-3) Last Admin: 11/22/18 17:50 Dose: 650 mg Enoxaparin Sodium (Lovenox) 40 mg SC DAILY [facility]; Protocol Last Admin: 11/23/18 09:30 Dose: Not Given Folic Acid (Folic Acid) 1 mg PO DAILY [facility] Last Admin: 11/23/18 09:25 Dose: 1 mg Vancomycin HCl (Vancomycin 1gm) 1 gm in 250 mls @ 167 mls/hr IVPB DAILY [facility]; Protocol Last Admin: 11/23/18 09:25 Dose: 167 mls/hr Cefepime HCl (Maxipime 1gm) 1 gm in 100 mls @ 100 mls/hr IVPB Q12 [facility]; Protocol Last Admin: 11/23/18 09:25 Dose: 100 mls/hr Sodium Chloride (Sodium Chloride 0.9%) 1,000 mls @ 75 mls/hr IV .[id number] [facility] Last Admin: 11/23/18 09:26 Dose: 75 mls/hr Ketorolac Tromethamine (Toradol) 15 mg IVP Q6 PRN PRN Reason: Pain, Mild (1-3) Last Admin: 11/23/18 16:12 Dose: 15 mg Lidocaine (Lidoderm) 1 ea TD DAILY [facility] Last Admin: 11/23/18 09:25 Dose: 1 ea Lidocaine HCl (Lidocaine 2% Viscous) 15 ml PO Q3H PRN PRN Reason: Pain, moderate (4-7) Last Admin: 11/22/18 16:15 Dose: 15 ml Morphine Sulfate (Morphine Extended Release Tab) 30 mg PO Q12 [facility] Last Admin: 11/23/18 09:24 Dose: 30 mg Multivitamins (Thera Tab) 1 tab PO DAILY [facility] Last Admin: 11/23/18 09:24 Dose: Not Given Ondansetron HCl (Zofran Inj) 4 mg IVP Q6H PRN PRN Reason: Nausea/Vomiting Last Admin: 11/21/18 12:45 Dose: 4 mg Oseltamivir Phosphate (Tamiflu Cap) 75 mg PO BID [facility]; Protocol Stop: 11/26/18 07:45 Last Admin: 11/23/18 09:24 Dose: 75 mg Oxycodone HCl (Oxycodone Immediate Release Tab) 5 mg PO Q4 PRN PRN Reason: Pain, severe (8-10) Last Admin: 11/23/18 14:10 Dose: 5 mg Polyethylene Glycol (Miralax) 17 gm PO BID [facility] Last Admin: 11/23/18 09:25 Dose: 17 gm - Labs Labs: 11/23/18 06:15 11/23/18 06:15 PT 14.4 SECONDS (9.4-12.5) H 11/18/18 11:30 INR 1.27 11/18/18 11:30 APTT 30.4 Seconds (26.9-38.3) 11/18/18 11:30 - Constitutional Appears: Non-toxic, No Acute Distress, Chronically Ill - Head Exam Head Exam: ATRAUMATIC, NORMOCEPHALIC - Eye Exam Eye Exam: EOMI, PERRL Pupil Exam: NORMAL ACCOMODATION, PERRL - ENT Exam ENT Exam: Mucous Membranes Moist, Normal External Ear Exam, TM's Normal Bilaterally - Neck Exam Neck Exam: Full ROM, Normal Inspection - Respiratory Exam Respiratory Exam: Clear to Ausculation Bilateral, NORMAL BREATHING PATTERN. absent: Rales, Rhonchi, Wheezes - Cardiovascular Exam Cardiovascular Exam: REGULAR RHYTHM, RRR, +S1, +S2 - GI/Abdominal Exam GI & Abdominal Exam: Soft, Normal Bowel Sounds. absent: Distended, Tenderness - Extremities Exam Extremities Exam: Full ROM, Normal Inspection - Neurological Exam Neurological Exam: Alert, Awake, CN II-XII Intact, Oriented x3 - Psychiatric Exam Psychiatric exam: Normal Affect, Normal Mood - Skin Skin Exam: Intact, Normal Color Assessment and Plan - Assessment and Plan (Free Text) Assessment: 47 yo female with metastatic (stage 4) Ovarian cancer to bone and lungs with chronic severe back pain. Had PET CT suggestive of Pathologic Vertebral Body fracture of the L-spine. Kyphoplasty done on 11/18/2018. The patient with fevers up to 102.1 F yesterday AM. Leukopenia noted as well. Check for Influenza and other viruses such as CMV and EBV. Start Tamiflu for now. Leukopenia and fevers can be secondary to recent Kyphoplasty surgery as well. Send belcher cultures for evaluation. Currently on Cefepime and Vancomycin IV for antibiotic coverage which is a good starting point. Tmax on 11/20/2018 was 103.0 F. Afebrile so far today but temperature of 100.9 F last night. CMV and EBV ordered for the AM. Influenza testing was negative. Cultures negative to date regarding blood cultures. Can consider stopping Vancomycin today. Thank you for allowing me to participate in the care of the patient, we will follow with you.
--- NOTE | 2018-11-23 21:47 | CP.PCM.PN ---
Subjective - Date & Time of Evaluation Date of Evaluation: 11/22/18 Time of Evaluation: 19:00 - Subjective Subjective: No complaints. Objective - Vital Signs/Intake and Output Vital Signs (last 24 hours): Temp Pulse Resp BP Pulse Ox 98.4 F 90 20 144/96 H 97 11/23/18 16:57 11/23/18 16:57 11/23/18 16:57 11/23/18 16:57 11/23/18 16:57 - Medications Medications: Current Medications Acetaminophen (Tylenol 325mg Tab) 650 mg PO Q4 PRN PRN Reason: fever > 100.4 /mild pain (1-3) Last Admin: 11/22/18 17:50 Dose: 650 mg Enoxaparin Sodium (Lovenox) 40 mg SC DAILY [facility]; Protocol Last Admin: 11/23/18 09:30 Dose: Not Given Folic Acid (Folic Acid) 1 mg PO DAILY [facility] Last Admin: 11/23/18 09:25 Dose: 1 mg Cefepime HCl (Maxipime 1gm) 1 gm in 100 mls @ 100 mls/hr IVPB Q12 [facility]; Protocol Last Admin: 11/23/18 21:35 Dose: 100 mls/hr Sodium Chloride (Sodium Chloride 0.9%) 1,000 mls @ 75 mls/hr IV .[id number] [facility] Last Admin: 11/23/18 09:26 Dose: 75 mls/hr Ketorolac Tromethamine (Toradol) 15 mg IVP Q6 PRN PRN Reason: Pain, Mild (1-3) Last Admin: 11/23/18 16:12 Dose: 15 mg Lidocaine (Lidoderm) 1 ea TD DAILY [facility] Last Admin: 11/23/18 09:25 Dose: 1 ea Lidocaine HCl (Lidocaine 2% Viscous) 15 ml PO Q3H PRN PRN Reason: Pain, moderate (4-7) Last Admin: 11/22/18 16:15 Dose: 15 ml Morphine Sulfate (Morphine Extended Release Tab) 30 mg PO Q12 [facility] Last Admin: 11/23/18 21:37 Dose: 30 mg Multivitamins (Thera Tab) 1 tab PO DAILY [facility] Last Admin: 11/23/18 09:24 Dose: Not Given Ondansetron HCl (Zofran Inj) 4 mg IVP Q6H PRN PRN Reason: Nausea/Vomiting Last Admin: 11/21/18 12:45 Dose: 4 mg Oseltamivir Phosphate (Tamiflu Cap) 75 mg PO BID [facility]; Protocol Stop: 11/26/18 07:45 Last Admin: 11/23/18 18:37 Dose: 75 mg Oxycodone HCl (Oxycodone Immediate Release Tab) 5 mg PO Q4 PRN PRN Reason: Pain, severe (8-10) Last Admin: 11/23/18 18:37 Dose: 5 mg Polyethylene Glycol (Miralax) 17 gm PO BID [facility] Last Admin: 11/23/18 18:32 Dose: Not Given - Labs Labs: 11/23/18 06:15 11/23/18 06:15 PT 14.4 SECONDS (9.4-12.5) H 11/18/18 11:30 INR 1.27 11/18/18 11:30 APTT 30.4 Seconds (26.9-38.3) 11/18/18 11:30 - Head Exam Head Exam: ATRAUMATIC - Eye Exam Eye Exam: Normal appearance - ENT Exam ENT Exam: Mucous Membranes Dry - Respiratory Exam Respiratory Exam: NORMAL BREATHING PATTERN - Cardiovascular Exam Cardiovascular Exam: +S1, +S2 - GI/Abdominal Exam GI & Abdominal Exam: Normal Bowel Sounds Assessment and Plan (1) Pancytopenia Assessment & Plan: secondary to chemotherapy and bone mets neutropenic fever; abx and neutropenic precautions s/p growth factor and PRBC transfusion Status: Acute (2) Back pain Assessment & Plan: s/p RFA and kyphoplasty to L3 pain meds with bowel regimen Status: Acute (3) Ovarian cancer Assessment & Plan: stage IV outpatient treatment Status: Acute
--- NOTE | 2018-11-23 21:48 | CP.PCM.PN ---
Subjective - Date & Time of Evaluation Date of Evaluation: 11/23/18 Time of Evaluation: 20:00 - Subjective Subjective: Had small BM but feels more distended, requesting enema Objective - Vital Signs/Intake and Output Vital Signs (last 24 hours): Temp Pulse Resp BP Pulse Ox 98.4 F 90 20 144/96 H 97 11/23/18 16:57 11/23/18 16:57 11/23/18 16:57 11/23/18 16:57 11/23/18 16:57 Intake and Output: 11/23/18 11/24/18 18:59 06:59 Intake Total 500 Output Total 500 Balance 0 - Medications Medications: Current Medications Acetaminophen (Tylenol 325mg Tab) 650 mg PO Q4 PRN PRN Reason: fever > 100.4 /mild pain (1-3) Last Admin: 11/22/18 17:50 Dose: 650 mg Enoxaparin Sodium (Lovenox) 40 mg SC DAILY [facility]; Protocol Last Admin: 11/23/18 09:30 Dose: Not Given Folic Acid (Folic Acid) 1 mg PO DAILY [facility] Last Admin: 11/23/18 09:25 Dose: 1 mg Cefepime HCl (Maxipime 1gm) 1 gm in 100 mls @ 100 mls/hr IVPB Q12 [facility]; Protocol Last Admin: 11/23/18 21:35 Dose: 100 mls/hr Sodium Chloride (Sodium Chloride 0.9%) 1,000 mls @ 75 mls/hr IV .[id number] [facility] Last Admin: 11/23/18 09:26 Dose: 75 mls/hr Ketorolac Tromethamine (Toradol) 15 mg IVP Q6 PRN PRN Reason: Pain, Mild (1-3) Last Admin: 11/23/18 16:12 Dose: 15 mg Lidocaine (Lidoderm) 1 ea TD DAILY [facility] Last Admin: 11/23/18 09:25 Dose: 1 ea Lidocaine HCl (Lidocaine 2% Viscous) 15 ml PO Q3H PRN PRN Reason: Pain, moderate (4-7) Last Admin: 11/22/18 16:15 Dose: 15 ml Morphine Sulfate (Morphine Extended Release Tab) 30 mg PO Q12 [facility] Last Admin: 11/23/18 21:37 Dose: 30 mg Multivitamins (Thera Tab) 1 tab PO DAILY [facility] Last Admin: 11/23/18 09:24 Dose: Not Given Ondansetron HCl (Zofran Inj) 4 mg IVP Q6H PRN PRN Reason: Nausea/Vomiting Last Admin: 11/21/18 12:45 Dose: 4 mg Oseltamivir Phosphate (Tamiflu Cap) 75 mg PO BID [facility]; Protocol Stop: 11/26/18 07:45 Last Admin: 11/23/18 18:37 Dose: 75 mg Oxycodone HCl (Oxycodone Immediate Release Tab) 5 mg PO Q4 PRN PRN Reason: Pain, severe (8-10) Last Admin: 11/23/18 18:37 Dose: 5 mg Polyethylene Glycol (Miralax) 17 gm PO BID [facility] Last Admin: 11/23/18 18:32 Dose: Not Given - Labs Labs: 11/23/18 06:15 11/23/18 06:15 PT 14.4 SECONDS (9.4-12.5) H 11/18/18 11:30 INR 1.27 11/18/18 11:30 APTT 30.4 Seconds (26.9-38.3) 11/18/18 11:30 - Head Exam Head Exam: ATRAUMATIC - Eye Exam Eye Exam: Normal appearance - ENT Exam ENT Exam: Mucous Membranes Dry - Respiratory Exam Respiratory Exam: NORMAL BREATHING PATTERN - Cardiovascular Exam Cardiovascular Exam: +S1, +S2 - GI/Abdominal Exam GI & Abdominal Exam: Normal Bowel Sounds Assessment and Plan (1) Pancytopenia Assessment & Plan: secondary to chemotherapy and bone mets neutropenic fever; abx and neutropenic precautions s/p growth factor and transfusion support Status: Acute (2) Back pain Assessment & Plan: s/p RFA and kyphoplasty to L3 pain meds with bowel regimen Status: Acute (3) Ovarian cancer Assessment & Plan: stage IV outpatient treatment Status: Acute
[2018-11-24] MEDS: oxyCODONE 5 mg Immediate Release Tab PO PRN ×4 (01:23→21:38)
[2018-11-24] MEDS: Sodium Chloride 0.9% 1,000 ML IV SCH ×2 (05:11→21:42)
[2018-11-24 07:08] LABS: BASO # 0.01 K/mm3 (0.0-2.0); BASO % 0.3 % (0.0-3.0); HEMOGLOBIN 9.5 g/dL (12.0-16.0); LYMPH # 0.4 (1.2-3.4); LYMPH % 13.3 % (22.0-35.0); MEAN CELL VOLUME 86.6 fl (80.0-105.0); MEAN CORPUSCULAR HEMOGLOBIN 27.1 pg (25.0-35.0); MEAN CORPUSCULAR HGB CONC 31.4 g/dl (31.0-37.0); MEAN PLATELET VOLUME 10.7 fl (7.0-11.0); MONO # 0.7 (0.1-0.6); MONO % 23.8 % (1.0-6.0); RBC 3.5 10^6/uL (3.5-6.1); RED CELL DISTRIBUTION WIDTH 19.1 % (11.5-14.5); WHITE BLOOD COUNT 2.9 10^3/uL (4.5-11.0)
[2018-11-24 08:09] LABS: ALB/GLOB RATIO 0.9 (1.1-1.8); ALBUMIN 2.7 g/dL (3.0-4.8); ALT/SGPT 35 U/L (7-56); AST/SGOT 57 U/L (14-36); BLOOD UREA NITROGEN 6 mg/dL (7-21); GFR NON-AFRICAN AMERICAN > 60
[2018-11-24] MEDS ORDERED: Magnesium Sulfate 2 gm/50 ml 2 GM/50 ML BAG IVPB ONE (09:01)
[2018-11-24] MEDS: Morphine 30 mg SR Tab PO SCH ×2 (09:44→21:39)
[2018-11-24] MEDS: Multivitamin Therapeutic Tab PO SCH (11:23)
[2018-11-24] MEDS: POLYETHYLENE GLYCOL 3350 17 GM/Dose PACKET PO SCH ×2 (11:31→17:24)
[2018-11-24] MEDS: Enoxaparin 40 mg Syringe SC SCH (11:31)
[2018-11-24] MEDS: Lidocaine 5% Patch TD SCH (14:35)
--- NOTE | 2018-11-24 15:53 | CP.PCM.PN ---
Subjective - Date & Time of Evaluation Date of Evaluation: 11/24/18 Time of Evaluation: 15:00 - Subjective Subjective: Infectious Disease Follow Up: November 24, 2018 47 yo female with Ovarian cancer with mets to lung and bone presented with back pain. The patient has a history of chronic back pain. ID called into case as the patient became Leukopenic and developed fevers up to 102.1 F this morning. Patient received Chemotherapy 5 days prior to this hospitalization. Cultures negative to date. Noted outpatient PET CT scan suggested pathologic vertebral body fracture involving L-spine. Kyphoplasty was performed on 11/19/2018. Afebrile for the last 48 hours now. WBC increased slightly to 2.8. Blood cultures negative. Urine culture with multiple organisms... possibly contamination. Patient's complaint is of back pain right now. Objective - Vital Signs/Intake and Output Vital Signs (last 24 hours): Temp Pulse Resp BP Pulse Ox 98.5 F 98 H 20 143/95 H 98 11/24/18 06:00 11/24/18 06:00 11/24/18 06:00 11/24/18 06:00 11/24/18 06:00 Intake and Output: 11/24/18 11/24/18 06:59 18:59 Intake Total 740 Output Total 1200 Balance -460 - Medications Medications: Current Medications Acetaminophen (Tylenol 325mg Tab) 650 mg PO Q4 PRN PRN Reason: fever > 100.4 /mild pain (1-3) Last Admin: 11/22/18 17:50 Dose: 650 mg Enoxaparin Sodium (Lovenox) 40 mg SC DAILY [facility]; Protocol Last Admin: 11/24/18 11:31 Dose: Not Given Folic Acid (Folic Acid) 1 mg PO DAILY [facility] Last Admin: 11/24/18 11:23 Dose: 1 mg Cefepime HCl (Maxipime 1gm) 1 gm in 100 mls @ 100 mls/hr IVPB Q12 [facility]; Protocol Last Admin: 11/23/18 21:35 Dose: 100 mls/hr Sodium Chloride (Sodium Chloride 0.9%) 1,000 mls @ 75 mls/hr IV .[id number] [facility] Last Admin: 11/24/18 05:11 Dose: 75 mls/hr Ketorolac Tromethamine (Toradol) 15 mg IVP Q6 PRN PRN Reason: Pain, Mild (1-3) Last Admin: 11/24/18 11:21 Dose: 15 mg Lidocaine (Lidoderm) 1 ea TD DAILY [facility] Last Admin: 11/24/18 14:35 Dose: 1 ea Lidocaine HCl (Lidocaine 2% Viscous) 15 ml PO Q3H PRN PRN Reason: Pain, moderate (4-7) Last Admin: 11/22/18 16:15 Dose: 15 ml Morphine Sulfate (Morphine Extended Release Tab) 30 mg PO Q12 [facility] Last Admin: 11/24/18 09:44 Dose: 30 mg Multivitamins (Thera Tab) 1 tab PO DAILY [facility] Last Admin: 11/24/18 11:23 Dose: 1 tab Ondansetron HCl (Zofran Inj) 4 mg IVP Q6H PRN PRN Reason: Nausea/Vomiting Last Admin: 11/21/18 12:45 Dose: 4 mg Oseltamivir Phosphate (Tamiflu Cap) 75 mg PO BID [facility]; Protocol Stop: 11/26/18 07:45 Last Admin: 11/24/18 11:32 Dose: 75 mg Oxycodone HCl (Oxycodone Immediate Release Tab) 5 mg PO Q4 PRN PRN Reason: Pain, severe (8-10) Last Admin: 11/24/18 14:33 Dose: 5 mg Polyethylene Glycol (Miralax) 17 gm PO BID [facility] Last Admin: 11/24/18 11:31 Dose: Not Given - Labs Labs: 11/24/18 06:20 11/24/18 06:20 PT 14.4 SECONDS (9.4-12.5) H 11/18/18 11:30 INR 1.27 11/18/18 11:30 APTT 30.4 Seconds (26.9-38.3) 11/18/18 11:30 - Constitutional Appears: Non-toxic, No Acute Distress, Chronically Ill - Head Exam Head Exam: ATRAUMATIC, NORMOCEPHALIC - Eye Exam Eye Exam: EOMI, PERRL Pupil Exam: NORMAL ACCOMODATION, PERRL - ENT Exam ENT Exam: Mucous Membranes Moist, Normal External Ear Exam, TM's Normal Bilaterally - Neck Exam Neck Exam: Full ROM, Normal Inspection - Respiratory Exam Respiratory Exam: Clear to Ausculation Bilateral, NORMAL BREATHING PATTERN. absent: Rales, Rhonchi, Wheezes - Cardiovascular Exam Cardiovascular Exam: REGULAR RHYTHM, RRR, +S1, +S2 - GI/Abdominal Exam GI & Abdominal Exam: Soft, Normal Bowel Sounds. absent: Distended, Tenderness - Extremities Exam Extremities Exam: Full ROM, Normal Inspection - Neurological Exam Neurological Exam: Alert, Awake, CN II-XII Intact, Oriented x3 - Psychiatric Exam Psychiatric exam: Normal Affect, Normal Mood - Skin Skin Exam: Intact, Normal Color Assessment and Plan - Assessment and Plan (Free Text) Assessment: 47 yo female with metastatic (stage 4) Ovarian cancer to bone and lungs with chronic severe back pain. Had PET CT suggestive of Pathologic Vertebral Body fracture of the L-spine. Kyphoplasty done on 11/18/2018. The patient with fevers up to 102.1 F yesterday AM. Leukopenia noted as well. Check for Influenza and other viruses such as CMV and EBV. Start Tamiflu for now. Leukopenia and fevers can be secondary to recent Kyphoplasty surgery as well. Send belcher cultures for evaluation. Currently on Cefepime for antibiotic coverage. Tmax on 11/20/2018 was 103.0 F. Afebrile so far today but temperature of 100.9 F over two nights ago. CMV and EBV ordered for the AM. Influenza testing was negative. Cultures negative to date regarding blood cultures. CMV IgG of 5.1. Consider total of 5-7 days of antibiotic therapy. Thank you for allowing me to participate in the care of the patient, we will follow with you.
[2018-11-24 16:25] VITALS: TEMP 99.1
[2018-11-24] MEDS: Cefepime 1gm in NS 100ml 1 GM/100 ML BAG IVPB SCH ×2 (17:24→21:41)
--- NOTE | 2018-11-24 20:14 | CP.PCM.PN ---
<Genaro Waller - Last Filed: 11/24/18 22:15> Subjective - Date & Time of Evaluation Date of Evaluation: 11/24/18 Time of Evaluation: 09:00 - Subjective Subjective: PGY-1 Medicine Progress note for Dr. Zuniga Patient seen and examined at bedside. Patient has not had a fever in more than 24 hours. She is complaining of lower back pain. She denies fevers, chills, shortness of breath, chest pain, abdominal pain, nausea, vomiting, diarrhea, or urinary symptoms. Objective - Vital Signs/Intake and Output Vital Signs (last 24 hours): Temp Pulse Resp BP Pulse Ox 99.1 F 115 H 19 145/95 H 96 11/24/18 16:24 11/24/18 16:24 11/24/18 16:24 11/24/18 16:24 11/24/18 16:24 - Medications Medications: Current Medications Acetaminophen (Tylenol 325mg Tab) 650 mg PO Q4 PRN PRN Reason: fever > 100.4 /mild pain (1-3) Last Admin: 11/22/18 17:50 Dose: 650 mg Enoxaparin Sodium (Lovenox) 40 mg SC DAILY [facility]; Protocol Last Admin: 11/24/18 11:31 Dose: Not Given Folic Acid (Folic Acid) 1 mg PO DAILY [facility] Last Admin: 11/24/18 11:23 Dose: 1 mg Cefepime HCl (Maxipime 1gm) 1 gm in 100 mls @ 100 mls/hr IVPB Q12 [facility]; Protocol Last Admin: 11/24/18 17:24 Dose: Not Given Sodium Chloride (Sodium Chloride 0.9%) 1,000 mls @ 75 mls/hr IV .[id number] [facility] Last Admin: 11/24/18 05:11 Dose: 75 mls/hr Ketorolac Tromethamine (Toradol) 15 mg IVP Q6 PRN PRN Reason: Pain, Mild (1-3) Last Admin: 11/24/18 17:36 Dose: 15 mg Lidocaine (Lidoderm) 1 ea TD DAILY [facility] Last Admin: 11/24/18 14:35 Dose: 1 ea Lidocaine HCl (Lidocaine 2% Viscous) 15 ml PO Q3H PRN PRN Reason: Pain, moderate (4-7) Last Admin: 11/22/18 16:15 Dose: 15 ml Morphine Sulfate (Morphine Extended Release Tab) 30 mg PO Q12 [facility] Last Admin: 11/24/18 09:44 Dose: 30 mg Multivitamins (Thera Tab) 1 tab PO DAILY [facility] Last Admin: 11/24/18 11:23 Dose: 1 tab Ondansetron HCl (Zofran Inj) 4 mg IVP Q6H PRN PRN Reason: Nausea/Vomiting Last Admin: 11/21/18 12:45 Dose: 4 mg Oseltamivir Phosphate (Tamiflu Cap) 75 mg PO BID [facility]; Protocol Stop: 11/26/18 07:45 Last Admin: 11/24/18 17:35 Dose: 75 mg Oxycodone HCl (Oxycodone Immediate Release Tab) 5 mg PO Q4 PRN PRN Reason: Pain, severe (8-10) Last Admin: 11/24/18 14:33 Dose: 5 mg Polyethylene Glycol (Miralax) 17 gm PO BID [facility] Last Admin: 11/24/18 17:24 Dose: Not Given - Labs Labs: 11/24/18 06:20 11/24/18 06:20 PT 14.4 SECONDS (9.4-12.5) H 11/18/18 11:30 INR 1.27 11/18/18 11:30 APTT 30.4 Seconds (26.9-38.3) 11/18/18 11:30 - Additional Findings Additional findings: - Constitutional Appears: Chronically Ill, not in distress - Head Exam Head Exam: ATRAUMATIC, NORMAL INSPECTION - Eye Exam Eye Exam: EOMI, Normal appearance - ENT Exam ENT Exam: Normal Oropharynx - Respiratory Exam Respiratory Exam: Clear to Auscultation Bilateral. absent: Rales, Rhonchi, Wheezes, Respiratory Distress - Cardiovascular Exam Cardiovascular Exam: Tachycardia, +S1, +S2. absent: Gallop, Rubs, Systolic Murmur - GI/Abdominal Exam GI & Abdominal Exam: Normal Bowel Sounds, Soft. absent: Distended, Guarding, Tenderness - Extremities Exam Extremities exam: Positive for: tenderness. No edema noted. - Neurological Exam Neurological exam: Alert, CN II-XII Intact, Oriented x3 - Psychiatric Exam Psychiatric exam: Normal Affect, Normal Mood - Skin Skin Exam: Dry, Intact, Normal Color, Warm Assessment and Plan - Assessment and Plan (Free Text) Assessment: 47 year old female with past medical history of Stage IV ovarian cancer with mets to lung and bone (Currently on chemo), chronic back pain, presents with chief complaint of intractable back pain. Patient is s/p RFA of L3 and kyphoplasty of L3 on 11/18. Plan: Neutropenic fever, resolved - Likely secondary to chemotherapy - Blood cultures: no growth to date - UA: moderate LE, few WBC - Urine culture contaminated - CT abdomen/pelvis IV contrast: Multiple metastatic lesions to bases of lungs and bones. No evidence of disciitis osteomyelitis. - CXR: no acute disease - Cefepime 1g IV Q12 (Started on 11/20) - Continue Tamiflu - Influenza negative - Granix 480 mcg given - Neutropenic precautions discontinued - ID consulted, Dr. Joyce Sinus tachycardia - Likely 2/2 pain vs fever - CTA chest: Negative for PE - EKG: Sinus tachycardia @ 135, no ST changes - LE Venous Dopplers: No DVT - Pain control with Toradol, Lidoderm, Morphine ER, and Oxycodone Constipation - C/w Miralax BID - Received Dulcolax suppositories and fleet enema Apthous ulcers - Lidocaine 2% viscous - Daily multivitamins Normocytic anemia - Patient got 2 units of PRBC - Heme-onc consulted, Dr. John Urban - anemia 2/2 chemotherapy and chronic disease from malignancy, s/p dose of Aranesp - Continue to monitor H&H Intractable back pain- likely 2/2 to metastatic cancer - PET Scan (11/03): Pulmonary and osseous metastatic disease. Lytic lesion at L3 vertebral body with cortical disruption concerning for pathologic fracture. - MRI of Lumbar spine: Diffuse bony metastatic disease throughout the spine. No evidence of vertebral compression fracture or epidural invasion. Disc degeneration with foraminal stenosis at L5-S1 - Patient is s/p RFA of L3 and kyphoplasty of L3 on 11/18 - CA 125 elevated at 167 - Toradol 15mg IV Q6 PRN - Morphine 30 mg Q12 extended release - Oxycodone 5 q 4 PRN - Lidoderm patch - Zofran 4 mg q6h for nausea - Heme-Onc consulted, Dr. John Urban - IR consulted, Dr. Mao Lechuga - Continue to work with PT/OT Folate deficiency - Daily Folic acid supplementation Prophylaxis: - Lovenox, SCDs Disposition: PT recommended [facility], but patient refuses to go. Patient seen and case discussed with attending, Dr. Zuniga. Genaro Waller, PGY-1 <Marjorie Zuniga - Last Filed: 11/26/18 18:21> Objective - Vital Signs/Intake and Output Vital Signs (last 24 hours): Temp Pulse Resp BP Pulse Ox 99.1 F 84 18 102/55 L 94 L 11/24/18 16:24 11/25/18 17:32 11/25/18 17:32 11/25/18 17:32 11/25/18 17:32 - Labs Labs: 11/25/18 06:00 11/25/18 06:00 PT 14.4 SECONDS (9.4-12.5) H 11/18/18 11:30 INR 1.27 11/18/18 11:30 APTT 30.4 Seconds (26.9-38.3) 11/18/18 11:30 Attending/Attestation - Attestation I have personally seen and examined this patient.: Yes I have fully participated in the care of the patient.: Yes I have reviewed all pertinent clinical information, including history, physical exam and plan: Yes Notes (Text): 11/26/18 18:21 Medical record note made by the resident after discussion with my direction and input after the patient was personally seen and examined by me. I have reviewed the chart and agree that the record accurately reflects by personal performance of the history, physical exam, data review, and medical decision-making, in the course for the patient. I have also personally directed the plan of care.
[2018-11-25] MEDS: oxyCODONE 5 mg Immediate Release Tab PO PRN ×2 (06:18→15:44)
[2018-11-25 06:48] LABS: HEMOGLOBIN 9.6 g/dL (12.0-16.0); LYMPH # 0.3 (1.2-3.4); LYMPH % 11.7 % (22.0-35.0); MEAN CELL VOLUME 86.6 fl (80.0-105.0); MEAN CORPUSCULAR HEMOGLOBIN 27.3 pg (25.0-35.0); MEAN CORPUSCULAR HGB CONC 31.5 g/dl (31.0-37.0); MONO # 0.8 (0.1-0.6); MONO % 28.1 % (1.0-6.0); PLATELET COUNT 171 10^3/uL (120.0-450.0); RBC 3.52 10^6/uL (3.5-6.1); RED CELL DISTRIBUTION WIDTH 19.1 % (11.5-14.5); WHITE BLOOD COUNT 2.8 10^3/uL (4.5-11.0)
[2018-11-25 06:51] LABS: ALB/GLOB RATIO 0.9 (1.1-1.8); ALBUMIN 2.6 g/dL (3.0-4.8); ALT/SGPT 33 U/L (7-56); AST/SGOT 53 U/L (14-36); BLOOD UREA NITROGEN 7 mg/dL (7-21); CALCIUM 8.2 mg/dL (8.4-10.5); GFR NON-AFRICAN AMERICAN > 60
[2018-11-25 08:07] LABS: BAND 5 % (0-2); LYMPHOCYTE 17 % (22.0-35.0); METAMYELOCYTE 1 %; MONOCYTE 19 % (1.0-6.0); MYELOCYTE 2 %; NEUTROPHIL 56 % (50.0-70.0); NUCLEATED RED BLOOD CELL 3 %
[2018-11-25 08:08] LABS: LARGE PLATELETS PRESENT; PLATELET ESTIMATE NORMAL (NORMAL)
[2018-11-25] MEDS ORDERED: Potassium Chloride 40 mEq/30 ml LIQ UD PO ONE (08:29)
[2018-11-25] MEDS: Lidocaine 5% Patch TD SCH (09:37)
[2018-11-25] MEDS: Enoxaparin 40 mg Syringe SC SCH (09:37)
[2018-11-25] MEDS: POLYETHYLENE GLYCOL 3350 17 GM/Dose PACKET PO SCH ×2 (09:39→17:34)
[2018-11-25] MEDS: Morphine 30 mg SR Tab PO SCH (09:39)
[2018-11-25] MEDS: Sodium Chloride 0.9% 1,000 ML IV SCH (09:40)
[2018-11-25] MEDS: Multivitamin Therapeutic Tab PO SCH (09:41)
[2018-11-25] MEDS: Cefepime 1gm in NS 100ml 1 GM/100 ML BAG IVPB SCH (12:20)
--- NOTE | 2018-11-25 14:04 | CP.PCM.DIS ---
<López Moore - Last Filed: 11/25/18 14:20> Provider - Provider Date of Admission: 11/17/18 09:15 Attending physician: Marjorie Zuniga MD Consults: 11/17/18 09:18 Consult [Physician Consult] Routine Comment: Consulting Provider: Mao Lechuga Consulting Physician: Mao Lechuga Reason for Consult: pathologic fx, L3 11/17/18 09:55 Physiatry Consult Routine Comment: Consulting Provider: John Urban Consulting Physician: John Urban Reason for Consult: Hx of metastatic ovarian CA, anemia 11/17/18 13:24 Nursing Referral for Palliative Care Routine Comment: carly score Physician Instructions: Reason For Exam: assess Social Work Referral Routine Comment: d/c plan Physician Instructions: Reason For Exam: assess 11/17/18 14:19 Case Management Referral Routine Comment: Physician Instructions: Reason For Exam: Reason for Referral: Discharge Planning Inpatient PHOTO EQUIPMENT TECHNICIAN Core Measures Referral Routine Comment: pain to back shoulders left leg Physician Instructions: Reason For Exam: assess Nursing Referral for Wound Care Routine Comment: prevention Physician Instructions: Reason For Exam: assess Transition In Care/Readmission Reduction Routine Comment: back pain Physician Instructions: Reason For Exam: assess 11/19/18 12:25 Palliative Care Consult Routine Comment: Consulting Provider: Crystal Cortes Physician Instructions: Reason For Exam: Stage IV Ovarian cancer 11/20/18 07:01 Infectious Disease Consult Routine Comment: Consulting Provider: Sebastian Joyce Consulting Physician: Sebastian Joyce Reason for Consult: Fever Time Spent in preparation of Discharge (in minutes): 40 Diagnosis - Discharge Diagnosis (1) Neutropenic fever Status: Resolved (2) S/P kyphoplasty Status: Acute (3) Constipation due to pain medication Status: Chronic (4) Ovarian cancer Status: Chronic (5) Pancytopenia Status: Chronic Hospital Course - Lab Results Lab Results: Micro Results 11/19/18 13:30 Blood-Venous Blood Culture - Final NO GROWTH AFTER 5 DAYS 11/19/18 13:30 Blood-Venous Gram Stain - Final TEST NOT PERFORMED 11/17/18 08:30 Blood Blood Culture - Final NO GROWTH AFTER 5 DAYS 11/17/18 08:30 Blood Gram Stain - Final TEST NOT PERFORMED 11/17/18 08:00 Blood Blood Culture - Final NO GROWTH AFTER 5 DAYS 11/17/18 08:00 Blood Gram Stain - Final TEST NOT PERFORMED 11/20/18 07:00 Urine,Clean Catch Urine Culture - Final 50-100,000 CFU/ML. MULTIPLE SPECIES. SUGGEST REPEAT SPECIMEN. Most Recent Lab Values WBC 2.8 10^3/uL (4.5-11.0) L 11/25/18 06:00 RBC 3.52 10^6/uL (3.5-6.1) 11/25/18 06:00 Hgb 9.6 g/dL (12.0-16.0) L 11/25/18 06:00 Hct 30.5 % (36.0-48.0) L 11/25/18 06:00 MCV 86.6 fl (80.0-105.0) 11/25/18 06:00 MCH 27.3 pg (25.0-35.0) 11/25/18 06:00 MCHC 31.5 g/dl (31.0-37.0) 11/25/18 06:00 RDW 19.1 % (11.5-14.5) H 11/25/18 06:00 Plt Count 171 10^3/uL (120.0-450.0) 11/25/18 06:00 Manual Plt Count 100 K/mm3 (120-450) L 11/22/18 07:30 MPV 10.0 fl (7.0-11.0) 11/25/18 06:00 Neut % (Auto) 60.2 % (50.0-68.0) 11/25/18 06:00 Lymph % (Auto) 11.7 % (22.0-35.0) L 11/25/18 06:00 Clayton % (Auto) 28.1 % (1.0-6.0) H 11/25/18 06:00 Eos % (Auto) 0.0 % (1.5-5.0) L 11/25/18 06:00 Baso % (Auto) 0.0 % (0.0-3.0) 11/25/18 06:00 Lymph # (Auto) 0.3 (1.2-3.4) L 11/25/18 06:00 Clayton # (Auto) 0.8 (0.1-0.6) H 11/25/18 06:00 Eos # (Auto) 0.0 (0.0-0.7) 11/25/18 06:00 Baso # (Auto) 0.00 K/mm3 (0.0-2.0) 11/25/18 06:00 Absolute Neuts (auto) 1.69 (1.4-6.5) 11/25/18 06:00 Neutrophils % (Manual) 56 % (50.0-70.0) 11/25/18 06:00 Band Neutrophils % 5 % (0-2) H 11/25/18 06:00 Lymphocytes % (Manual) 17 % (22.0-35.0) L 11/25/18 06:00 Atypical Lymphs % 1 % (0.0-0.0) H 11/21/18 07:00 Monocytes % (Manual) 19 % (1.0-6.0) H 11/25/18 06:00 Metamyelocytes % 1 % 11/25/18 06:00 Myelocytes % 2 % 11/25/18 06:00 Nucleated RBC % 3 % 11/25/18 06:00 Differential Comment See pathology report 11/20/18 06:00 Platelet Evaluation Normal (NORMAL) 11/25/18 06:00 Large Platelets Present 11/25/18 06:00 Hypochromasia 1+ 11/21/18 07:00 Anisocytosis (manual) 2+ 11/21/18 07:00 Retic Count 0.26 % (0.5-1.5) L 11/17/18 09:59 PT 14.4 SECONDS (9.4-12.5) H 11/18/18 11:30 INR 1.27 11/18/18 11:30 APTT 30.4 Seconds (26.9-38.3) 11/18/18 11:30 Sodium 135 mmol/L (132-148) 11/25/18 06:00 Potassium 3.3 mmol/L (3.6-5.0) L 11/25/18 06:00 Chloride 100 mmol/L (98-107) 11/25/18 06:00 Carbon Dioxide 27 mmol/L (21-33) 11/25/18 06:00 Anion Gap 11 (10-20) 11/25/18 06:00 BUN 7 mg/dL (7-21) 11/25/18 06:00 Creatinine 0.3 mg/dl (0.7-1.2) L 11/25/18 06:00 Est GFR ( Amer) > 60 11/25/18 06:00 Est GFR (Non-Af Amer) > 60 11/25/18 06:00 Random Glucose 92 mg/dL (70-110) 11/25/18 06:00 Calcium 8.2 mg/dL (8.4-10.5) L 11/25/18 06:00 Phosphorus 3.1 mg/dL (2.5-4.5) 11/25/18 06:00 Magnesium 1.8 mg/dL (1.7-2.2) 11/25/18 06:00 Iron 71 ug/dL (45-180) 11/17/18 09:59 TIBC 160 ug/dL (265-497) L 11/17/18 09:59 % Saturation 45 % (20-55) 11/17/18 09:59 Ferritin 862.0 ng/mL 11/17/18 09:59 Total Bilirubin 0.5 mg/dL (0.2-1.3) 11/25/18 06:00 AST 53 U/L (14-36) H 11/25/18 06:00 ALT 33 U/L (7-56) 11/25/18 06:00 Alkaline Phosphatase 129 U/L (38-126) H 11/25/18 06:00 Troponin I < 0.01 ng/mL 11/17/18 21:44 Total Protein 5.4 g/dL (5.8-8.3) L 11/25/18 06:00 Albumin 2.6 g/dL (3.0-4.8) L 11/25/18 06:00 Globulin 2.8 gm/dL 11/25/18 06:00 Albumin/Globulin Ratio 0.9 (1.1-1.8) L 11/25/18 06:00 CA 125 Antigen 167 U/mL (0-35) H D 11/18/18 05:30 Vitamin B12 571 pg/mL (239-931) 11/17/18 09:59 Folate 2.6 ng/mL 11/17/18 09:59 RBC Folate 778 ng/mL RBC (>280) 11/19/18 06:00 Urine Color Dark yellow (YELLOW) 11/20/18 07:00 Urine Appearance Clear (CLEAR) 11/20/18 07:00 Urine pH 6.5 (4.7-8.0) 11/20/18 07:00 Ur Specific Mckinney 1.015 (1.005-1.035) 11/20/18 07:00 Urine Protein Negative mg/dL (<30 mg/dL) 11/20/18 07:00 Urine Glucose (UA) Negative mg/dL (NEGATIVE) 11/20/18 07:00 Urine Ketones Negative mg/dL (NEGATIVE) 11/20/18 07:00 Urine Blood Trace-intact (NEGATIVE) H 11/20/18 07:00 Urine Nitrate Negative (NEGATIVE) 11/20/18 07:00 Urine Bilirubin Negative (NEGATIVE) 11/20/18 07:00 Urine Urobilinogen 4.0 E.U./dL (<1 E.U./dL) H 11/20/18 07:00 Ur Leukocyte Esterase Moderate Maxi/uL (NEGATIVE) H 11/20/18 07:00 Urine RBC 0 - 2 /hpf (0-2) 11/20/18 07:00 Urine WBC 2 - 5 /hpf (0-6) 11/20/18 07:00 Ur Epithelial Cells 1 - 3 /hpf (0-5) 11/20/18 07:00 Urine Bacteria Mod /hpf (NONE) 11/17/18 17:20 CMV IgG Ab 5.10 U/mL H 11/22/18 07:30 CMV IgM Ab <30.00 AU/mL 11/22/18 07:30 EBV EA IgG Ab Interp <9.00 U/mL (<9.00) 11/22/18 07:30 Influenza Typ A,B (EIA) Negative for flu a/b (NEGATIVE) 11/22/18 02:00 Blood Type O POSITIVE 11/21/18 07:00 Blood Type Confirm O POSITIVE 11/17/18 10:06 Antibody Screen Negative 11/21/18 07:00 Crossmatch See Detail 11/21/18 07:00 BBK History Checked Patient has bt 11/21/18 07:00 - Hospital Course Hospital Course: Patient is a 47 year old female with 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 Patient reported that she saw her PMD, Dr. Urban, on the morning of admission who referred her to go to the hospital for lumbar spine MRI and kyphoplasty with Dr. Mao Lechuga. Patient had PET scan on 11/04 which was remarkable for probable L3 fracture. MRI Lumbar spine was done and showed diffuse bony metastatic disease throughout the spine, no evidence of compression fracture or epidural invasion, and disc deneration with foraminal stenosis at L5-S1. EKG on admission showed sinus tachy at 134, no STEMI. CXR showed 4.8 mass in left upper lobe and 12mm nodule at right lung base, unchanged from previous. LE Venous Dopplers were done, showing no evidence of DVT. Patient was given Toradol, Lidoderm patch, and Morphine PRN for pain. Patient was given Miralax for constipation and IVF. Heme- onc (Dr. John Urban) and IR (Dr. Mao Lechuga) were consulted. Patient is s/p Kyphoplasty of L3 and RFA of L3 on 11/[address] Mao Lechuga. Patient's stay was complicated with neutropenic fever. Patient was placed on neutropenic precautions and given Granix and Empiric antibiotics. Repeat blood cultures were negative. UA showed moderate leukocyte esterase but no nitrates. Urine culture was contaminated. There were no pharyngeal/oral thrush noted, no decubitus ulcers noted. Chest xray was negative for PNA. Chest CTA showed no PE. CT abd/pelvis showed metastatic disease of bones and lungs. Upon discharge, patient has had no fevers for more than 24 hours. Patient is discharged with Lidocaine patches and Percocet for her pain. Patient was also given a bowel regemin and instructed to complete 7 day course of Omnicef and 1 additional day of Tamiflu. She was instructed to follow up with Dr. Urban for more pain medications. Physical therapy recommended JASMINA but patient refused and states that she wants to go home. Patient is medically optimized for discharge. Medications on Discharge: - Omnicef 300 mg PO BID x7 days - Colace 100 mg daily - Folic Acid 1 mg daily - MV 1 tab daily - Tamiflu 75 mg BID x1 day - Miralax Discharge Exam - Head Exam Head Exam: ATRAUMATIC, NORMOCEPHALIC - Eye Exam Eye Exam: Normal appearance Pupil Exam: NORMAL ACCOMODATION - ENT Exam ENT Exam: Mucous Membranes Moist - Respiratory Exam Respiratory Exam: Clear to PA & Lateral. absent: Rales, Rhonchi, Wheezes - Cardiovascular Exam Cardiovascular Exam: RRR, +S1, +S2. absent: Diastolic murmur, Gallop, Rubs, Systolic Murmur - GI/Abdominal Exam GI & Abdominal Exam: Normal Bowel Sounds. absent: Distended, Guarding, Rebound, Soft, Tenderness - Extremities Exam Extremities exam: normal inspection - Back Exam Back exam: NORMAL INSPECTION - Neurological Exam Neurological exam: Alert, CN II-XII Intact, Oriented x3 - Psychiatric Exam Psychiatric exam: Normal Affect, Normal Mood - Skin Skin Exam: Dry, Intact, Normal Color, Warm Discharge Plan - Discharge Medications Prescriptions: Cefdinir [Omnicef] 300 mg PO BID #14 cap Docusate [Colace] 100 mg PO DAILY #14 cap Folic Acid 1 mg PO DAILY #15 tab Lidocaine 5% [Lidoderm] 1 ea TD DAILY #5 patch Multivitamin Therapeutic Tab [Thera Tab] 1 tab PO DAILY #15 tab Oseltamivir Cap [Tamiflu Cap] 75 mg PO BID #4 capsule Polyethylene Glycol 3350 [Miralax] 17 gr PO DAILY #14 ml - Follow Up Plan Condition: STABLE Disposition: DISCHARGED TO HOME CARE Instructions: Back Pain (GEN) Additional Instructions: Please follow-up with your Primary care doctor, Dr. John Urban, within 7 days of discharge. Complete 7 more days of Omnicef 300mg twice daily. Complete 1 more day of Tamiflu. Take Colace and Miralax daily for your constipation. Continue Lidoderm patch once daily or as needed. You may take over the counter Motrin as needed for pain. Resume home medications as prescribed by your doctor. If symptoms return please promptly go to nearest emergency department Referrals: John Urban MD [Staff Provider] - <Marjorie Zuniga - Last Filed: 11/26/18 18:21> Provider - Provider Date of Admission: 11/17/18 09:15 Attending physician: Marjorie Zuniga MD Consults: 11/17/18 09:18 Consult [Physician Consult] Routine Comment: Consulting Provider: Mao Lechuga Consulting Physician: Mao Lechuga Reason for Consult: pathologic fx, L3 11/17/18 09:55 Physiatry Consult Routine Comment: Consulting Provider: John Urban Consulting Physician: John Urban Reason for Consult: Hx of metastatic ovarian CA, anemia 11/17/18 13:24 Nursing Referral for Palliative Care Routine Comment: carly score Physician Instructions: Reason For Exam: assess Social Work Referral Routine Comment: d/c plan Physician Instructions: Reason For Exam: assess 11/17/18 14:19 Case Management Referral Routine Comment: Physician Instructions: Reason For Exam: Reason for Referral: Discharge Planning Inpatient PHOTO EQUIPMENT TECHNICIAN Core Measures Referral Routine Comment: pain to back shoulders left leg Physician Instructions: Reason For Exam: assess Nursing Referral for Wound Care Routine Comment: prevention Physician Instructions: Reason For Exam: assess Transition In Care/Readmission Reduction Routine Comment: back pain Physician Instructions: Reason For Exam: assess 11/19/18 12:25 Palliative Care Consult Routine Comment: Consulting Provider: Crystal Cortes Physician Instructions: Reason For Exam: Stage IV Ovarian cancer 11/20/18 07:01 Infectious Disease Consult Routine Comment: Consulting Provider: Sebastian Joyce Consulting Physician: Sebastian Joyce Reason for Consult: Fever Hospital Course - Lab Results Lab Results: Micro Results 11/19/18 13:30 Blood-Venous Blood Culture - Final NO GROWTH AFTER 5 DAYS 11/19/18 13:30 Blood-Venous Gram Stain - Final TEST NOT PERFORMED 11/17/18 08:30 Blood Blood Culture - Final NO GROWTH AFTER 5 DAYS 11/17/18 08:30 Blood Gram Stain - Final TEST NOT PERFORMED 11/17/18 08:00 Blood Blood Culture - Final NO GROWTH AFTER 5 DAYS 11/17/18 08:00 Blood Gram Stain - Final TEST NOT PERFORMED 11/20/18 07:00 Urine,Clean Catch Urine Culture - Final 50-100,000 CFU/ML. MULTIPLE SPECIES. SUGGEST REPEAT SPECIMEN. Most Recent Lab Values WBC 2.8 10^3/uL (4.5-11.0) L 11/25/18 06:00 RBC 3.52 10^6/uL (3.5-6.1) 11/25/18 06:00 Hgb 9.6 g/dL (12.0-16.0) L 11/25/18 06:00 Hct 30.5 % (36.0-48.0) L 11/25/18 06:00 MCV 86.6 fl (80.0-105.0) 11/25/18 06:00 MCH 27.3 pg (25.0-35.0) 11/25/18 06:00 MCHC 31.5 g/dl (31.0-37.0) 11/25/18 06:00 RDW 19.1 % (11.5-14.5) H 11/25/18 06:00 Plt Count 171 10^3/uL (120.0-450.0) 11/25/18 06:00 Manual Plt Count 100 K/mm3 (120-450) L 11/22/18 07:30 MPV 10.0 fl (7.0-11.0) 11/25/18 06:00 Neut % (Auto) 60.2 % (50.0-68.0) 11/25/18 06:00 Lymph % (Auto) 11.7 % (22.0-35.0) L 11/25/18 06:00 Clayton % (Auto) 28.1 % (1.0-6.0) H 11/25/18 06:00 Eos % (Auto) 0.0 % (1.5-5.0) L 11/25/18 06:00 Baso % (Auto) 0.0 % (0.0-3.0) 11/25/18 06:00 Lymph # (Auto) 0.3 (1.2-3.4) L 11/25/18 06:00 Clayton # (Auto) 0.8 (0.1-0.6) H 11/25/18 06:00 Eos # (Auto) 0.0 (0.0-0.7) 11/25/18 06:00 Baso # (Auto) 0.00 K/mm3 (0.0-2.0) 11/25/18 06:00 Absolute Neuts (auto) 1.69 (1.4-6.5) 11/25/18 06:00 Neutrophils % (Manual) 56 % (50.0-70.0) 11/25/18 06:00 Band Neutrophils % 5 % (0-2) H 11/25/18 06:00 Lymphocytes % (Manual) 17 % (22.0-35.0) L 11/25/18 06:00 Atypical Lymphs % 1 % (0.0-0.0) H 11/21/18 07:00 Monocytes % (Manual) 19 % (1.0-6.0) H 11/25/18 06:00 Metamyelocytes % 1 % 11/25/18 06:00 Myelocytes % 2 % 11/25/18 06:00 Nucleated RBC % 3 % 11/25/18 06:00 Differential Comment See pathology report 11/20/18 06:00 Platelet Evaluation Normal (NORMAL) 11/25/18 06:00 Large Platelets Present 11/25/18 06:00 Hypochromasia 1+ 11/21/18 07:00 Anisocytosis (manual) 2+ 11/21/18 07:00 Retic Count 0.26 % (0.5-1.5) L 11/17/18 09:59 PT 14.4 SECONDS (9.4-12.5) H 11/18/18 11:30 INR 1.27 11/18/18 11:30 APTT 30.4 Seconds (26.9-38.3) 11/18/18 11:30 Sodium 135 mmol/L (132-148) 11/25/18 06:00 Potassium 3.3 mmol/L (3.6-5.0) L 11/25/18 06:00 Chloride 100 mmol/L (98-107) 11/25/18 06:00 Carbon Dioxide 27 mmol/L (21-33) 11/25/18 06:00 Anion Gap 11 (10-20) 11/25/18 06:00 BUN 7 mg/dL (7-21) 11/25/18 06:00 Creatinine 0.3 mg/dl (0.7-1.2) L 11/25/18 06:00 Est GFR ( Amer) > 60 11/25/18 06:00 Est GFR (Non-Af Amer) > 60 11/25/18 06:00 Random Glucose 92 mg/dL (70-110) 11/25/18 06:00 Calcium 8.2 mg/dL (8.4-10.5) L 11/25/18 06:00 Phosphorus 3.1 mg/dL (2.5-4.5) 11/25/18 06:00 Magnesium 1.8 mg/dL (1.7-2.2) 11/25/18 06:00 Iron 71 ug/dL (45-180) 11/17/18 09:59 TIBC 160 ug/dL (265-497) L 11/17/18 09:59 % Saturation 45 % (20-55) 11/17/18 09:59 Ferritin 862.0 ng/mL 11/17/18 09:59 Total Bilirubin 0.5 mg/dL (0.2-1.3) 11/25/18 06:00 AST 53 U/L (14-36) H 11/25/18 06:00 ALT 33 U/L (7-56) 11/25/18 06:00 Alkaline Phosphatase 129 U/L (38-126) H 11/25/18 06:00 Troponin I < 0.01 ng/mL 11/17/18 21:44 Total Protein 5.4 g/dL (5.8-8.3) L 11/25/18 06:00 Albumin 2.6 g/dL (3.0-4.8) L 11/25/18 06:00 Globulin 2.8 gm/dL 11/25/18 06:00 Albumin/Globulin Ratio 0.9 (1.1-1.8) L 11/25/18 06:00 CA 125 Antigen 167 U/mL (0-35) H D 11/18/18 05:30 Vitamin B12 571 pg/mL (239-931) 11/17/18 09:59 Folate 2.6 ng/mL 11/17/18 09:59 RBC Folate 778 ng/mL RBC (>280) 11/19/18 06:00 Urine Color Dark yellow (YELLOW) 11/20/18 07:00 Urine Appearance Clear (CLEAR) 11/20/18 07:00 Urine pH 6.5 (4.7-8.0) 11/20/18 07:00 Ur Specific Mckinney 1.015 (1.005-1.035) 11/20/18 07:00 Urine Protein Negative mg/dL (<30 mg/dL) 11/20/18 07:00 Urine Glucose (UA) Negative mg/dL (NEGATIVE) 11/20/18 07:00 Urine Ketones Negative mg/dL (NEGATIVE) 11/20/18 07:00 Urine Blood Trace-intact (NEGATIVE) H 11/20/18 07:00 Urine Nitrate Negative (NEGATIVE) 11/20/18 07:00 Urine Bilirubin Negative (NEGATIVE) 11/20/18 07:00 Urine Urobilinogen 4.0 E.U./dL (<1 E.U./dL) H 11/20/18 07:00 Ur Leukocyte Esterase Moderate Maxi/uL (NEGATIVE) H 11/20/18 07:00 Urine RBC 0 - 2 /hpf (0-2) 11/20/18 07:00 Urine WBC 2 - 5 /hpf (0-6) 11/20/18 07:00 Ur Epithelial Cells 1 - 3 /hpf (0-5) 11/20/18 07:00 Urine Bacteria Mod /hpf (NONE) 11/17/18 17:20 CMV IgG Ab 5.10 U/mL H 11/22/18 07:30 CMV IgM Ab <30.00 AU/mL 11/22/18 07:30 EBV EA IgG Ab Interp <9.00 U/mL (<9.00) 11/22/18 07:30 Influenza Typ A,B (EIA) Negative for flu a/b (NEGATIVE) 11/22/18 02:00 Blood Type O POSITIVE 11/21/18 07:00 Blood Type Confirm O POSITIVE 11/17/18 10:06 Antibody Screen Negative 11/21/18 07:00 Crossmatch See Detail 11/21/18 07:00 BBK History Checked Patient has bt 11/21/18 07:00 Attending/Attestation - Attestation I have personally seen and examined this patient.: Yes I have fully participated in the care of the patient.: Yes I have reviewed all pertinent clinical information, including history, physical exam and plan: Yes Notes (Text): 11/26/18 18:12 Medical record note made by the resident after discussion with my direction and input after the patient was personally seen and examined by me. I have reviewed the chart and agree that the record accurately reflects by personal performance of the history, physical exam, data review, and medical decision-making, in the course for the patient. I have also personally directed the plan of care. 47 years old female with PMH of stage 4 Ovarian cancer with metastsis to bone and lungs was admitted with with worseing chronic severe back pain. She had PET CT 11/04/18 which was suggestive of Pathologic Vertebral Body fracture of the L-spine. MRI Lumbar spine was done and showed diffuse bony metastatic disease throughout the spine, no evidence of compression fracture or epidural invasion, and disc deneration with foraminal stenosis at L5-S1. Patient was evaluated by IR and underwent Kyphoplasty on 11/18/2018. The patient devloped fevers up to 102.1 F after procedure.She was also Neutropenic.Patient was started on IV antibiotics for Neutropenic fever.ID consult was obtained. No source was identified. Blood cultures remain negative.Neutropenia is improving. Patient responded well to therapy.Antibiotic were deescalated. Patient is afebrile since 48 hours and antibiotics has been changed to oral. Patient has chronic constipation due to Narcotics and decrease motility.She has been started on stool softner. Patient has refused to go to rehab. Patient will follow up with PCP and Oncology. Prognosis is guarded. Risk of readmission is very high . Management plan was discussed in detail with patient. Education was provided 11/26/18 18:20
[2018-11-25] MEDS ORDERED: guaiFENesin DM 200 mg-20 mg/10 ml UD PO STA (15:19)
--- NOTE | 2018-11-25 16:10 | CP.PCM.PN ---
Subjective - Date & Time of Evaluation Date of Evaluation: 11/25/18 Time of Evaluation: 15:00 - Subjective Subjective: Infectious Disease Follow Up: November 25, 2018 47 yo female with Ovarian cancer with mets to lung and bone presented with back pain. The patient has a history of chronic back pain. ID called into case as the patient became Leukopenic and developed fevers up to 102.1 F this morning. Patient received Chemotherapy 5 days prior to this hospitalization. Cultures negative to date. Noted outpatient PET CT scan suggested pathologic vertebral body fracture involving L-spine. Kyphoplasty was performed on 11/19/2018. Afebrile for the last 48 hours now. WBC increased slightly to 2.8. Blood cultures negative. Urine culture with multiple organisms... possibly contamination. Patient's complaint is of back pain right now. No additional issues. Objective - Vital Signs/Intake and Output Vital Signs (last 24 hours): Temp Pulse Resp BP Pulse Ox 99.1 F 115 H 19 145/95 H 96 11/24/18 16:24 11/24/18 16:24 11/24/18 16:24 11/24/18 16:24 11/24/18 16:24 Intake and Output: 11/25/18 11/25/18 06:59 18:59 Intake Total 1000 Balance 1000 - Medications Medications: Current Medications Acetaminophen (Tylenol 325mg Tab) 650 mg PO Q4 PRN PRN Reason: fever > 100.4 /mild pain (1-3) Last Admin: 11/22/18 17:50 Dose: 650 mg Enoxaparin Sodium (Lovenox) 40 mg SC DAILY MARYSE; Protocol Last Admin: 11/25/18 09:37 Dose: 40 mg Folic Acid (Folic Acid) 1 mg PO DAILY MARYSE Last Admin: 11/25/18 09:37 Dose: 1 mg Cefepime HCl (Maxipime 1gm) 1 gm in 100 mls @ 100 mls/hr IVPB Q12 MARYSE; Protocol Last Admin: 11/25/18 12:20 Dose: 100 mls/hr Sodium Chloride (Sodium Chloride 0.9%) 1,000 mls @ 75 mls/hr IV .[id number] MARYSE Last Admin: 11/25/18 09:40 Dose: 75 mls/hr Ketorolac Tromethamine (Toradol) 15 mg IVP Q6 PRN PRN Reason: Pain, Mild (1-3) Last Admin: 11/25/18 11:58 Dose: 15 mg Lidocaine (Lidoderm) 1 ea TD DAILY [facility] Last Admin: 11/25/18 09:37 Dose: 1 ea Lidocaine HCl (Lidocaine 2% Viscous) 15 ml PO Q3H PRN PRN Reason: Pain, moderate (4-7) Last Admin: 11/22/18 16:15 Dose: 15 ml Morphine Sulfate (Morphine Extended Release Tab) 30 mg PO Q12 [facility] Last Admin: 11/25/18 09:39 Dose: 30 mg Multivitamins (Thera Tab) 1 tab PO DAILY [facility] Last Admin: 11/25/18 09:41 Dose: 1 tab Ondansetron HCl (Zofran Inj) 4 mg IVP Q6H PRN PRN Reason: Nausea/Vomiting Last Admin: 11/21/18 12:45 Dose: 4 mg Oxycodone HCl (Oxycodone Immediate Release Tab) 5 mg PO Q4 PRN PRN Reason: Pain, severe (8-10) Last Admin: 11/25/18 15:44 Dose: 5 mg Polyethylene Glycol (Miralax) 17 gm PO BID [facility] Last Admin: 11/25/18 09:39 Dose: 17 gm - Labs Labs: 11/25/18 06:00 11/25/18 06:00 PT 14.4 SECONDS (9.4-12.5) H 11/18/18 11:30 INR 1.27 11/18/18 11:30 APTT 30.4 Seconds (26.9-38.3) 11/18/18 11:30 - Constitutional Appears: Non-toxic, No Acute Distress, Chronically Ill - Head Exam Head Exam: ATRAUMATIC, NORMOCEPHALIC - Eye Exam Eye Exam: EOMI, PERRL Pupil Exam: NORMAL ACCOMODATION, PERRL - ENT Exam ENT Exam: Mucous Membranes Moist, Normal External Ear Exam, TM's Normal Bilaterally - Neck Exam Neck Exam: Full ROM, Normal Inspection - Respiratory Exam Respiratory Exam: Clear to Ausculation Bilateral, NORMAL BREATHING PATTERN. absent: Rales, Rhonchi, Wheezes - Cardiovascular Exam Cardiovascular Exam: REGULAR RHYTHM, RRR, +S1, +S2 - GI/Abdominal Exam GI & Abdominal Exam: Soft, Normal Bowel Sounds. absent: Distended, Tenderness - Extremities Exam Extremities Exam: Full ROM, Normal Inspection - Neurological Exam Neurological Exam: Alert, Awake, CN II-XII Intact, Oriented x3 - Psychiatric Exam Psychiatric exam: Normal Affect, Normal Mood - Skin Skin Exam: Intact, Normal Color Assessment and Plan - Assessment and Plan (Free Text) Assessment: 47 yo female with metastatic (stage 4) Ovarian cancer to bone and lungs with chronic severe back pain. Had PET CT suggestive of Pathologic Vertebral Body fracture of the L-spine. Kyphoplasty done on 11/18/2018. The patient with fevers up to 102.1 F yesterday AM. Leukopenia noted as well. Check for Influenza and other viruses such as CMV and EBV. Start Tamiflu for now. Leukopenia and fevers can be secondary to recent Kyphoplasty surgery as well. Send belcher cultures for evaluation. Currently on Cefepime for antibiotic coverage. Tmax on 11/20/2018 was 103.0 F. Afebrile so far today but temperature of 100.9 F over two nights ago. CMV and EBV ordered for the AM. Influenza testing was negative. Cultures negative to date regarding blood cultures. CMV IgG of 5.1. EBV negative. No additional issues. Consider total of 5-7 days of antibiotic therapy. Thank you for allowing me to participate in the care of the patient, we will follow with you.
[2018-11-25 17:34] VITALS: BP 102/55; PULSE 84; RESP 18; O2SAT 94
--- NOTE | 2018-11-25 19:05 | CARD ---
APPROVED REPORT Date of service: 11/25/2018 EKG Measurement Heart [id number] <Conclusion> Sinus tachycardia NDSTT abnormalities Otherwise normal ECG
--- NOTE | 2018-11-25 20:30 | CP.PCM.PN ---
Subjective - Date & Time of Evaluation Date of Evaluation: 11/24/18 Time of Evaluation: 20:00 - Subjective Subjective: Had enema with bowel movement. Objective - Vital Signs/Intake and Output Vital Signs (last 24 hours): Temp Pulse Resp BP Pulse Ox 99.1 F 84 18 102/55 L 94 L 11/24/18 16:24 11/25/18 17:32 11/25/18 17:32 11/25/18 17:32 11/25/18 17:32 - Labs Labs: 11/25/18 06:00 11/25/18 06:00 PT 14.4 SECONDS (9.4-12.5) H 11/18/18 11:30 INR 1.27 11/18/18 11:30 APTT 30.4 Seconds (26.9-38.3) 11/18/18 11:30 - Head Exam Head Exam: ATRAUMATIC - Eye Exam Eye Exam: Normal appearance - ENT Exam ENT Exam: Mucous Membranes Dry - Respiratory Exam Respiratory Exam: NORMAL BREATHING PATTERN - Cardiovascular Exam Cardiovascular Exam: +S1, +S2 - GI/Abdominal Exam GI & Abdominal Exam: Normal Bowel Sounds Assessment and Plan (1) Pancytopenia Assessment & Plan: secondary to chemotherapy and bone mets neutropenic fever; abx and neutropenic precautions s/p growth factor and transfusion support Status: Chronic (2) Back pain Assessment & Plan: s/p RFA and kyphoplasty to L3 pain meds with bowel regimen Status: Acute (3) Ovarian cancer Assessment & Plan: stage IV outpatient treatment Status: Chronic
--- NOTE | 2018-11-25 20:31 | CP.PCM.PN ---
Subjective - Date & Time of Evaluation Date of Evaluation: 11/25/18 Time of Evaluation: 13:00 - Subjective Subjective: Has back pain. Objective - Vital Signs/Intake and Output Vital Signs (last 24 hours): Temp Pulse Resp BP Pulse Ox 99.1 F 84 18 102/55 L 94 L 11/24/18 16:24 11/25/18 17:32 11/25/18 17:32 11/25/18 17:32 11/25/18 17:32 - Labs Labs: 11/25/18 06:00 11/25/18 06:00 PT 14.4 SECONDS (9.4-12.5) H 11/18/18 11:30 INR 1.27 11/18/18 11:30 APTT 30.4 Seconds (26.9-38.3) 11/18/18 11:30 - Head Exam Head Exam: ATRAUMATIC - Eye Exam Eye Exam: Normal appearance - ENT Exam ENT Exam: Mucous Membranes Dry - Respiratory Exam Respiratory Exam: NORMAL BREATHING PATTERN - Cardiovascular Exam Cardiovascular Exam: +S1, +S2 - GI/Abdominal Exam GI & Abdominal Exam: Normal Bowel Sounds Assessment and Plan (1) Pancytopenia Assessment & Plan: secondary to chemotherapy and bone mets neutropenic fever; abx and neutropenic precautions s/p growth factor and transfusion support Status: Chronic (2) Back pain Assessment & Plan: s/p RFA and kyphoplasty to L3 pain meds with bowel regimen Status: Acute (3) Ovarian cancer Assessment & Plan: stage IV outpatient treatment Status: Chronic
== END 2018-11-25 20:04 | disposition home health service (06) | DRG 866 ==
LOC: ED 07:22 → OBSVTOIN 09:15 → ERH 09:15 → 2RNO 11:53 → 3RNO 11-23 15:54
PROVIDERS: ADMIT Internal Medicine; ATTEND Internal Medicine
PROC: 0Q503ZZ Destruction of Lumbar Vertebra, Percutaneous Approach (ICD-10-PCS; principal; 2018-11-18)
PROC: 0QS03ZZ Reposition Lumbar Vertebra, Percutaneous Approach (ICD-10-PCS; 2018-11-18)
PROC: 0QB03ZX Excision of Lumbar Vertebra, Percutaneous Approach, Diagnostic (ICD-10-PCS; 2018-11-18)
PROC: 0QU03JZ Supplement Lumbar Vertebra with Synthetic Substitute, Percutaneous Approach (ICD-10-PCS; 2018-11-18)
DX: C79.51 Secondary malignant neoplasm of bone (principal); M84.48XA Pathological fracture, other site, initial encounter for fracture; C78.00 Secondary malignant neoplasm of unspecified lung; D61.818 Other pancytopenia; E87.6 Hypokalemia; E53.8 Deficiency of other specified B group vitamins; G89.3 Neoplasm related pain (acute) (chronic); D64.81 Anemia due to antineoplastic chemotherapy; T45.1X5A Adverse effect of antineoplastic and immunosuppressive drugs, initial encounter; D70.1 Agranulocytosis secondary to cancer chemotherapy; R50.81 Fever presenting with conditions classified elsewhere; K59.03 Drug induced constipation; T39.1X5A Adverse effect of 4-Aminophenol derivatives, initial encounter; E83.39 Other disorders of phosphorus metabolism; M48.07 Spinal stenosis, lumbosacral region; R00.0 Tachycardia, unspecified; Z85.43 Personal history of malignant neoplasm of ovary; Z90.710 Acquired absence of both cervix and uterus; Z92.3 Personal history of irradiation